=== PATIENT | male | born 1940 | race Caucasian/White ===

== ENCOUNTER 2016-06-05 15:25 | Inpatient (IN) ==
--- NOTE | 2016-06-05 15:56 | Emergency Department Note ---
Disposition Clinical Impression: Right shoulder pain, Elevated troponin Disposition: Admitted As Inpatient Condition: Fair [facility] - Forms: Work/School Release, ED Satisfaction Letter Time of Disposition: 18:40 Syncope HPI - General Chief Complaint: ED General Medical Stated Complaint: + trop, high WBC Time Seen by Provider: 06/05/16 15:36 Source: patient, EMS Limitations: no limitations Nursing Notes Reviewed: Yes Vital Signs Reviewed: Yes - History of Present Illness HPI Narrative: Patient to the emergency department with a chief complaint of right shoulder pain. Patient went to the [place] today because he is having pain from his right shoulder to his elbow. Denies injury. States it started about a week ago and has gotten worse. No fever. Patient states she had a syncopal episode as well yesterday. His last thing he remembers is waking up with EMS at his feet. Patient went to the [place] urgent care today and was found to have an elevated white blood cell count troponin. He was sent here for evaluation. - Related Data Home Medications Medication Instructions Recorded Confirmed Aspirin 1 mg PO DAILY 11/13/14 06/05/16 Digoxin [Lanoxin] 0.125 mg PO DAILY 11/13/14 06/05/16 Losartan [Cozaar] 25 mg PO DAILY 11/13/14 06/05/16 Metoprolol Succinate 200 mg PO DAILY 11/13/14 06/05/16 Nitroglycerin [Nitrostat] 0.4 mg SL Q5M PRN 11/13/14 06/05/16 Randolph-3 Fatty Acids [Randolph-3] 2,000 mg PO BID 11/13/14 06/05/16 Potassium Chloride 10 meq PO DAILY 11/13/14 06/05/16 Rivaroxaban [Xarelto] 15 mg PO DAILY 11/13/14 06/05/16 Spironolactone 25 mg PO DAILY 11/13/14 06/05/16 Terazosin HCl 1 mg PO HS 11/13/14 06/05/16 Tiotropium [Spiriva] 18 mcg IH DAILY 11/13/14 06/05/16 Acetaminophen [Tylenol] 650 mg PO TID PRN 06/05/16 06/05/16 Albuterol Sulfate [Albuterol 2 puff IH Q6H PRN 06/05/16 06/05/16 Inhaler] Allopurinol [Zyloprim 100 MG] 100 mg PO DAILY 06/05/16 06/05/16 Calcium Citrate 400 mg PO DAILY 06/05/16 06/05/16 Carboxymethylcellulose Sodium 1 drop BOTH EYES QID 06/05/16 06/05/16 [Refresh Liquigel] Cholecalciferol (D-3) [Vitamin D] 2,000 unit PO DAILY 06/05/16 06/05/16 Cyclobenzaprine [Flexeril] 10 mg PO TID PRN 06/05/16 06/05/16 Dextrose [Glucose] 4 gm PO AD PRN 06/05/16 06/05/16 Diclofenac Sodium [Voltaren] 2 gm TP BID PRN 06/05/16 06/05/16 Ergocalciferol (VITAMIN D2) 50,000 unit PO QWEEK 06/05/16 06/05/16 [Vitamin D2] Etanercept [Enbrel] 50 mg SQ QWEEK 06/05/16 06/05/16 Eucerin Creme 1 appl TP DAILY 06/05/16 06/05/16 Hydroxychloroquine [Plaquenuil] 200 mg PO BID 06/05/16 06/05/16 Insulin ASPART [NovoLOG] 25 unit SQ TIDWM 06/05/16 06/05/16 Insulin Glargine,Hum.rec.anlog 55 unit SQ BID 06/05/16 06/05/16 [Lantus Solostar] Ketotifen Fumarate 1 drop BOTH EYES BID 06/05/16 06/05/16 Lidocaine 4% CRM (LMX) [Lmx 4] 1 appl TP BID PRN 06/05/16 06/05/16 Metformin HCl [Fortamet] 1,000 mg PO QPM 06/05/16 06/05/16 Metolazone [Zaroxolyn] 2.5 mg PO 3XW 06/05/16 06/05/16 Mineral Oil/Petrolatum,White 1 appl BOTH EYES HS 06/05/16 06/05/16 [Refresh P.m. Ointment] Olodaterol HCl [Striverdi Respimat] 2 puff IH DAILY 06/05/16 06/05/16 Omeprazole [PriLOSEC] 20 mg PO DAILY 06/05/16 06/05/16 Pregabalin [Lyrica] 75 mg PO BID 06/05/16 06/05/16 Probenecid [Benemid] 500 mg PO BID 06/05/16 06/05/16 Simvastatin [Zocor] 10 mg PO QPM 06/05/16 06/05/16 Torsemide [Demadex] 40 mg PO BID 06/05/16 06/05/16 Allergies Allergy/AdvReac Type Severity Reaction Status Date / Time codeine AdvReac Unknown See Verified 08/23/15 10:10 Comments atorvastatin [From Lipitor] AdvReac See Verified 06/05/16 16:47 Comments lisinopril AdvReac Cough Verified 08/23/15 10:10 pravastatin AdvReac See Verified 06/05/16 16:47 Comments rosuvastatin [From Crestor] AdvReac See Verified 08/23/15 10:10 Comments All systems ED: reviewed and negative except as stated. Constitutional: Denies: fever Cardiovascular: Denies: chest pain Respiratory: Denies: dyspnea Past Medical History - Past Medical History Attestation: Yes The following information was validated with the patient. Source: patient Medical history: Reports: atrial fibrillation, CHF, COPD, diabetes, hyperlipidemia, hypertension, myocardial infarction Surgical history: Reports: other (cardiac catherization 2012) Psychiatric history: Reports: no psych history - Social History Smoking Status: Current some day smoker Smokeless Tobacco Status: No Alcohol use: Reports: none Drug use: Reports: none Physical Exam Patient awake and alert sitting up in bed. Tenderness from the shoulder to the elbow. There is no swelling warmth or erythema. - General Limitations: no limitations General appearance: alert, in no apparent distress - Head Head exam: atraumatic, normocephalic - Eye Eye exam: Present: normal appearance, PERRL - ENT ENT exam: normal exam - Neck Neck exam: Present: normal inspection - Chest Chest inspection: Present: normal inspection - Respiratory Respiratory exam: Present: normal lung sounds bilaterally - Cardiovascular Cardiovascular exam: Present: regular rate, normal rhythm, normal heart sounds - Abdominal Exam Abdominal exam: Present: soft, Non-Tender - Neurological Exam Neurological exam: Present: alert, oriented X3, CN II-XII intact - Psychiatric Psychiatric exam: Present: normal affect - Skin Skin exam: Present: warm, dry, intact Course Course Narrative: Patient is in no acute distress. Unclear with causing the shoulder pain. We will image the humerus where his pain is. We will check an ultrasound for DVT. He does have an elevated white blood cell count. Unknown source. Cardiac workup as well. Patient will be admitted. - Reevaluation(s) Reevaluation #1: The patient's renal function is worsened. His troponin is elevated above his baseline. He is not having chest pain. Shoulder pain appears to be orthopedic as he will not move it. Considering arthrocentesis at this time as I cannot expand his leukocytosis. Time: 17:35 - Consultations Consultation #1: Angella khalil will see in consult Time: 18:39 Consultation #2: Kimani accepts Time: 18:40 Vital Signs Temperature 98.2 F 06/05/16 15:27 Pulse Rate 74 06/05/16 15:27 Respiratory Rate 18 06/05/16 15:27 Blood Pressure 140/76 06/05/16 15:27 O2 Sat by Pulse Oximetry 93 L 06/05/16 15:27 Temperature 98.2 F 06/05/16 15:27 Pulse Rate 78 06/05/16 18:38 Respiratory Rate 18 06/05/16 18:38 Blood Pressure 146/83 06/05/16 18:38 O2 Sat by Pulse Oximetry 93 L 06/05/16 18:38 Oxygen Delivery Oxygen Delivery Nasal Cannula Procedures - Joint Aspiration/Injection Joint Aspiration/Injection 1 Consent Obtained: written consent Time Out Performed: Yes Side of body: right Joint Aspirated: shoulder Ultrasound Guidance: No Skin Prep: Chlorhexidine Local Anesthetic: lidocaine 1% Amount of anesthesia used (mL): 5 Needle Size Used: 18G Fluid Obtained: turbid Total Fluid Obtained (mls): 5 Patient Tolerated Procedure: well Complications: none Additional Comments: Procedure performed by myself and Dr. Barth. Syncope - [facility] Narrative Medical decision making narrative: Unclear the cause of the shoulder pain. Patient has a significant leukocytosis above baseline. Sedimentation rate greater than 1:30. Arthrocentesis was performed and will start prophylactic anabiotics for septic arthritis. Orthopedics has been consulted and will see patient in the hospital. Admitted to medicine. - Lab Data Result diagrams: 06/05/16 16:47 06/05/16 16:47 Lab Results 06/05/16 06/05/16 06/05/16 Range/Units 16:47 16:47 16:47 WBC 18.1 H (4.3-11.1) K/mcL RBC 3.89 L (4.19-5.50) M/mcL Hgb 11.2 L (12.9-16.9) g/dL Hct 33.1 L (37.5-50.1) % MCV 85.1 (83.0-100.0) fL MCH 28.8 (28.0-33.3) pg MCHC 33.8 (31.6-35.5) g/dL RDW 16.1 H (11.5-14.5) % Plt Count 345 (140-400) K/mcL MPV 10.3 (9.4-12.4) fL Immature Gran % 0.8 (0-4) % Seg Neutrophils % 76.5 % Lymphocytes % 10.0 % Monocytes % 12.3 % Eosinophils % 0.1 % Basophils % 0.3 % Neutrophils # 13.9 H (1.6-8.9) K/mcL Lymphocytes # 1.8 (0.6-4.6) K/mcL Monocytes # 2.2 H (0.0-1.3) K/mcL Eosinophils # 0.0 (0.0-0.6) K/mcL Basophils # 0.1 (0.0-0.2) K/mcL ESR (0-10) mm/hr PT 14.0 H (9.4-12.1) Seconds INR 1.3 APTT 29.2 (26.0-36.0) Seconds Sodium 133 L (136-145) mEq/L Potassium 3.1 L (3.5-4.5) mEq/L Chloride 87 L (98-109) mEq/L Carbon Dioxide 30 H (19-29) mEq/L BUN 66 H (8-26) mg/dL Creatinine 1.84 H (0.72-1.25) mg/dL Est GFR ( Amer) 44 L (> 60) Est GFR (Non-Af Amer) 36 L (> 60) BUN/Creatinine Ratio 36 H (6-26) Glucose 302 H (70-99) mg/dL Calculated Osmolality 306 H (280-300) Lactic Acid (0.5-2.2) mmol/L Calcium 9.9 (8.6-10.8) mg/dL Troponin I (0-0.03) ng/mL Urine Color (Yellow) Urine Clarity (Clear) Urine pH (5.0-8.0) pH Units Ur Specific [place] (1.010-1.025) Urine Protein (Neg-Trace) mg/dL Urine Glucose (UA) (Normal) mg/dL Urine Ketones (Negative) mg/dL Urine Blood (Negative) Urine Nitrite (Negative) Urine Bilirubin (Negative) Urine Urobilinogen (Normal) mg/dL Ur Leukocyte Esterase (Negative) Urine Microscopic RBC (0-3) per hpf Urine Microscopic WBC (0-3) per hpf Ur Squamous Epith Cells (None-Few) per lpf Urine Bacteria (None-Few) per hpf Hyaline Casts (None-Few) per lpf Synovial Source Synovial Crystals (None Seen) Synovial Glucose (No Ref Range) mg/dL Synovial Total Protein (No Ref Range) g/dL Digoxin 0.6 L (0.8-2.0) ng/mL 06/05/16 06/05/16 06/05/16 Range/Units 16:47 16:47 16:47 WBC (4.3-11.1) K/mcL RBC (4.19-5.50) M/mcL Hgb (12.9-16.9) g/dL Hct (37.5-50.1) % MCV (83.0-100.0) fL MCH (28.0-33.3) pg MCHC (31.6-35.5) g/dL RDW (11.5-14.5) % Plt Count (140-400) K/mcL MPV (9.4-12.4) fL Immature Gran % (0-4) % Seg Neutrophils % % Lymphocytes % % Monocytes % % Eosinophils % % Basophils % % Neutrophils # (1.6-8.9) K/mcL Lymphocytes # (0.6-4.6) K/mcL Monocytes # (0.0-1.3) K/mcL Eosinophils # (0.0-0.6) K/mcL Basophils # (0.0-0.2) K/mcL ESR >= 130 H (0-10) mm/hr PT (9.4-12.1) Seconds INR APTT (26.0-36.0) Seconds Sodium (136-145) mEq/L Potassium (3.5-4.5) mEq/L Chloride (98-109) mEq/L Carbon Dioxide (19-29) mEq/L BUN (8-26) mg/dL Creatinine (0.72-1.25) mg/dL Est GFR ( Amer) (> 60) Est GFR (Non-Af Amer) (> 60) BUN/Creatinine Ratio (6-26) Glucose (70-99) mg/dL Calculated Osmolality (280-300) Lactic Acid 1.3 (0.5-2.2) mmol/L Calcium (8.6-10.8) mg/dL Troponin I 0.53 H* (0-0.03) ng/mL Urine Color (Yellow) Urine Clarity (Clear) Urine pH (5.0-8.0) pH Units Ur Specific [place] (1.010-1.025) Urine Protein (Neg-Trace) mg/dL Urine Glucose (UA) (Normal) mg/dL Urine Ketones (Negative) mg/dL Urine Blood (Negative) Urine Nitrite (Negative) Urine Bilirubin (Negative) Urine Urobilinogen (Normal) mg/dL Ur Leukocyte Esterase (Negative) Urine Microscopic RBC (0-3) per hpf Urine Microscopic WBC (0-3) per hpf Ur Squamous Epith Cells (None-Few) per lpf Urine Bacteria (None-Few) per hpf Hyaline Casts (None-Few) per lpf Synovial Source Synovial Crystals (None Seen) Synovial Glucose (No Ref Range) mg/dL Synovial Total Protein (No Ref Range) g/dL Digoxin (0.8-2.0) ng/mL 06/05/16 06/05/16 Range/Units 18:23 18:32 WBC (4.3-11.1) K/mcL RBC (4.19-5.50) M/mcL Hgb (12.9-16.9) g/dL Hct (37.5-50.1) % MCV (83.0-100.0) fL MCH (28.0-33.3) pg MCHC (31.6-35.5) g/dL RDW (11.5-14.5) % Plt Count (140-400) K/mcL MPV (9.4-12.4) fL Immature Gran % (0-4) % Seg Neutrophils % % Lymphocytes % % Monocytes % % Eosinophils % % Basophils % % Neutrophils # (1.6-8.9) K/mcL Lymphocytes # (0.6-4.6) K/mcL Monocytes # (0.0-1.3) K/mcL Eosinophils # (0.0-0.6) K/mcL Basophils # (0.0-0.2) K/mcL ESR (0-10) mm/hr PT (9.4-12.1) Seconds INR APTT (26.0-36.0) Seconds Sodium (136-145) mEq/L Potassium (3.5-4.5) mEq/L Chloride (98-109) mEq/L Carbon Dioxide (19-29) mEq/L BUN (8-26) mg/dL Creatinine (0.72-1.25) mg/dL Est GFR ( Amer) (> 60) Est GFR (Non-Af Amer) (> 60) BUN/Creatinine Ratio (6-26) Glucose (70-99) mg/dL Calculated Osmolality (280-300) Lactic Acid (0.5-2.2) mmol/L Calcium (8.6-10.8) mg/dL Troponin I (0-0.03) ng/mL Urine Color Yellow (Yellow) Urine Clarity Clear (Clear) Urine pH 6.0 (5.0-8.0) pH Units Ur Specific [place] 1.015 (1.010-1.025) Urine Protein 100 H (Neg-Trace) mg/dL Urine Glucose (UA) Normal (Normal) mg/dL Urine Ketones Negative (Negative) mg/dL Urine Blood Trace H (Negative) Urine Nitrite Negative (Negative) Urine Bilirubin Negative (Negative) Urine Urobilinogen Normal (Normal) mg/dL Ur Leukocyte Esterase Negative (Negative) Urine Microscopic RBC 3-5 H (0-3) per hpf Urine Microscopic WBC 0-3 (0-3) per hpf Ur Squamous Epith Cells Many H (None-Few) per lpf Urine Bacteria None Seen (None-Few) per hpf Hyaline Casts Few (None-Few) per lpf Synovial Source right shoulder Synovial Crystals Urate Crystals Seen (None Seen) Synovial Glucose 278 (No Ref Range) mg/dL Synovial Total Protein 5.1 (No Ref Range) g/dL Digoxin (0.8-2.0) ng/mL - EKG Data EKG results narrative: Paced at 77 Critical Care Time Critical Care Time: Yes Total Critical Care Time: 30 Attestation: Critical care performed: Time is exclusive of separately billable procedures. Time includes: direct patient care, patient reassessment, coordination of patient care, interpretation of data (laboratory data, radiology data, and respiratory data), review of patient's medical records, medical consultation and documentation of patient care. Procedures included in critical care time: Procedures excluded from critical care time:
[2016-06-05 16:57] LABS: Basophils # 0.1 K/mcL (0.0-0.2); Basophils % 0.3 %; Eosinophils % 0.1 %; Hematocrit 33.1 % (37.5-50.1); Hemoglobin 11.2 g/dL (12.9-16.9); Immature Granulocytes % 0.8 % (0-4); Lymphocytes # 1.8 K/mcL (0.6-4.6); Mean Corpuscular HGB Conc 33.8 g/dL (31.6-35.5); Mean Corpuscular Hemoglobin 28.8 pg (28.0-33.3); Mean Corpuscular Volume 85.1 fL (83.0-100.0); Mean Platelet Volume 10.3 fL (9.4-12.4); Monocytes # 2.2 K/mcL (0.0-1.3); Monocytes % 12.3 %; Neutrophils # 13.9 K/mcL (1.6-8.9); Platelet Count 345 K/mcL (140-400); Red Blood Count 3.89 M/mcL (4.19-5.50); Red Cell Distribution Width 16.1 % (11.5-14.5); Segmented Neutrophils % 76.5 %
[2016-06-05 17:03] LABS: INR 1.3
[2016-06-05 17:06] LABS: Activated Partial Thrombo Time 29.2 Seconds (26.0-36.0)
[2016-06-05 17:08] LABS: Calcium 9.9 mg/dL (8.6-10.8); Potassium 3.1 mEq/L (3.5-4.5)
[2016-06-05] MEDS ORDERED: Lidocaine 1% 20 ML MDV INFILT ONE (17:34)
[2016-06-05] MEDS ORDERED: *HR* FentaNYL (PF) 100 MCG/2 ML VIAL IV ONE (17:59)
[2016-06-05] MEDS ORDERED: Levofloxacin 500 MG/100 ML 500 MG/100 ML BAG IVPB ONE (18:31)
[2016-06-05] MEDS ORDERED: Vancomycin 1,000 MG in D5% in Water 250 ML IV ONE (18:31)
[2016-06-05 18:32] LABS: Digoxin 0.6 ng/mL (0.8-2.0)
[2016-06-05 18:33] LABS: Source,Synovial Fluid right shoulder
[2016-06-05 18:33] LABS: Bilirubin,Urine Negative (Negative); Blood,Urine Trace (Negative); Clarity,Urine Clear (Clear); Color,Urine Yellow (Yellow); Glucose,Urine (UA) Normal (Normal); Ketones,Urine Negative (Negative); Leukocyte Esterase,Urine Negative (Negative); Nitrite,Urine Negative (Negative); Protein,Urine 100 mg/dL (Neg-Trace); Specific Gravity,Urine 1.015 (1.010-1.025); Urobilinogen,Urine Normal (Normal)
[2016-06-05 18:36] LABS: Bacteria,Urine None Seen per hpf (None-Few); Hyaline Casts,Urine Few per lpf (None-Few); Squamous Epithelial Cell,Urine Many per lpf (None-Few); WBC,Urine 0-3 per hpf (0-3)
[2016-06-05] MEDS ORDERED: Aspirin 325 MG TABLET PO ONE (18:42)
[2016-06-05 18:52] LABS: Glucose,Synovial Fluid 278 mg/dL (No Ref Range)
[2016-06-05 19:12] LABS: LDH,Synovial Fluid 2005 Units/L (No Ref Range)
[2016-06-05 19:27] LABS: Appearance,Synovial Fluid Cloudy (Clear-Hazy); Color,Synovial Fluid Straw (Straw)
[2016-06-05] MEDS ORDERED: Acetaminophen 325 MG TABLET PO PRN (20:09)
[2016-06-05] MEDS ORDERED: Naloxone 0.4 MG/ML INJ IVP PRN (20:09)
[2016-06-05] MEDS ORDERED: Ondansetron 4 MG/2 ML VIAL IVP PRN (20:09)
[2016-06-05] MEDS ORDERED: 0.9 % Sodium Chloride 1,000 ML IVC SCH (20:15)
[2016-06-05] MEDS ORDERED: Dextrose Gel 15 GM PO PRN ×2 (20:16)
[2016-06-05] MEDS ORDERED: *HR* Dextrose 50 % in Water (Syg) 50 ML SYRINGE IVP PRN (20:16)
[2016-06-05] MEDS ORDERED: D5% in Water 1,000 ML IV PRN (20:16)
[2016-06-05] MEDS ORDERED: Lidocaine 4% CREAM (LMX) 5 GM TP PRN (20:24)
[2016-06-05] MEDS ORDERED: Nitroglycerin 0.4 MG TAB.SUBL SL PRN (20:24)
--- NOTE | 2016-06-05 20:38 | Internal Med History&Physical ---
Date of Encounter: 06/05/16 Time of Encounter: 19:40 Assessment and Plan (1) Right shoulder pain Current visit: Yes Status: Acute 1. Based upon history, exam, and lab results thus far, I'm somewhat concerned for septic arthritis vs RA flare. 2. Culture of joint fluid and blood sent in ER. 3. Continue IV antibiotics and follow cultures closely. 4. Orthopedics consulted from ER. 5. Will hold off on steroids until infection ruled out. 6. Consider rheumatology consult inpatient if available. Qualifiers: Chronicity: acute Qualified Code(s): M25.511 - Pain in right shoulder (2) Syncope Current visit: Yes Status: Acute 1. Unwitnessed event; patient does not remember events leading up to it. He remembers awakening to EMS. 2. Cycle troponins. 3. Will order ECHO. 4. Consult cardiology given troponin elevation and for pacer interrogation. 5. Will start on heparin gtt if troponins climb and if Head CT negative. Qualifiers: Syncope type: unspecified Qualified Code(s): R55 - Syncope and collapse (3) IDDM (insulin dependent diabetes mellitus) Current visit: Yes Status: Chronic 1. Continue home basal insulin and SSI. 2. Hold Metformin. 3. Monitor and adjust insulin as necessary. (4) Elevated troponin Current visit: Yes Status: Acute 1. Cycle troponins. 2. Patient asymptomatic. 3. Continue home meds as appropriate. 4. Will initiate ACS treatment if troponins climb and/or patient becomes symptomatic. 5. Check Head CT first prior to heparin gtt given syncope and concurrent use of Xarelto. 6. ECHO and cardiology consult as above. 7. Possibly falsely elevated due to AJ on CKD. (5) Acute kidney injury Current visit: No Status: Acute 1. Hold diuretics and ARB. 2. Tiffany IVF hydration and monitor I/O closely and renal function as well. 3. Consider nephrology consult if not improving. (6) DVT prophylaxis Current visit: Yes Status: Acute 1. Heparin SQ. 2. Patient may be placed on Heparin gtt later pending his clinical course. Internal Medicine - H&P: HPI Chief complaint: right shoulder pain; syncope; + troponin Admitted From: Emergency Dept Plans for Post Hospital Care: Home History of present illness: Mr. Altman is a 76 year old male who was sent to the ER from the [facility] urgent care. Patient presented to the [facility] urgent care with complaints of right shoulder pain for several days. Additionally, he had a syncopal event today, which led to his calling 911. Evaluation at the NH revealed patient to have pain in his right shoulder and right elbow concerning for possible septic arthritis versus flare up of his rheumatoid arthritis. Additionally, he had a positive troponin. He was subsequently transferred to the [place] ER. Workup in the ER here revealed patient to have troponin of 0.53 with unremarkable EKG changes. He has a paced rhythm on his EKG. He had no anginal symptoms on history, however. He did have an arthrocentesis performed in the ER of his right shoulder which is concerning for possible infection of his shoulder joint. Consult was called to Dr. Deleon from the ER staff. He was subsequently admitted to the hospitalist service. Upon my assessment of the patient, he has no complaints other than pain and warmth and swelling of his right shoulder. He denies any trauma or injury to his shoulder. However, he did have a syncopal event and he might have landed on his shoulder. He did have a CT of his right humerus which showed some effusion and possible nondisplaced fracture of the radial head. Given the fluid analysis of his right shoulder arthrocentesis, pain, and limited range of motion, it is concerning for possible septic arthritis. Has had cultures drawn and antibiotics initiated as well. He denies any soreness or trauma to his head. However, given the syncopal event and the fact that he is on Xarelto, I' m going to order a stat CT of the head. Additionally, we will monitor him closely from a cardiac standpoint and perform serial troponins as well. Past Med Surg Social Fam HX - Past Medical History Attestation: Yes The following information was validated with the patient. Source: patient, old records reviewed Medical history: atrial fibrillation, CHF, COPD, diabetes, hyperlipidemia, hypertension, myocardial infarction Psychiatric history: no psych history - Past Surgical History Surgical History: pacemaker/AICD, other (cardiac catherization 2012) - Social History Smoking Status: Current some day smoker Smokeless Tobacco Status: No Alcohol use: none Drug use: none Current living situation: Home, With Family Activity Level: Independent ambulation Recent Out of Country Travel Within the Last 8 Weeks: No - Family History Mother History Unknown: Yes Adopted: No Living Status: Internal Medicine - H&P: Meds Aspirin 1 mg PO DAILY 11/13/14 [History] Digoxin [Lanoxin] 0.125 mg PO DAILY 11/13/14 [History] Losartan [Cozaar] 25 mg PO DAILY 11/13/14 [History] Metoprolol Succinate 200 mg PO DAILY 11/13/14 [History] Nitroglycerin [Nitrostat] 0.4 mg SL Q5M PRN 11/13/14 [History] [place]-3 Fatty Acids [[place]-3] 2,000 mg PO BID 11/13/14 [History] Potassium Chloride 10 meq PO DAILY 11/13/14 [History] Rivaroxaban [Xarelto] 15 mg PO DAILY 11/13/14 [History] Spironolactone 25 mg PO DAILY 11/13/14 [History] Terazosin HCl 1 mg PO HS 11/13/14 [History] Tiotropium [Spiriva] 18 mcg IH DAILY 11/13/14 [History] Acetaminophen [Tylenol] 650 mg PO TID PRN 06/05/16 [History] Albuterol Sulfate [Albuterol Inhaler] 2 puff IH Q6H PRN 06/05/16 [History] Allopurinol [Zyloprim 100 MG] 100 mg PO DAILY 06/05/16 [History] Calcium Citrate 400 mg PO DAILY 06/05/16 [History] Carboxymethylcellulose Sodium [Refresh Liquigel] 1 drop BOTH EYES QID 06/05/16 [ History] Cholecalciferol (D-3) [Vitamin D] 2,000 unit PO DAILY 06/05/16 [History] Cyclobenzaprine [Flexeril] 10 mg PO TID PRN 06/05/16 [History] Dextrose [Glucose] 4 gm PO AD PRN 06/05/16 [History] Diclofenac Sodium [Voltaren] 2 gm TP BID PRN 06/05/16 [History] Ergocalciferol (VITAMIN D2) [Vitamin D2] 50,000 unit PO QWEEK 06/05/16 [History] Etanercept [Enbrel] 50 mg SQ QWEEK 06/05/16 [History] Eucerin Creme 1 appl TP DAILY 06/05/16 [History] Hydroxychloroquine [Plaquenuil] 200 mg PO BID 06/05/16 [History] Insulin ASPART [NovoLOG] 25 unit SQ TIDWM 06/05/16 [History] Insulin Glargine,Hum.rec.anlog [Lantus Solostar] 55 unit SQ BID 06/05/16 [ History] Ketotifen Fumarate 1 drop BOTH EYES BID 06/05/16 [History] Lidocaine 4% CRM (LMX) [Lmx 4] 1 appl TP BID PRN 06/05/16 [History] Metformin HCl [Fortamet] 1,000 mg PO QPM 06/05/16 [History] Metolazone [Zaroxolyn] 2.5 mg PO 3XW 06/05/16 [History] Mineral Oil/Petrolatum,White [Refresh P.m. Ointment] 1 appl BOTH EYES HS [History] Olodaterol HCl [Striverdi Respimat] 2 puff IH DAILY 06/05/16 [History] Omeprazole [PriLOSEC] 20 mg PO DAILY 06/05/16 [History] Pregabalin [Lyrica] 75 mg PO BID 06/05/16 [History] Probenecid [Benemid] 500 mg PO BID 06/05/16 [History] Simvastatin [Zocor] 10 mg PO QPM 06/05/16 [History] Torsemide [Demadex] 40 mg PO BID 06/05/16 [History] Allergies codeine Adverse Reaction (Unknown, Verified 08/23/15 10:10) See Comments unknown reaction atorvastatin [From Lipitor] Adverse Reaction (Verified 06/05/16 16:47) See Comments va list lisinopril Adverse Reaction (Verified 08/23/15 10:10) Cough pravastatin Adverse Reaction (Verified 06/05/16 16:47) See Comments va list rosuvastatin [From Crestor] Adverse Reaction (Verified 08/23/15 10:10) See Comments causes kidney stones - Constitutional Constitutional: no chills, no fever(s), no falls - EENT Eyes: no blurry vision, no change in vision Ears: no ear pain, no tinnitus Nose, mouth and throat: no nasal congestion, no sinus pressure, no sore throat - Cardiovascular Cardiovascular ROS IM: syncope, no chest pain, no dyspnea, no dyspnea on exertion, no lightheadedness, no palpitations - Respiratory Respiratory: no cough, no dyspnea, no dyspnea on exertion, no wheezing, no chest congestion - Gastrointestinal Gastrointestinal: no abdominal pain, no diarrhea, no nausea, no vomiting - Genitourinary Genitourinary ROS male: no dysuria, no flank pain, no hematuria - Musculoskeletal Musculoskeletal ROS IM: arthralgias (right shoulder), limited range of motion - Integumentary Integumentary IM: no rash, no unusual bruising - Neurological Neurological ROS: no disequilibrium, no dizziness, no focal weakness, no frequent falls, no headache(s), no vertigo, no weakness - Psychiatric Psychiatric: no anxiety, no depression - Endocrine Endocrine IM: no polydipsia, no polyuria - Hematologic/Lymphatic Hematologic/Lymphatic: easy bruising, no lymphadenopathy - Allergic/Immunologic Allergic/Immunologic: no wheezing, no GI upset with certain foods - Constitutional Vitals: Temp Pulse Resp BP Pulse Ox 98.2 F 74 16 139/70 95 06/05/16 15:27 06/05/16 20:13 06/05/16 20:13 06/05/16 20:13 06/05/16 20:13 General appearance: Present: cooperative, A&O X 3, pleasant, answers questions appropriately - Head Head exam: Present: atraumatic, normal inspection - Expanded Head Exam Head exam expanded: Absent: abrasion, contusion, general tenderness, hematoma - Eye Eye exam: Present: EOMI, normal appearance. Absent: scleral icterus Pupils: Present: normal accommodation - ENT ENT exam: Present: mucous membranes dry, normal exam, normal oropharynx - Neck Neck exam general surgery: Present: full ROM, supple. Absent: lymphadenopathy, tenderness - Expanded Neck Exam Neck exam: Absent: carotid bruit - Respiratory Respiratory exam: Present: CTAB, prolonged expiratory phase. Absent: rales, respiratory distress, rhonchi, wheezes - Cardiovascular Cardiovascular exam: Present: RRR, +S1, +S2. Absent: diastolic murmur, JVD, systolic murmur Additional comments: palpable pacer in left upper chest - GI/Abdominal GI/Abdominal exam: Present: normal bowel sounds, soft. Absent: guarding, hepatomegaly, rebound, splenomegaly, tenderness - Extremities Exam Extremities exam: Present: joint swelling (right shoulder), normal capillary refill, tenderness (right shoulder warm, tender, limited ROM), warm. Absent: calf tenderness - Back Exam Back exam: Present: normal inspection. Absent: CVA tenderness (L), CVA tenderness (R) - Neurological Exam Neurological exam: Present: alert, CN II-XII intact, oriented X3, no focal deficits - Psychiatric Psychiatric exam: Present: normal affect, normal mood. Absent: anxious, depressed - Skin Skin exam: Present: dry, warm. Absent: rash Internal Med - H&P Results - Labs CBC & Chem 7: 06/05/16 16:47 06/05/16 16:47 Labs: Short CBC 06/05/16 Range/Units 16:47 WBC 18.1 H (4.3-11.1) K/mcL Hgb 11.2 L (12.9-16.9) g/dL Hct 33.1 L (37.5-50.1) % Plt Count 345 (140-400) K/mcL Neutrophils # 13.9 H (1.6-8.9) K/mcL BMP 06/05/16 16:47 Sodium 133 L Potassium 3.1 L Chloride 87 L Carbon Dioxide 30 H BUN 66 H Creatinine 1.84 H Glucose 302 H Calcium 9.9 Cardiac Enzymes 06/05/16 Range/Units 16:47 Troponin I 0.53 H* (0-0.03) ng/mL Urine 06/05/16 Range/Units 18:23 Urine Color Yellow (Yellow) Urine Clarity Clear (Clear) Urine pH 6.0 (5.0-8.0) pH Units Ur Specific [place] 1.015 (1.010-1.025) Urine Protein 100 H (Neg-Trace) mg/dL Urine Glucose (UA) Normal (Normal) mg/dL - EKG Data -: EKG Interpreted by Myself - EKG Data Prior EKG available for review: no EKG comments: 06/05/16 20:44 ventricular paced rhythm - Impressions ITS Impressions Chest X-Ray 06/05/16 15:36 IMPRESSION: Mild pulmonary vascular congestion D/ / Ky Maldonado MD / Ky Maldonado MD Interpreting Provider: Ky Maldonado MD Humerus CT 06/05/16 15:36 IMPRESSION: 1. Elbow effusion with a suspected small nondisplaced radial head fracture. 2. Moderate to severe acromioclavicular and mild glenohumeral degenerative changes. D/ / Ronald Zaragoza MD / Ronald Zaragoza MD Interpreting Provider: Ronald Zaragoza MD
[2016-06-05] MEDS ORDERED: Vancomycin 1,750 MG in D5% in Water 250 ML IVPB SCH (21:00)
--- NOTE | 2016-06-05 21:38 | Venous Imaging Report ---
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 Recommendations: Preliminary given to Dr Cuevas in ED. Findings Venous Duplex Results: Right: Venous imaging of the upper extremity reveals full patency and normal vessel compressibility of the right jugular, right subclavian, right axillary, right brachial, right cephalic, right basilic forearm, right radial and right ulnar. Doppler signals in the evaluated veins were normal. Prior Study: No prior study available for comparison. Upper Extremity Venous Duplex Side Vein Compress Spontaneous Flow Augment Right Jugular Normal Yes Phasic Yes Right Subclavian Normal Yes Phasic Yes Right Axillary Normal Yes Phasic Yes Right Brachial Normal Yes Phasic Yes Right Cephalic Normal Yes Phasic Yes Right Basilic Forearm Normal Yes Phasic Yes Right Radial Normal Yes Phasic Yes Right Ulnar Normal Yes Phasic Yes Updated by Sean Orr MD, FACS on 06/05/2016 9:33:30 PM Sean Orr MD electronically signed on 06/05/2016 9:34:02 PM with status of Final
[2016-06-05] MEDS ORDERED: Vancomycin 750 MG in D5% in Water 250 ML IVPB ONE (22:00)
[2016-06-05] MEDS: Insulin DETEMIR 100 UNIT/ML X5UNITS SQ SCH (22:57)
[2016-06-05] MEDS: Pregabalin 75 MG CAPSULE PO SCH (22:57)
[2016-06-05] MEDS: Ketotifen Fumarate OP SCH (23:07)
[2016-06-06] MEDS: Artificial Tears SOLN 15 ML BOTTLE BOTH EYES SCH ×5 (00:24→22:34)
[2016-06-06] MEDS: Lacri-Lube 3.5 GM TUBE BOTH EYES SCH ×2 (00:24→22:55)
[2016-06-06] MEDS: Piperacillin/Tazobactam 3.375 GM in D5% in Water (Mini-Bag+) 100 ML IVPB SCH ×3 (00:26→17:07)
[2016-06-06 05:34] LABS: Basophils % 0.1 %; Eosinophils # 0.1 K/mcL (0.0-0.6); Eosinophils % 0.4 %; Hematocrit 32.1 % (37.5-50.1); Hemoglobin 10.8 g/dL (12.9-16.9); Immature Granulocytes % 0.6 % (0-4); Lymphocytes # 1.8 K/mcL (0.6-4.6); Lymphocytes % 11.5 %; Mean Corpuscular HGB Conc 33.6 g/dL (31.6-35.5); Mean Corpuscular Hemoglobin 28.8 pg (28.0-33.3); Mean Corpuscular Volume 85.6 fL (83.0-100.0); Mean Platelet Volume 10.6 fL (9.4-12.4); Monocytes % 12.7 %; Neutrophils # 11.7 K/mcL (1.6-8.9); Platelet Count 332 K/mcL (140-400); Red Blood Count 3.75 M/mcL (4.19-5.50); Segmented Neutrophils % 74.7 %
[2016-06-06 05:42] LABS: Albumin 2.3 g/dL (3.5-5.0); Albumin/Globulin Ratio 0.4 (1.1-2.2); Bilirubin,Total 0.7 mg/dL (0.2-1.2); Calcium 9.8 mg/dL (8.6-10.8); Chol/HDL Ratio 9.8 (0-4.9); Globulin 5.3 g/dL (2.4-3.5); Magnesium 1.6 mg/dL (1.6-2.6); Potassium 3.3 mEq/L (3.5-4.5)
[2016-06-06 05:44] LABS: Total Protein 7.6 g/dL (6.0-8.3)
[2016-06-06 05:48] LABS: Digoxin 0.5 ng/mL (0.8-2.0)
[2016-06-06] MEDS ORDERED: *HR* Heparin 5,000 UNIT/ML VIAL SQ SCH (07:00)
--- NOTE | 2016-06-06 07:16 | Orthopedic Consult Note ---
Date of Encounter: 06/06/16 Time of Encounter: 07:10 Assessment and Plan (1) Right shoulder pain Current Visit: Yes Status: Braeden Ball is a 76-year-old male with right shoulder pain and right elbow pain admitted to the hospitalist with an elevated white count. Aspiration does show uric acid crystals. He has a history of rheumatoid arthritis. He is also found to have a radial head fracture. My suspicion is low for septic arthropathy and cultures are pending at this point but the Gram stain was negative. The lab was unable to obtain a synovial white cell count given a granularity of the sample. This may be related to the uric acid crystals that were present. My recommendation at this point is follow-up on the culture and observation given that the patient is feeling better in the right shoulder region. Consideration for anti-inflammatory versus steroid treatment could be given at this point. Sling for comfort to the right upper extremity and motion as tolerated regarding the elbow and shoulder. We will follow clinically. Qualifiers: Chronicity: acute Qualified Code(s): M25.511 - Pain in right shoulder History of Present Illness HPI: Mr. Altman is a 76 year old male who is an independent ambulator. He has a history of gout as well as rheumatoid arthritis and indicates that he is on medication for both. He comes in with a one-week history of right shoulder pain and also indicates that his right elbow hurts. Per the chart there is a history of a syncopal episode yesterday, however the patient denies and says that he had accidentally soiled himself in the bathroom and during cleanup lowered himself to the ground. Nevertheless he was admitted to the hospitalist because of an elevated white count and the patient had his right shoulder aspirated by the emergency department. This was sent for culture, Gram stain, and crystal analysis. This morning the patient indicates that his right shoulder feels much better and says his only complaint at this point is pain in his bilateral feet. At baseline the patient says he has not had any significant use of his right upper extremity for over a year now, thinking it is "related to neuropathy." He does complain of some numbness and tingling to this extremity but is unable to really characterize any further. He has no other complaints. Past Med Surg Social Fam HX - Past Medical History Medical history: arthritis, atrial fibrillation, CHF, COPD, diabetes, hyperlipidemia, hypertension, myocardial infarction Psychiatric history: no psych history - Past Surgical History Surgical History: pacemaker/AICD, other - Social History Smoking Status: Former smoker Smokeless Tobacco Status: No Alcohol use: none Drug use: none - Family History Mother History Unknown: Yes Adopted: No Living Status: Medications and Allergies Aspirin 1 mg PO DAILY 11/13/14 [History] Digoxin [Lanoxin] 0.125 mg PO DAILY 11/13/14 [History] Losartan [Cozaar] 25 mg PO DAILY 11/13/14 [History] Metoprolol Succinate 200 mg PO DAILY 11/13/14 [History] Nitroglycerin [Nitrostat] 0.4 mg SL Q5M PRN 11/13/14 [History] [place]-3 Fatty Acids [[place]-3] 2,000 mg PO BID 11/13/14 [History] Potassium Chloride 10 meq PO DAILY 11/13/14 [History] Rivaroxaban [Xarelto] 15 mg PO DAILY 11/13/14 [History] Spironolactone 25 mg PO DAILY 11/13/14 [History] Terazosin HCl 1 mg PO HS 11/13/14 [History] Tiotropium [Spiriva] 18 mcg IH DAILY 11/13/14 [History] Acetaminophen [Tylenol] 650 mg PO TID PRN 06/05/16 [History] Albuterol Sulfate [Albuterol Inhaler] 2 puff IH Q6H PRN 06/05/16 [History] Allopurinol [Zyloprim 100 MG] 100 mg PO DAILY 06/05/16 [History] Calcium Citrate 400 mg PO DAILY 06/05/16 [History] Carboxymethylcellulose Sodium [Refresh Liquigel] 1 drop BOTH EYES QID 06/05/16 [ History] Cholecalciferol (D-3) [Vitamin D] 2,000 unit PO DAILY 06/05/16 [History] Cyclobenzaprine [Flexeril] 10 mg PO TID PRN 06/05/16 [History] Dextrose [Glucose] 4 gm PO AD PRN 06/05/16 [History] Diclofenac Sodium [Voltaren] 2 gm TP BID PRN 06/05/16 [History] Ergocalciferol (VITAMIN D2) [Vitamin D2] 50,000 unit PO QWEEK 06/05/16 [History] Etanercept [Enbrel] 50 mg SQ QWEEK 06/05/16 [History] Eucerin Creme 1 appl TP DAILY 06/05/16 [History] Hydroxychloroquine [Plaquenuil] 200 mg PO BID 06/05/16 [History] Insulin ASPART [NovoLOG] 25 unit SQ TIDWM 06/05/16 [History] Insulin Glargine,Hum.rec.anlog [Lantus Solostar] 55 unit SQ BID 06/05/16 [ History] Ketotifen Fumarate 1 drop BOTH EYES BID 06/05/16 [History] Lidocaine 4% CRM (LMX) [Lmx 4] 1 appl TP BID PRN 06/05/16 [History] Metformin HCl [Fortamet] 1,000 mg PO QPM 06/05/16 [History] Metolazone [Zaroxolyn] 2.5 mg PO 3XW 06/05/16 [History] Mineral Oil/Petrolatum,White [Refresh P.m. Ointment] 1 appl BOTH EYES HS [History] Olodaterol HCl [Striverdi Respimat] 2 puff IH DAILY 06/05/16 [History] Omeprazole [PriLOSEC] 20 mg PO DAILY 06/05/16 [History] Pregabalin [Lyrica] 75 mg PO BID 06/05/16 [History] Probenecid [Benemid] 500 mg PO BID 06/05/16 [History] Simvastatin [Zocor] 10 mg PO QPM 06/05/16 [History] Torsemide [Demadex] 40 mg PO BID 06/05/16 [History] Allergies codeine Adverse Reaction (Unknown, Verified 08/23/15 10:10) See Comments unknown reaction atorvastatin [From Lipitor] Adverse Reaction (Verified 06/05/16 16:47) See Comments va list lisinopril Adverse Reaction (Verified 08/23/15 10:10) Cough pravastatin Adverse Reaction (Verified 06/05/16 16:47) See Comments va list rosuvastatin [From Crestor] Adverse Reaction (Verified 08/23/15 10:10) See Comments causes kidney stones All Systems Reviewed: Constitutional and musculoskeletal systems were reviewed and are negative unless otherwise stated in history of present illness. Physical Exam - Constitutional Vitals: Temp Pulse Resp BP Pulse Ox 98.2 F 77 20 142/66 93 L 06/06/16 04:59 06/06/16 04:59 06/06/16 04:59 06/06/16 04:59 06/06/16 04:59 Constitutional -Vitals reviewed -The patient is well developed and well nourished. -Mood is pleasant. -The patient is well groomed. Psychiatric -The patient is fully alert and oriented x 3. Respiratory: -Respiratory effort normal Abdomen: -Soft abdomen -Non tender -Non distended: Left upper extremity: -No deformities. The overlying skin is intact. No obvious signs of acute trauma. -No tenderness to palpation throughout. -No significant pain with passive motion of the shoulder, elbow, wrist, and fingers within the limits of the bed. -Able to make an "OK" sign, cross the index and long fingers, and extend the thumb. -Sensation grossly intact to light touch throughout the median, radial, and ulnar distributions. -Radial pulse is present; Fingers have good capillary refill. Right upper extremity: -No deformities. The overlying skin is intact. No obvious signs of acute trauma. -Mild tenderness anteriorly in the shoulder region and over the acromioclavicular joint. -Tenderness both medially and laterally over the elbow and significantly focal over the radial head. -I can gently internally and externally rotate the shoulder within the limits of the bed without significant discomfort. He does have significant stiffness with attempts at shoulder abduction passively which he says is chronic and painful. -I can gently flex and extend the elbow within the limits of the bed without significant discomfort. -Able to make an "OK" sign, has difficulty crossing the index and long fingers, and can extend the thumb. -Sensation grossly intact to light touch throughout the median, radial, and ulnar distributions. -Radial pulse is present; Fingers have good capillary refill. Left lower extremity: -No deformities. The overlying skin is intact. No obvious signs of acute trauma. -No tenderness to palpation throughout. -No pain with passive motion of the hip, knee, ankle, and toes within the limits of the bed. -No pain with axial loading of the thigh. -Able to dorsiflex and plantarflex the ankle and toes. -Sensation is grossly intact to light touch throughout the sural, saphenous, superficial peroneal, and deep peroneal distributions. -Toes have good capillary refill. Right lower extremity: -No deformities. The overlying skin is intact. No obvious signs of acute trauma. -No tenderness to palpation throughout. -No pain with passive motion of the hip, knee, ankle, and toes within the limits of the bed. -No pain with axial loading of the thigh. -Able to dorsiflex and plantarflex the ankle and toes. -Sensation is grossly intact to light touch throughout the sural, saphenous, superficial peroneal, and deep peroneal distributions. -Toes have good capillary refill. Results - Labs Result Diagrams: 06/06/16 05:18 06/06/16 05:18 Labs: Abnormal lab results WBC 15.7 K/mcL (4.3-11.1) H 06/06/16 05:18 RBC 3.75 M/mcL (4.19-5.50) L 06/06/16 05:18 Hgb 10.8 g/dL (12.9-16.9) L 06/06/16 05:18 Hct 32.1 % (37.5-50.1) L 06/06/16 05:18 RDW 16.0 % (11.5-14.5) H 06/06/16 05:18 Neutrophils # 11.7 K/mcL (1.6-8.9) H 06/06/16 05:18 Monocytes # 2.0 K/mcL (0.0-1.3) H 06/06/16 05:18 ESR >= 130 mm/hr (0-10) H 06/05/16 16:47 PT 14.0 Seconds (9.4-12.1) H 06/05/16 16:47 Sodium 134 mEq/L (136-145) L 06/06/16 05:18 Potassium 3.3 mEq/L (3.5-4.5) L 06/06/16 05:18 Chloride 90 mEq/L (98-109) L 06/06/16 05:18 Carbon Dioxide 31 mEq/L (19-29) H 06/06/16 05:18 BUN 58 mg/dL (8-26) H 06/06/16 05:18 Creatinine 1.63 mg/dL (0.72-1.25) H 06/06/16 05:18 Est GFR ( Amer) 50 (> 60) L 06/06/16 05:18 Est GFR (Non-Af Amer) 41 (> 60) L 06/06/16 05:18 BUN/Creatinine Ratio 36 (6-26) H 06/06/16 05:18 Glucose 358 mg/dL (70-99) H 06/06/16 05:18 Calculated Osmolality 309 (280-300) H 06/06/16 05:18 Troponin I 0.49 ng/mL (0-0.03) H* 06/06/16 05:18 Albumin 2.3 g/dL (3.5-5.0) L 06/06/16 05:18 Globulin 5.3 g/dL (2.4-3.5) H 06/06/16 05:18 Albumin/Globulin Ratio 0.4 (1.1-2.2) L 06/06/16 05:18 Triglycerides 219 mg/dL (< 150) H 06/06/16 05:18 VLDL Cholesterol, Calc 44 mg/dL (< 31) H 06/06/16 05:18 HDL Cholesterol 16 mg/dL (40-59) L 06/06/16 05:18 Cholesterol/HDL Ratio 9.8 (0-4.9) H 06/06/16 05:18 Urine Protein 100 mg/dL (Neg-Trace) H 06/05/16 18:23 Urine Blood Trace (Negative) H 06/05/16 18:23 Urine Microscopic RBC 3-5 per hpf (0-3) H 06/05/16 18:23 Ur Squamous Epith Cells Many per lpf (None-Few) H 06/05/16 18:23 Digoxin 0.5 ng/mL (0.8-2.0) L 06/06/16 05:18 H & H 06/06/16 Range/Units 05:18 Hgb 10.8 L (12.9-16.9) g/dL Hct 32.1 L (37.5-50.1) % All other labs normal. - Diagnostic results Shoulder CT: image reviewed (CT of the humerus shows a possible radial neck fracture. No humeral fracture seen. Arthritic change of the shoulder and AC joint.) Consult Discharge Plan - Plan [facility]errals: [facility] Care Provider[facility] -
[2016-06-06] MEDS: *HR* Digoxin 0.125 MG TABLET PO SCH (08:05)
[2016-06-06] MEDS: Pregabalin 75 MG CAPSULE PO SCH ×2 (08:05→22:33)
[2016-06-06] MEDS: Insulin DETEMIR 100 UNIT/ML X5UNITS SQ SCH ×2 (08:06→22:33)
[2016-06-06] MEDS: Metoprolol XL (24 HR) Succ 50 MG TAB.ER.24H PO SCH (08:06)
[2016-06-06] MEDS: Cholecalciferol (D-3) 1,000 UNIT TABLET PO SCH (08:06)
[2016-06-06] MEDS: Aspirin 81 MG TAB.CHEW PO SCH (08:07)
[2016-06-06] MEDS: Insulin LISPRO 300 UNITS/3 ML VIAL SQ SCH ×4 (08:07→22:34)
[2016-06-06] MEDS: *HR* Morphine 2 MG/ML SYRINGE IVP PRN ×2 (08:38→12:02)
[2016-06-06] MEDS: Tiotropium 18 MCG inhalation IH SCH (10:48)
--- NOTE | 2016-06-06 11:31 | Internal Med Progress Note ---
<Vira Castro - Last Filed: 06/06/16 13:35> Date of Encounter: 06/06/16 Time of Encounter: 08:30 - Assessment and plan (1) Right shoulder pain Current Visit: Yes Status: Acute Assessment and plan: CT of right humerus showed elbow effusion with a suspected small nondisplaced radial head fracture, with moderate to severe acromioclavicular and mild glenohumeral degenerative changes. venous duplex of right upper extremity showed no clots. joint fluid culture pending. blood cultures pending. Orthopedic surgery has evaluated the patient, and they stated that suspicion is low for septic arthropathy. Uric acid crystals shown in fluid-started colchicine. Patient had essentially no range of motion of right upper extremity on physical exam and he says it has been that way for some time- consult to PT/OT continue with pain control with morphine and percocet. continue with vanc and zosyn until cultures result. Qualifiers: Chronicity: acute Qualified Code(s): M25.511 - Pain in right shoulder (2) Syncope Current Visit: Yes Status: Acute Assessment and plan: Patient had an unwitnessed syncopal event. EV echo pending. Consult to cardiology made. They stated they would check his pacemaker to make sure it is working properly. will check orthostatic vitals. CT head showed no acute intracranial process-resumed home med Xarelto. Qualifiers: Syncope type: unspecified Qualified Code(s): R55 - Syncope and collapse (3) IDDM (insulin dependent diabetes mellitus) Current Visit: Yes Status: Chronic Assessment and plan: sugars high in 300s switched from low to medium dose SSI. home basal insulin dosing. hold metformin. ACHS accuchecks. (4) Elevated troponin Current Visit: Yes Status: Acute Assessment and plan: Patient is chest pain free. troponins have decreased from .53 to .49, will continue to trend. CT head showed no acute intracranial abnormality. may be falsely elevated in context of AJ and CKD. (5) Acute kidney injury Current Visit: No Status: Acute Assessment and plan: Patient's Cr is continuing to decrease CXR mild pulmonary vascular congestion. Fluids stopped, patient appears volume overloaded. Re started home med torsamide at half the dose. continue to monitor. (6) Afib Current Visit: Yes Status: Acute Assessment and plan: continue Xarelto Qualifiers: Atrial fibrillation type: unspecified Qualified Code(s): I48.91 - Unspecified atrial fibrillation (7) DVT prophylaxis Current Visit: Yes Status: Acute Assessment and plan: stopped heparin continue home med Xarelto. - Subjective Interval history: 76 year old male evaluated at bedside. Patient denies chest pain, denies nausea , vomiting. He reports some diarrhea. He still complains of right shoulder pain. He denies fevers and chills. - Constitutional Vitals: Temp Pulse Resp BP Pulse Ox 98.5 F 78 16 123/73 94 L 06/06/16 07:19 06/06/16 07:19 06/06/16 07:19 06/06/16 07:19 06/06/16 07:19 General appearance: Present: cooperative, A&O X 3, pleasant, answers questions appropriately - Head Head exam: Present: atraumatic, normocephalic - Neck Neck exam general surgery: Present: supple, trachea midline - Respiratory Respiratory exam: Present: rhonchi, wheezes - Cardiovascular Cardiovascular exam: Present: distant heart sounds - GI/Abdominal GI/Abdominal exam: Present: normal bowel sounds. Absent: guarding, soft Additional comments: obese, distended, non tender, positive bowel sounds. - Extremities Exam Additional comments: Left upper extremity: full range of motion. Right upper extremity has no range of motion and severe pain. right lower extremity has +2 pitting edema, discoloration and dry skin present bilaterally on lower extremities. - Neurological Exam Neurological exam: Present: alert, oriented X3, no focal deficits - Psychiatric Psychiatric exam: Present: anxious - Skin Additional comments: bilateral lower extremity skin dry and peeling. Internal Medicine: Result - Labs CBC & Chem 7: 06/06/16 05:18 06/06/16 05:18 Labs: Short CBC 06/06/16 Range/Units 05:18 WBC 15.7 H (4.3-11.1) K/mcL Hgb 10.8 L (12.9-16.9) g/dL Hct 32.1 L (37.5-50.1) % Plt Count 332 (140-400) K/mcL Neutrophils # 11.7 H (1.6-8.9) K/mcL BMP 06/06/16 05:18 Sodium 134 L Potassium 3.3 L Chloride 90 L Carbon Dioxide 31 H BUN 58 H Creatinine 1.63 H Glucose 358 H Calcium 9.8 Cardiac Enzymes 06/06/16 Range/Units 05:18 Troponin I 0.49 H* (0-0.03) ng/mL Liver Function 06/06/16 Range/Units 05:18 Total Bilirubin 0.7 (0.2-1.2) mg/dL AST 28 (5-34) Units/L ALT 21 (0-55) Units/L Alkaline Phosphatase 88 (38-126) Units/L Albumin 2.3 L (3.5-5.0) g/dL - ABG Interpretation ABG results: PT/INR, D-dimer PT 14.0 Seconds (9.4-12.1) H 06/05/16 16:47 Consult Discharge Plan - Plan [facility] Provider[facility] - 06/12/16 3:30 pm <Piero Portillo - Last Filed: 06/06/16 17:14> Date of Encounter: 06/06/16 - Assessment and plan (1) Ventricular fibrillation Current Visit: Yes Status: Acute (2) Syncope Current Visit: Yes Status: Acute Qualifiers: Syncope type: unspecified Qualified Code(s): R55 - Syncope and collapse (3) Gout attack Current Visit: Yes Status: Acute Qualifiers: Gout site: shoulder Gout etiology: idiopathic Laterality: right Qualified Code(s): M10.011 - Idiopathic gout, right shoulder (4) Diabetes mellitus type 2, insulin dependent Current Visit: No Status: Chronic (5) Hypertension Current Visit: No Status: Chronic Qualifiers: Hypertension type: essential hypertension Qualified Code(s): I10 - Essential (primary) hypertension - Constitutional Vitals: Temp Pulse Resp BP Pulse Ox 97.6 F 75 16 146/66 95 06/06/16 11:30 06/06/16 16:19 06/06/16 11:30 06/06/16 16:19 06/06/16 11:30 Internal Medicine: Result - Labs CBC & Chem 7: 06/06/16 05:18 06/06/16 05:18 Labs: Short CBC 06/06/16 Range/Units 05:18 WBC 15.7 H (4.3-11.1) K/mcL Hgb 10.8 L (12.9-16.9) g/dL Hct 32.1 L (37.5-50.1) % Plt Count 332 (140-400) K/mcL Neutrophils # 11.7 H (1.6-8.9) K/mcL BMP 06/06/16 05:18 Sodium 134 L Potassium 3.3 L Chloride 90 L Carbon Dioxide 31 H BUN 58 H Creatinine 1.63 H Glucose 358 H Calcium 9.8 Cardiac Enzymes 06/06/16 06/06/16 Range/Units 05:18 13:42 Troponin I 0.49 H* 0.25 H* (0-0.03) ng/mL Liver Function 06/06/16 Range/Units 05:18 Total Bilirubin 0.7 (0.2-1.2) mg/dL AST 28 (5-34) Units/L ALT 21 (0-55) Units/L Alkaline Phosphatase 88 (38-126) Units/L Albumin 2.3 L (3.5-5.0) g/dL - ABG Interpretation ABG results: PT/INR, D-dimer PT 14.0 Seconds (9.4-12.1) H 06/05/16 16:47 - Attending Attestation I examined this patient and my medical decision-making was reviewed with the Resident Physician on 06/06/16. I agree with the documented findings, disposition and treatment plan as described except to the extent set forth below. Mr. Altman is currently admitted for acute gout flare and syncope. Interrogation of his pacer has revealed ventricular fibrillation. He is high risk due to the potential for cardiac complications. Mr. Altman feels very tired and dyspneic with exertion. No fever or chills. Pain in shoulder is somewhat better. No CP. No GI symptoms. Exam Alert. Comfortable Heart reg Lungs diminished but clear I/P 1. Syncope due to v fib 2. acute gout flare Further diagnoses and plan as above.
[2016-06-06] MEDS: Colchicine 0.6 MG TABLET PO SCH ×2 (12:05→22:33)
[2016-06-06] MEDS ORDERED: *HR* Morphine 2 MG/ML SYRINGE IVP PRN (12:47)
[2016-06-06] MEDS: Ketotifen Fumarate OP SCH ×2 (13:03→22:34)
[2016-06-06] MEDS ORDERED: Acetaminophen 325 MG TABLET PO PRN (13:09)
[2016-06-06] MEDS: Torsemide 20 MG TABLET PO SCH ×2 (14:29→22:33)
[2016-06-06] MEDS ORDERED: Lidocaine 4% CREAM (LMX) 5 GM TP PRN (14:56)
[2016-06-06] MEDS: *HR* Amiodarone 200 MG TABLET PO SCH ×2 (17:06→22:36)
[2016-06-06] MEDS: *HR* OxyCODONE/APAP 5/325 TABLET PO PRN (17:06)
--- NOTE | 2016-06-06 17:19 | Electrocardiograph Report ---
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
[2016-06-06] MEDS ORDERED: Vancomycin 1,750 MG in D5% in Water 500 ML IVPB SCH (22:00)
[2016-06-07] MEDS: *HR* OxyCODONE/APAP 5/325 TABLET PO PRN ×3 (01:50→22:44)
[2016-06-07] MEDS: Piperacillin/Tazobactam 3.375 GM in D5% in Water (Mini-Bag+) 100 ML IVPB SCH ×3 (01:51→17:51)
[2016-06-07 06:31] LABS: Basophils % 0.3 %; Eosinophils # 0.2 K/mcL (0.0-0.6); Hematocrit 32.6 % (37.5-50.1); Hemoglobin 10.7 g/dL (12.9-16.9); Immature Platelets 4.3 % (1.1-6.1); Lymphocytes # 2.1 K/mcL (0.6-4.6); Lymphocytes % 13.5 %; Mean Corpuscular HGB Conc 32.8 g/dL (31.6-35.5); Mean Corpuscular Hemoglobin 28.7 pg (28.0-33.3); Mean Corpuscular Volume 87.4 fL (83.0-100.0); Mean Platelet Volume 10.2 fL (9.4-12.4); Monocytes # 1.8 K/mcL (0.0-1.3); Monocytes % 11.6 %; Neutrophils # 11.4 K/mcL (1.6-8.9); Platelet Count 363 K/mcL (140-400); Red Blood Count 3.73 M/mcL (4.19-5.50); Red Cell Distribution Width 16.1 % (11.5-14.5); Segmented Neutrophils % 72.6 %
[2016-06-07 06:44] LABS: Ionized Calcium 1.1 mmol/L (1.15-1.35)
[2016-06-07 06:45] LABS: Albumin 2.3 g/dL (3.5-5.0); Albumin/Globulin Ratio 0.4 (1.1-2.2); Bilirubin,Total 0.6 mg/dL (0.2-1.2); Calcium 9.9 mg/dL (8.6-10.8); Globulin 5.5 g/dL (2.4-3.5); Magnesium 1.5 mg/dL (1.6-2.6); Phosphorous 2.9 mg/dL (2.3-4.7); Potassium 3.3 mEq/L (3.5-4.5); Total Protein 7.8 g/dL (6.0-8.3)
--- NOTE | 2016-06-07 07:54 | Cardiology Consult Note ---
Date of Encounter: 06/07/16 Time of Encounter: 07:52 Assessment and Plan Discussion w patient/family: The assessment and plan as outlined above was discussed with the patient and/or family members who expressed understanding and agreement. All questions were answered. Thank you for involving us in the care of your patient. Please call with any questions. plan; a/w Amio IV for now will review echo cont williams stop Zaroxylyn - may have caused low K no indications for cath at present re check K / Mag Thanks History of Present Illness History of present illness: Mr. Altman is a 76 year old male Mr. Altman is a 76 year old male who was sent to the ER from the [facility]. Patient presented to the [facility] urgent care with complaints of right shoulder pain for several days. Additionally, he had a syncopal event today, which led to his calling 911. Evaluation at the [facility] revealed patient to have pain in his right shoulder and right elbow concerning for possible septic arthritis versus flare up of his rheumatoid arthritis. Additionally, he had a positive troponin. He was subsequently transferred to the [place] ER. Workup in the ER here revealed patient to have troponin of 0.53 with unremarkable EKG changes. He has a paced rhythm on his EKG. He had no anginal symptoms on history, however. He did have an arthrocentesis performed in the ER of his right shoulder which is concerning for possible infection of his shoulder joint. Interrogation of his ICD showed 2 episodes of VFIb that were pace terminated. 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% Has been having some sob , coyne upon admission K was 3.1 his Optivol suggests fluid retention presently pt is stable Past Med Surg Social Fam HX - Past Medical History Medical history: arthritis, atrial fibrillation, CHF, COPD, diabetes, hyperlipidemia, hypertension, myocardial infarction Psychiatric history: no psych history - Past Surgical History Surgical History: pacemaker/AICD, other - Social History Smoking Status: Former smoker Smokeless Tobacco Status: No Alcohol use: none Drug use: none - Family History Mother History Unknown: Yes Adopted: No Living Status: Medications and Allergies Aspirin 1 mg PO DAILY 11/13/14 [History] Digoxin [Lanoxin] 0.125 mg PO DAILY 11/13/14 [History] Losartan [Cozaar] 25 mg PO DAILY 11/13/14 [History] Metoprolol Succinate 200 mg PO DAILY 11/13/14 [History] Nitroglycerin [Nitrostat] 0.4 mg SL Q5M PRN 11/13/14 [History] Fayette-3 Fatty Acids [Fayette-3] 2,000 mg PO BID 11/13/14 [History] Potassium Chloride 10 meq PO DAILY 11/13/14 [History] Rivaroxaban [Xarelto] 15 mg PO DAILY 11/13/14 [History] Spironolactone 25 mg PO DAILY 11/13/14 [History] Terazosin HCl 1 mg PO HS 11/13/14 [History] Tiotropium [Spiriva] 18 mcg IH DAILY 11/13/14 [History] Acetaminophen [Tylenol] 650 mg PO TID PRN 06/05/16 [History] Albuterol Sulfate [Albuterol Inhaler] 2 puff IH Q6H PRN 06/05/16 [History] Allopurinol [Zyloprim 100 MG] 100 mg PO DAILY 06/05/16 [History] Calcium Citrate 400 mg PO DAILY 06/05/16 [History] Carboxymethylcellulose Sodium [Refresh Liquigel] 1 drop BOTH EYES QID 06/05/16 [ History] Cholecalciferol (D-3) [Vitamin D] 2,000 unit PO DAILY 06/05/16 [History] Cyclobenzaprine [Flexeril] 10 mg PO TID PRN 06/05/16 [History] Dextrose [Glucose] 4 gm PO AD PRN 06/05/16 [History] Diclofenac Sodium [Voltaren] 2 gm TP BID PRN 06/05/16 [History] Ergocalciferol (VITAMIN D2) [Vitamin D2] 50,000 unit PO QWEEK 06/05/16 [History] Etanercept [Enbrel] 50 mg SQ QWEEK 06/05/16 [History] Eucerin Creme 1 appl TP DAILY 06/05/16 [History] Hydroxychloroquine [Plaquenuil] 200 mg PO BID 06/05/16 [History] Insulin ASPART [NovoLOG] 25 unit SQ TIDWM 06/05/16 [History] Insulin Glargine,Hum.rec.anlog [Lantus Solostar] 55 unit SQ BID 06/05/16 [ History] Ketotifen Fumarate 1 drop BOTH EYES BID 06/05/16 [History] Lidocaine 4% CRM (LMX) [Lmx 4] 1 appl TP BID PRN 06/05/16 [History] Metformin HCl [Fortamet] 1,000 mg PO QPM 06/05/16 [History] Metolazone [Zaroxolyn] 2.5 mg PO 3XW 06/05/16 [History] Mineral Oil/Petrolatum,White [Refresh P.m. Ointment] 1 appl BOTH EYES HS [History] Olodaterol HCl [Striverdi Respimat] 2 puff IH DAILY 06/05/16 [History] Omeprazole [PriLOSEC] 20 mg PO DAILY 06/05/16 [History] Pregabalin [Lyrica] 75 mg PO BID 06/05/16 [History] Probenecid [Benemid] 500 mg PO BID 06/05/16 [History] Simvastatin [Zocor] 10 mg PO QPM 06/05/16 [History] Torsemide [Demadex] 40 mg PO BID 06/05/16 [History] Allergies codeine Adverse Reaction (Unknown, Verified 08/23/15 10:10) See Comments unknown reaction atorvastatin [From Lipitor] Adverse Reaction (Verified 06/05/16 16:47) See Comments [facility] list lisinopril Adverse Reaction (Verified 08/23/15 10:10) Cough pravastatin Adverse Reaction (Verified 06/05/16 16:47) See Comments [facility] list rosuvastatin [From Crestor] Adverse Reaction (Verified 08/23/15 10:10) See Comments causes kidney stones All Systems Review: A 10-system review of systems was performed and is negative for pertinent findings except as documented above in the HPI. Physical Examination Vital Signs, Last 4 Hours Temp Pulse Resp BP Pulse Ox 06/07/16 07:43 98.2 F 75 16 128/71 97 06/07/16 06:00 97.4 F L 74 20 134/82 96 Results 06/07/16 06:22 06/07/16 06:22 Lab Results 06/06/16 06/06/16 06/06/16 13:42 17:49 19:47 WBC Hgb Hct Plt Count Sodium Potassium 3.1 L Chloride Carbon Dioxide BUN Creatinine Glucose Calcium Magnesium Total Bilirubin AST ALT Alkaline Phosphatase Troponin I 0.25 H* 0.21 H* 06/07/16 06/07/16 06:22 06:22 WBC 15.7 H Hgb 10.7 L Hct 32.6 L Plt Count 363 Sodium 136 Potassium 3.3 L Chloride 92 L Carbon Dioxide 31 H BUN 51 H Creatinine 1.46 H Glucose 185 H Calcium 9.9 Magnesium 1.5 L Total Bilirubin 0.6 AST 35 H ALT 28 Alkaline Phosphatase 93 Troponin I Consult Discharge Plan - Plan Referrals: [facility],PCP [Primary Care Provider] - 06/12/16 3:30 pm
--- NOTE | 2016-06-07 09:18 | ECHO - Doppler Report ---
Echocardiogram Name: Quinn Altman Date of Study: 06/06/2016 Date: 1940 Ht: 68.0 in Medical Record#: [id number] Age: 76 Wt: 252.0 lb Gender: Male BSA: 2.25 Order #: [id number] Location: [facility] Room #: 2NE19 Reading Physician: Enrique Zavala MD, [facility] [employer] Records Clerk: Joslyn Caldera RDCS Ordering Physician: Loi Gee MD Primary Physician: [facility] Indications: Elevated troponin Impressions: LVEF 30-35%. No pulmonary hypertension. Diastolic dysfunction, NOS Severe global and segmental left ventricular systolic dysfunction. No significant valvular dysfunction. Left Ventricular Wall Motion: Rest Echo Findings The apical inferior, mid inferior, basal inferior, apical anterior, mid anterior, basal anterior, apical septal, mid inferior septal, basal inferior septal, apical lateral, mid anterior lateral, basal anterior lateral, mid anterior septal, mid inferior lateral, basal anterior septal and basal inferior lateral bustamante were hypokinetic. The apex wall was akinetic. Findings: Interatrial Septum * No evidence of PFO by color Doppler. * Lipomatous interatrial septum. Aorta * Normally sized aortic root. Left Atrium * Mildly dilated left atrium. Device lead * A device lead was visualized in the right atrium and right ventricle. Tricuspid Valve * Estimated RVSP is 12 mmHg. * Estimated RA pressure is 5-8 mmHg. * No pulmonary hypertension. Study Quality * Technically sub-optimal due to body habitus. Left Ventricle * LVEF 30-35%. * Atypical septal motion consistent with paced rhythm. * Diastolic dysfunction, NOS * Severe global and segmental left ventricular systolic dysfunction. Right Ventricle * Mildly dilated right ventricle with normal function Pericardium * There is a trivial pericardial effusion present. ECG Findings * Paced rhythm. IVC * The IVC is dilated. * > 50% respiratory change Mitral Valve * Trace mitral regurgitation. * No mitral stenosis. Aortic Valve * No aortic regurgitation. * No aortic stenosis. * Aortic valve not well visualized. Right Atrium * Right atrium is not well visualized. History Hypertension Diabetes Hypercholesteremia History of CAD/PTCA Myocardial Infarction Congestive Heart Failure Pacer/ICD Implant 10/17/2015 a Previous Echo was performed. Measurements: BP: 154/ 104 2D Normal Values RVIDd: 2.91 cm <2.7 cm IVSd: .99 cm 0.6 - 1.0 cm LVIDd: 6.96 cm 3.7 - 5.6 cm LVPWd: 1.41 cm 0.6 - 1.1 cm LVIDs: 5.83 cm 1.5 - 3.6 cm AO: 2.60 cm < 4.0 cm LA: 4.00 cm 2.0 - 4.0cm %FS: 16.20 cm >25 % LA volume: 68 Mitral Valve Peak E:1.19 m/sec Peak A:.78 m/sec E/A Ratio:1.5 Peak E' Lat Walter:7.71 cm/s Peak E' Med Walter:8.7 cm/s E/E' Lat Ratio:15.4 E/E' Med Ratio:13.7 Tricuspid Valve TV Regurg Peak Grad: 12.00mmHg TV Regurg Peak Walter: 1.76m/sec Updated by Enrique Zavala MD, [facility] on 06/07/2016 9:09:30 AM electronically signed on 06/07/2016 9:14:40 AM with status of Final Wall Motion Agosto: 1=Normal, 2=Hypokinesis, 3=Akinesis, 4=Dyskinesis, 5=Aneurysmal, 6=Hyperkinetic, X=Not Visualized (Blank)=Missing
[2016-06-07] MEDS: Ketotifen Fumarate OP SCH ×2 (09:21→22:47)
[2016-06-07] MEDS: Cholecalciferol (D-3) 1,000 UNIT TABLET PO SCH (09:33)
[2016-06-07] MEDS: Metoprolol XL (24 HR) Succ 50 MG TAB.ER.24H PO SCH (09:33)
[2016-06-07] MEDS: *HR* Digoxin 0.125 MG TABLET PO SCH (09:33)
[2016-06-07] MEDS: Colchicine 0.6 MG TABLET PO SCH ×2 (09:33→22:45)
[2016-06-07] MEDS: Aspirin 81 MG TAB.CHEW PO SCH (09:33)
[2016-06-07] MEDS: Pregabalin 75 MG CAPSULE PO SCH ×2 (09:33→22:45)
[2016-06-07] MEDS: *HR* Amiodarone 200 MG TABLET PO SCH ×2 (09:33→22:45)
[2016-06-07] MEDS: Insulin LISPRO 300 UNITS/3 ML VIAL SQ SCH ×4 (09:34→22:46)
[2016-06-07] MEDS: Artificial Tears SOLN 15 ML BOTTLE BOTH EYES SCH ×4 (09:34→22:46)
[2016-06-07] MEDS: Insulin DETEMIR 100 UNIT/ML X5UNITS SQ SCH ×2 (09:34→22:49)
[2016-06-07] MEDS: Torsemide 20 MG TABLET PO SCH ×2 (09:34→22:45)
[2016-06-07] MEDS: Tiotropium 18 MCG inhalation IH SCH (10:28)
[2016-06-07] MEDS ORDERED: Magnesium Sulfate 2 GM in D5% in Water 100 ML IVPB ONE (11:01)
--- NOTE | 2016-06-07 11:56 | Internal Med Progress Note ---
<Singh Resendez - Last Filed: 06/07/16 11:52> Date of Encounter: 06/07/16 Time of Encounter: 11:52 - Assessment and plan (1) Gout attack Current Visit: Yes Status: Acute Assessment and plan: Patient had acute onset right shoulder pain, it was tapped which revealed uric acid crystals. Continue allopurinol and colchicine. Patient states the pain is improving. Qualifiers: Gout site: shoulder Gout etiology: idiopathic Laterality: right Qualified Code(s): M10.011 - Idiopathic gout, right shoulder (2) Syncope Current Visit: Yes Status: Acute Assessment and plan: Likely caused by arrhythmia. Pacer/defibrillator interrogation reveals several episodes of ventricular fibrillation. Patient did not receive an AICD firing. Cardiology is following the patient and are attempting to obtain complete records on the patient's cardiac history to determine if any adjustments to the patient's pacer/defib settings need to be made. We will replace the patient's electrolytes including potassium and magnesium. No arrhythmias since admission noted. Qualifiers: Syncope type: unspecified Qualified Code(s): R55 - Syncope and collapse (3) Acute kidney injury Current Visit: No Status: Resolved Assessment and plan: Likely related to vascular congestion. Creatinine is improved to baseline with diuresis. We will continue to monitor. (4) Positive blood culture Current Visit: Yes Status: Acute Assessment and plan: Likely contaminant. Patient had one of 2 blood cultures positive for staph aureus with mecA gene. Patient does have a leukocytosis but no other clinical signs of infection. Leukocytosis could be related to patient's current gout attack. Synovial fluid Gram stain and culture are negative to date. We have repeated blood cultures, we will continue vancomycin until repeat blood cultures returned negative. TTE was performed which showed no evidence of vegetation. If the patient does have persistently positive blood cultures we will obtain a ROSARIO to evaluate for vegetation or infected wire leads. (5) Afib Current Visit: Yes Status: Acute Assessment and plan: Stable. Patient currently has a paced rhythm with rate controlled. Continue anticoagulation with Xarelto Qualifiers: Atrial fibrillation type: unspecified Qualified Code(s): I48.91 - Unspecified atrial fibrillation (6) IDDM (insulin dependent diabetes mellitus) Current Visit: Yes Status: Chronic Assessment and plan: Blood sugars under better control his morning. Continue current insulin regimen with basal and sliding scale insulin. (7) DVT prophylaxis Current Visit: Yes Status: Acute Assessment and plan: Patient currently on Xarelto - Subjective Interval history: Patient seen and examined at bedside. Patient states he feels better today. States his shoulder pain is improving. Patient denies any chest pain, palpitations, syncopal episodes, dyspnea. - Constitutional Vitals: Temp Pulse Resp BP Pulse Ox 98.2 F 75 16 128/71 97 06/07/16 07:43 06/07/16 07:43 06/07/16 07:43 06/07/16 07:43 06/07/16 08:00 General appearance: Present: cooperative, A&O X 3, pleasant, answers questions appropriately - Respiratory Respiratory exam: Present: CTAB. Absent: rales, rhonchi, wheezes - Cardiovascular Cardiovascular exam: Present: RRR. Absent: gallop, rubs, systolic murmur - GI/Abdominal GI/Abdominal exam: Present: normal bowel sounds, soft. Absent: distended, tenderness - Extremities Exam Extremities exam: Present: pedal edema. Absent: calf tenderness, tenderness - Neurological Exam Neurological exam: Present: alert, CN II-XII intact, oriented X3, no focal deficits Internal Medicine: Result - Labs CBC & Chem 7: 06/07/16 06:22 06/07/16 06:22 Labs: Short CBC 06/07/16 Range/Units 06:22 WBC 15.7 H (4.3-11.1) K/mcL Hgb 10.7 L (12.9-16.9) g/dL Hct 32.6 L (37.5-50.1) % Plt Count 363 (140-400) K/mcL Neutrophils # 11.4 H (1.6-8.9) K/mcL BMP 06/06/16 06/07/16 17:49 06:22 Sodium 136 Potassium 3.1 L 3.3 L Chloride 92 L Carbon Dioxide 31 H BUN 51 H Creatinine 1.46 H Glucose 185 H Calcium 9.9 Cardiac Enzymes 06/06/16 06/06/16 Range/Units 13:42 19:47 Troponin I 0.25 H* 0.21 H* (0-0.03) ng/mL Liver Function 06/07/16 Range/Units 06:22 Total Bilirubin 0.6 (0.2-1.2) mg/dL AST 35 H (5-34) Units/L ALT 28 (0-55) Units/L Alkaline Phosphatase 93 (38-126) Units/L Albumin 2.3 L (3.5-5.0) g/dL - ABG Interpretation ABG results: PT/INR, D-dimer PT 14.0 Seconds (9.4-12.1) H 06/05/16 16:47 Consult Discharge Plan - Plan [facility]: [facility] [[facility] Care Provider[facility] - 06/12/16 3:30 pm <Piero Portillo - Last Filed: 06/07/16 15:20> Date of Encounter: 06/07/16 - Assessment and plan (1) Ventricular fibrillation Current Visit: Yes Status: Acute Assessment and plan: Per cardiology (2) Syncope Current Visit: Yes Status: Acute Qualifiers: Syncope type: unspecified Qualified Code(s): R55 - Syncope and collapse (3) Gout attack Current Visit: Yes Status: Acute Qualifiers: Gout site: shoulder Gout etiology: idiopathic Laterality: right Qualified Code(s): M10.011 - Idiopathic gout, right shoulder (4) Diabetes mellitus type 2, insulin dependent Current Visit: No Status: Chronic (5) Hypertension Current Visit: No Status: Chronic Qualifiers: Hypertension type: essential hypertension Qualified Code(s): I10 - Essential (primary) hypertension - Constitutional Vitals: Temp Pulse Resp BP Pulse Ox 97.5 F L 74 16 120/65 96 06/07/16 11:53 06/07/16 11:53 06/07/16 11:53 06/07/16 11:53 06/07/16 11:53 Internal Medicine: Result - Labs CBC & Chem 7: 06/07/16 06:22 06/07/16 06:22 Labs: Short CBC 06/07/16 Range/Units 06:22 WBC 15.7 H (4.3-11.1) K/mcL Hgb 10.7 L (12.9-16.9) g/dL Hct 32.6 L (37.5-50.1) % Plt Count 363 (140-400) K/mcL Neutrophils # 11.4 H (1.6-8.9) K/mcL BMP 06/06/16 06/07/16 17:49 06:22 Sodium 136 Potassium 3.1 L 3.3 L Chloride 92 L Carbon Dioxide 31 H BUN 51 H Creatinine 1.46 H Glucose 185 H Calcium 9.9 Cardiac Enzymes 06/06/16 06/06/16 Range/Units 13:42 19:47 Troponin I 0.25 H* 0.21 H* (0-0.03) ng/mL Liver Function 06/07/16 Range/Units 06:22 Total Bilirubin 0.6 (0.2-1.2) mg/dL AST 35 H (5-34) Units/L ALT 28 (0-55) Units/L Alkaline Phosphatase 93 (38-126) Units/L Albumin 2.3 L (3.5-5.0) g/dL - ABG Interpretation ABG results: PT/INR, D-dimer PT 14.0 Seconds (9.4-12.1) H 06/05/16 16:47 - Attending Attestation I examined this patient and my medical decision-making was reviewed with the Resident Physician on 06/07/16. I agree with the documented findings, disposition and treatment plan as described except to the extent set forth below. Mr. Altman is currently admitted for syncope presumed due to v fib (AICD did not fire), positive blood culture and acute gout attack. He remains moderate to high risk due to potential for worsening infectious or cardiac issues. Mr. Altman is sitting up in chair. He still is very weak and dyspneic with movement. No CP. No fever or chills. Blood cultures repeated today and final ID of first one is not returned yet. R shoulder pain is slightly less today. He is currently on Colchicine. Exam Alert. Comfortable up in chair. Heart irreg Lungs diminished but clear at this time Edema present - R greater than L. I/P 1. Leg edema - R greater. Check duplex to r/o DVT. 2. Syncope - v fib recorded on AICD. On PO amiodarone 3. Hypokalemia 4. Positive blood cx - staph aureus noted. On Vancomycin. Repeat cx today. 5. Gout attack - on colchicine. Further diagnoses and plan as above.
[2016-06-07] MEDS ORDERED: Vancomycin 1,250 MG in D5% in Water 250 ML IVPB SCH (22:00)
[2016-06-07] MEDS: *HR* Rivaroxaban 15 MG TABLET PO SCH (22:45)
[2016-06-07] MEDS: Lacri-Lube 3.5 GM TUBE BOTH EYES SCH (22:47)
[2016-06-07] MEDS: Vancomycin 1,750 MG in D5% in Water 500 ML IVPB SCH (22:55)
[2016-06-08] MEDS: Piperacillin/Tazobactam 3.375 GM in D5% in Water (Mini-Bag+) 100 ML IVPB SCH ×3 (01:09→17:29)
[2016-06-08 06:43] LABS: Basophils # 0.1 K/mcL (0.0-0.2); Basophils % 0.4 %; Eosinophils # 0.5 K/mcL (0.0-0.6); Hemoglobin 10.4 g/dL (12.9-16.9); Immature Granulocytes % 0.9 % (0-4); Lymphocytes # 2.7 K/mcL (0.6-4.6); Lymphocytes % 23.1 %; Mean Corpuscular HGB Conc 32.5 g/dL (31.6-35.5); Mean Corpuscular Volume 89.1 fL (83.0-100.0); Monocytes # 1.5 K/mcL (0.0-1.3); Monocytes % 13.3 %; Neutrophils # 6.7 K/mcL (1.6-8.9); Platelet Count 358 K/mcL (140-400); Red Blood Count 3.59 M/mcL (4.19-5.50); Red Cell Distribution Width 16.2 % (11.5-14.5); Segmented Neutrophils % 58.3 %
[2016-06-08 07:00] LABS: Calcium 9.5 mg/dL (8.6-10.8); Digoxin 0.7 ng/mL (0.8-2.0); Magnesium 1.7 mg/dL (1.6-2.6); Potassium 3.4 mEq/L (3.5-4.5)
[2016-06-08] MEDS: Tiotropium 18 MCG inhalation IH SCH (09:31)
--- NOTE | 2016-06-08 09:31 | Cardiology Progress Note ---
Date of Encounter: 06/08/16 Time of Encounter: 08:50 Assessment and Plan (1) Ventricular fibrillation Current Visit: Yes Status: Acute Device check showed small runs of ventricular fibrillation that did not require shock. He did receive ATP. Started on amiodarone. Known nonischemic cardiomyopathy. EF 30-35%. Monitor electrolytes closely. Replace potassium and magnesium. No recurrent events seen on telemetry. Outpatient follow-up in one to 2 weeks. Cardiology will sign off. Please call with questions. Plan discussed with Dr. Duncan: Continue amiodarone 400 mg BID and carvedilol 6.25 mg BID. F/u in one week with cardiology with device check and consider decreasing amiodarone and increasing carvedilol at that time. Appt will be made by [facility]. (2) Elevated troponin Current Visit: Yes Status: Acute Likely demand ischemia in the setting of AJ/CKD, and PNA. Discussed with Dr. Duncan. No indication for further ischemic workup. TTE was completed. EF 30-35%. Unchanged from previous. TTE 11/2014- EF 25%. He denies chest pain. (3) Positive blood culture Current Visit: Yes Status: Acute One set of blood cultures from peripheral stick was positive for staph aureus. Second set was negative. TTE does not show signs of vegetation. Continue IV antibiotics. No indication for ROSARIO at this time. It he consistently has positive blood cultures consider ROSARIO. (4) Afib Current Visit: Yes Status: Acute History of atrial fibrillation. Currently ventricular paced. He is on Xarelto for anticoagulation. Qualifiers: Atrial fibrillation type: chronic Qualified Code(s): I48.2 - Chronic atrial fibrillation (5) Syncope Current Visit: Yes Status: Acute Secondary to vfib. Started on amiodarone with oral load. Monitor electrolytes. Potassium 3.4, given 40 meq this morning keep at 4.0. Magnesium 1.7, give 2 g of IV magnesium this morning. Keep magnesium 2.0 or above. Qualifiers: Syncope type: unspecified Qualified Code(s): R55 - Syncope and collapse Discussion w patient/family: The assessment and plan as outlined above was discussed with the patient and/or family members who expressed understanding and agreement. All questions were answered. Thank you for involving us in the care of your patient. Please call with any questions. Subjective Principal diagnosis: vfib, syncope, PNA Interval history: No new cardiac complaints overnight. He denies chest pain or shortness of breath. Can complains of lower extremity pain. Currently undergoing venous Dopplers. Objective Vital Signs, Last 4 Hours Temp Pulse Resp BP Pulse Ox 06/08/16 08:00 93 L 06/08/16 07:53 98.2 F 74 16 113/69 93 L General: Conversant, No Apparent Distress HEENT: Atraumatic, Normocephaly, Mucus Membranes Moist Neck: No JVD, Normal carotid pulses Cardiac: Reg Rate and Rhythm, Normal S1 and S2, No Murmur, Other (Ventricular paced on telemetry) Lungs: Normal Breath Sounds, No Wheeze, Rales, Rhonchi Neuro: Alert and responsive, No focal deficits noted Abdomen: Soft, Non-Tender Skin: No rashes noted on visualized skin Musculoskeletal: No Chest Wall Tenderness Extremities: No Clubbing, No Cyanosis, Normal Pulses, Other (Trace edema in bilateral ankles with reddish discoloration) Results 06/08/16 05:52 06/08/16 05:52 Lab Results 06/08/16 06/08/16 05:52 05:52 WBC 11.5 H Hgb 10.4 L Hct 32.0 L Plt Count 358 Sodium 138 Potassium 3.4 L Chloride 94 L Carbon Dioxide 33 H BUN 44 H Creatinine 1.46 H Glucose 116 H Calcium 9.5 Magnesium 1.7 - Imaging and Cardiology Echo: report reviewed (EF 30-35%. Severe global segmental systolic dysfunction. No significant valvular disease.) - EKG Interpretation EKG results cardiology: other (Telemetry review shows ventricular pacing. No irregular rhythms noted.) Consult Discharge Plan - Plan [facility]: [facility] Care Provider[facility] - 06/12/16 3:30 pm
[2016-06-08] MEDS ORDERED: Magnesium Sulfate 2 GM in D5% in Water 100 ML IVPB ONE (09:38)
--- NOTE | 2016-06-08 09:54 | Internal Med Progress Note ---
<UrszulaSingh sweeney - Last Filed: 06/08/16 09:52> Date of Encounter: 06/08/16 Time of Encounter: 09:52 - Assessment and plan (1) Gout attack Current Visit: Yes Status: Acute Assessment and plan: Patient had acute onset right shoulder pain, it was tapped which revealed uric acid crystals. Continue allopurinol and colchicine. Patient states the pain is improving. Qualifiers: Gout site: shoulder Gout etiology: idiopathic Laterality: right Qualified Code(s): M10.011 - Idiopathic gout, right shoulder (2) Syncope Current Visit: Yes Status: Acute Assessment and plan: Likely caused by arrhythmia. Pacer/defibrillator interrogation reveals several episodes of ventricular fibrillation. Patient was started on amiodarone by mouth 400 mg twice a day. Patient did not receive an AICD firing. Cardiology is following the patient and are attempting to obtain complete records on the patient's cardiac history to determine if any adjustments to the patient's pacer /defib settings need to be made. We will replace the patient's electrolytes including potassium and magnesium. No arrhythmias since admission noted. Qualifiers: Syncope type: unspecified Qualified Code(s): R55 - Syncope and collapse (3) Positive blood culture Current Visit: Yes Status: Acute Assessment and plan: Likely contaminant. Patient had one of 2 blood cultures positive for staph aureus with mecA gene. Patient does have a leukocytosis but no other clinical signs of infection. Leukocytosis is much improved today. Leukocytosis could be related to patient's current gout attack. Synovial fluid Gram stain and culture are negative to date. We have repeated blood cultures, we will continue vancomycin until repeat blood cultures returned negative. TTE was performed which showed no evidence of vegetation. If the patient does have persistently positive blood cultures we will obtain a ROSARIO to evaluate for vegetation or infected wire leads. (4) Afib Current Visit: Yes Status: Acute Assessment and plan: Stable. Patient currently has a paced rhythm with rate controlled. Continue anticoagulation with Xarelto Qualifiers: Atrial fibrillation type: chronic Qualified Code(s): I48.2 - Chronic atrial fibrillation (5) IDDM (insulin dependent diabetes mellitus) Current Visit: Yes Status: Chronic Assessment and plan: Blood sugars under better control his morning. Continue current insulin regimen with basal and sliding scale insulin. (6) DVT prophylaxis Current Visit: Yes Status: Acute Assessment and plan: Patient currently on Xarelto - Subjective Interval history: Patient seen and examined at bedside. Patient states he feels pretty good today. States his shoulder pain is improving. Patient denies any chest pain, palpitations, syncopal episodes, dyspnea, fever, chills. - Constitutional Vitals: Temp Pulse Resp BP Pulse Ox 98.2 F 74 16 113/69 93 L 06/08/16 07:53 06/08/16 07:53 06/08/16 07:53 06/08/16 07:53 06/08/16 08:00 General appearance: Present: cooperative, A&O X 3, pleasant, answers questions appropriately - Respiratory Respiratory exam: Present: CTAB. Absent: rales, rhonchi, wheezes - Cardiovascular Cardiovascular exam: Present: RRR. Absent: gallop, rubs, systolic murmur - GI/Abdominal GI/Abdominal exam: Present: soft. Absent: distended, tenderness - Extremities Exam Extremities exam: Present: pedal edema (Trace) Internal Medicine: Result - Labs CBC & Chem 7: 06/08/16 05:52 06/08/16 05:52 Labs: Short CBC 06/08/16 Range/Units 05:52 WBC 11.5 H (4.3-11.1) K/mcL Hgb 10.4 L (12.9-16.9) g/dL Hct 32.0 L (37.5-50.1) % Plt Count 358 (140-400) K/mcL Neutrophils # 6.7 (1.6-8.9) K/mcL BMP 06/08/16 05:52 Sodium 138 Potassium 3.4 L Chloride 94 L Carbon Dioxide 33 H BUN 44 H Creatinine 1.46 H Glucose 116 H Calcium 9.5 - ABG Interpretation ABG results: PT/INR, D-dimer PT 14.0 Seconds (9.4-12.1) H 06/05/16 16:47 Consult Discharge Plan - Plan [facility]errals: [facility] [Primary Care Provider[facility] - 06/12/16 3:30 pm <Piero Portillo - Last Filed: 06/08/16 19:13> Date of Encounter: 06/08/16 - Assessment and plan (1) Ventricular fibrillation Current Visit: Yes Status: Acute (2) Syncope Current Visit: Yes Status: Acute Qualifiers: Syncope type: unspecified Qualified Code(s): R55 - Syncope and collapse (3) Gout attack Current Visit: Yes Status: Acute Qualifiers: Gout site: shoulder Gout etiology: idiopathic Laterality: right Qualified Code(s): M10.011 - Idiopathic gout, right shoulder (4) Diabetes mellitus type 2, insulin dependent Current Visit: No Status: Chronic (5) Positive blood culture Current Visit: Yes Status: Acute (6) Hypertension Current Visit: No Status: Chronic Qualifiers: Hypertension type: essential hypertension Qualified Code(s): I10 - Essential (primary) hypertension (7) CKD (chronic kidney disease) stage 3, GFR 30-59 ml/min Current Visit: Yes Status: Acute (8) Obstructive sleep apnea on CPAP Current Visit: No Status: Chronic - Constitutional Vitals: Temp Pulse Resp BP Pulse Ox 97.8 F 74 18 145/111 96 06/08/16 17:03 06/08/16 17:03 06/08/16 17:03 06/08/16 17:03 06/08/16 17:03 Internal Medicine: Result - Labs CBC & Chem 7: 06/08/16 05:52 06/08/16 05:52 Labs: Short CBC 06/08/16 Range/Units 05:52 WBC 11.5 H (4.3-11.1) K/mcL Hgb 10.4 L (12.9-16.9) g/dL Hct 32.0 L (37.5-50.1) % Plt Count 358 (140-400) K/mcL Neutrophils # 6.7 (1.6-8.9) K/mcL BMP 06/08/16 05:52 Sodium 138 Potassium 3.4 L Chloride 94 L Carbon Dioxide 33 H BUN 44 H Creatinine 1.46 H Glucose 116 H Calcium 9.5 Liver Function 06/08/16 Range/Units 05:52 AST 57 H (5-34) Units/L ALT 43 (0-55) Units/L - ABG Interpretation ABG results: PT/INR, D-dimer PT 14.0 Seconds (9.4-12.1) H 06/05/16 16:47 - Attending Attestation I examined this patient and my medical decision-making was reviewed with the Resident Physician on 06/08/16. I agree with the documented findings, disposition and treatment plan as described except to the extent set forth below. Mr. Altman is currently admitted for syncope related to ventricular fibrillation, acute gout and positive blood cx. He remains moderate to high risk due to potential worsening of cardiac function. Mr. Altman is up in the chair. He is not as dyspneic as before. He is still having a lot of pain when walking and difficulty getting up. Final blood cx results still pending but repeat are negative. Exam Alert. Comfortable Heart reg Lungs diminished I/P 1. V fib 2. Syncope 3. Gout Further diagnoses and plan as above.
[2016-06-08] MEDS: Insulin LISPRO 300 UNITS/3 ML VIAL SQ SCH ×4 (09:55→22:38)
[2016-06-08] MEDS: Artificial Tears SOLN 15 ML BOTTLE BOTH EYES SCH ×4 (09:58→22:40)
[2016-06-08] MEDS: Metoprolol XL (24 HR) Succ 50 MG TAB.ER.24H PO SCH (10:07)
[2016-06-08] MEDS: Insulin DETEMIR 100 UNIT/ML X5UNITS SQ SCH ×2 (10:07→22:39)
[2016-06-08] MEDS: *HR* Amiodarone 200 MG TABLET PO SCH ×2 (10:07→22:40)
[2016-06-08] MEDS: Torsemide 20 MG TABLET PO SCH ×2 (10:08→22:40)
[2016-06-08] MEDS: Aspirin 81 MG TAB.CHEW PO SCH (10:08)
[2016-06-08] MEDS: Colchicine 0.6 MG TABLET PO SCH ×2 (10:08→22:40)
[2016-06-08] MEDS: Cholecalciferol (D-3) 1,000 UNIT TABLET PO SCH (10:08)
[2016-06-08] MEDS: *HR* Digoxin 0.125 MG TABLET PO SCH (10:08)
[2016-06-08] MEDS: Ketotifen Fumarate OP SCH ×2 (10:09→22:41)
[2016-06-08] MEDS: Pregabalin 75 MG CAPSULE PO SCH ×2 (10:09→22:40)
[2016-06-08 10:23] LABS: Thyroid Stimulating Hormone 2.55 mcIU/mL (0.350-4.840)
[2016-06-08] MEDS: *HR* OxyCODONE/APAP 5/325 TABLET PO PRN ×2 (12:32→17:28)
--- NOTE | 2016-06-08 13:37 | Orthopedics Progress Note ---
Date of Encounter: 06/08/16 Time of Encounter: 13:34 - Assessment and Plan (1) Gout attack Current Visit: Yes Status: Acute Continue current medical management for acute gout flareup Patient should follow up with his community living instructor on discharge Qualifiers: Gout site: shoulder Gout etiology: idiopathic Laterality: right Qualified Code(s): M10.011 - Idiopathic gout, right shoulder (2) Right shoulder pain Current Visit: Yes Status: Acute Recommend evaluation from physical therapy to try to improve motion of the entire right upper extremity Qualifiers: Chronicity: acute Qualified Code(s): M25.511 - Pain in right shoulder Subjective Principal diagnosis: vfib, syncope, PNA Interval history: Patient states his right shoulder pain is improved from 3 base ago, but still somewhat painful and has difficulty in removing the shoulder. He has had baseline restricted range of motion of his entire right upper extremity. Objective Vital signs: Vital Signs Temp Pulse Resp BP Pulse Ox 06/08/16 12:00 97.8 F 75 18 126/97 92 L 06/08/16 08:00 93 L 06/08/16 07:53 98.2 F 74 16 113/69 93 L 06/08/16 04:08 97.8 F 74 16 111/66 94 L 06/08/16 00:57 98.4 F 74 18 121/63 94 L 06/07/16 22:40 95 06/07/16 20:11 98.9 F 96 20 121/56 92 L 06/07/16 16:00 97.6 F 75 18 134/75 91 L Intake and Output 06/07/16 06/08/16 06/08/16 23:59 07:59 15:59 Intake Total 100 / 100 100 / 100 344 / 344 Output Total 800 / 800 Balance 100 / 100 -700 / -700 344 / 344 Intake: IV Fluids 100 / 100 100 / 100 104 / 104 Magnesium Sulfate 2 GM In 104 / 104 Dextrose 5% 100 ML @ 100 mls/hr IVPB ONCE ONE Rx# :[id number] Zosyn 3.375 GM In 100 / 100 100 / 100 Dextrose 5% (Minibag+) 100 ML 100 ML @ 25 mls/hr IVPB Q8HR JOHN Rx#: [id number] Oral 0 / 0 0 / 0 240 / 240 Output: Urine 800 / 800 Other: Meal Breakfast Percent of Meal Consumed 65% # Voids 0 0 Weight 115.6 kg Blood Glucose* 171 137 216 Patient Weight 06/08/16 23:59 Weight 115.6 kg Right upper extremity: No erythema, mild swelling, no warmth, limited range of motion her shoulder secondary to pain, no stretching pain with gentle limited range of motion of joint Patient unable to make a full fist which is his baseline The patient's shoulder aspiration showed no growth on his final cultures. Positive uric acid crystals, elevated glucose levels which goes against infection. Incision: clean and dry - Labs CBC & BMP: 06/08/16 05:52 06/08/16 05:52 Labs: Abnormal lab results WBC 11.5 K/mcL (4.3-11.1) H 06/08/16 05:52 RBC 3.59 M/mcL (4.19-5.50) L 06/08/16 05:52 Hgb 10.4 g/dL (12.9-16.9) L 06/08/16 05:52 Hct 32.0 % (37.5-50.1) L 06/08/16 05:52 RDW 16.2 % (11.5-14.5) H 06/08/16 05:52 Monocytes # 1.5 K/mcL (0.0-1.3) H 06/08/16 05:52 ESR >= 130 mm/hr (0-10) H 06/05/16 16:47 PT 14.0 Seconds (9.4-12.1) H 06/05/16 16:47 Potassium 3.4 mEq/L (3.5-4.5) L 06/08/16 05:52 Chloride 94 mEq/L (98-109) L 06/08/16 05:52 Carbon Dioxide 33 mEq/L (19-29) H 06/08/16 05:52 BUN 44 mg/dL (8-26) H 06/08/16 05:52 Creatinine 1.46 mg/dL (0.72-1.25) H 06/08/16 05:52 Est GFR ( Amer) 57 (> 60) L 06/08/16 05:52 Est GFR (Non-Af Amer) 47 (> 60) L 06/08/16 05:52 BUN/Creatinine Ratio 30 (6-26) H 06/08/16 05:52 Glucose 116 mg/dL (70-99) H 06/08/16 05:52 POC Glucose 298 (58-89) H 06/07/16 11:55 Ionized Calcium 1.10 mmol/L (1.15-1.35) L 06/07/16 06:22 AST 57 Units/L (5-34) H 06/08/16 05:52 Troponin I 0.21 ng/mL (0-0.03) H* 06/06/16 19:47 Albumin 2.3 g/dL (3.5-5.0) L 06/07/16 06:22 Globulin 5.5 g/dL (2.4-3.5) H 06/07/16 06:22 Albumin/Globulin Ratio 0.4 (1.1-2.2) L 06/07/16 06:22 Triglycerides 219 mg/dL (< 150) H 06/06/16 05:18 VLDL Cholesterol, Calc 44 mg/dL (< 31) H 06/06/16 05:18 HDL Cholesterol 16 mg/dL (40-59) L 06/06/16 05:18 Cholesterol/HDL Ratio 9.8 (0-4.9) H 06/06/16 05:18 Urine Protein 100 mg/dL (Neg-Trace) H 06/05/16 18:23 Urine Blood Trace (Negative) H 06/05/16 18:23 Urine Microscopic RBC 3-5 per hpf (0-3) H 06/05/16 18:23 Ur Squamous Epith Cells Many per lpf (None-Few) H 06/05/16 18:23 Vancomycin Trough 9.1 mcg/mL (10-20) L 06/07/16 21:26 Digoxin 0.7 ng/mL (0.8-2.0) L 06/08/16 05:52 Consult Discharge Plan - Plan [facility]errals: [facility]Primary Care Provider[facility] - 06/12/16 3:30 pm
[2016-06-08] MEDS: *HR* Rivaroxaban 15 MG TABLET PO SCH (17:28)
[2016-06-08] MEDS: Vancomycin 1,750 MG in D5% in Water 500 ML IVPB SCH (22:39)
[2016-06-08] MEDS: Lacri-Lube 3.5 GM TUBE BOTH EYES SCH (22:41)
[2016-06-09] MEDS: Piperacillin/Tazobactam 3.375 GM in D5% in Water (Mini-Bag+) 100 ML IVPB SCH ×3 (01:42→18:34)
[2016-06-09 06:05] LABS: Basophils # 0.1 K/mcL (0.0-0.2); Basophils % 0.7 %; Eosinophils # 0.4 K/mcL (0.0-0.6); Eosinophils % 4.5 %; Hematocrit 33.3 % (37.5-50.1); Hemoglobin 10.9 g/dL (12.9-16.9); Immature Granulocytes % 1.1 % (0-4); Lymphocytes # 2.1 K/mcL (0.6-4.6); Lymphocytes % 23.2 %; Mean Corpuscular HGB Conc 32.7 g/dL (31.6-35.5); Mean Corpuscular Hemoglobin 29.1 pg (28.0-33.3); Mean Corpuscular Volume 88.8 fL (83.0-100.0); Mean Platelet Volume 10.9 fL (9.4-12.4); Monocytes # 1.2 K/mcL (0.0-1.3); Monocytes % 12.6 %; Neutrophils # 5.3 K/mcL (1.6-8.9); Platelet Count 384 K/mcL (140-400); Red Blood Count 3.75 M/mcL (4.19-5.50); Segmented Neutrophils % 57.9 %
[2016-06-09 06:18] LABS: Calcium 9.3 mg/dL (8.6-10.8); Magnesium 1.5 mg/dL (1.6-2.6); Potassium 3.5 mEq/L (3.5-4.5)
[2016-06-09] MEDS: *HR* OxyCODONE/APAP 5/325 TABLET PO PRN (06:29)
--- NOTE | 2016-06-09 07:28 | Orthopedics Progress Note ---
Date of Encounter: 06/09/16 Time of Encounter: 07:24 - Assessment and Plan (1) Right shoulder pain Current Visit: Yes Status: Acute Qualifiers: Chronicity: acute Qualified Code(s): M25.511 - Pain in right shoulder Subjective Principal diagnosis: vfib, syncope, PNA Interval history: S: Right shoulder pain significantly improved. Mild right elbow pain, also improved. No general complaints. O: Afeb, VSS; Improved motion to the right shoulder and elbow. Stiffness to the right shoulder, especially with abduction which does cause pain. NV intact distally grossly. Final cultures negative from shoulder aspirate. A: Gouty arthritis of the right shoulder, improved with colchicine. Probable right sided radial head fracture. P: No plans for surgical intervention. Motion as tolerated to the right shoulder and elbow. Sling for comfort. Would limit weightbearing to that which can be tolerated. Follow up with me in 1 week for a new radiographic evaluation of the right elbow. Objective Vital signs: Vital Signs Temp Pulse Resp BP Pulse Ox 06/09/16 07:00 97.4 F L 75 16 128/75 93 L 06/09/16 03:14 97.5 F L 75 20 104/72 93 L 06/09/16 00:33 97.6 F 77 18 132/83 97 06/08/16 22:30 96 06/08/16 21:11 98.5 F 74 18 139/89 96 06/08/16 17:03 97.8 F 74 18 145/111 96 06/08/16 12:00 97.8 F 75 18 126/97 92 L 06/08/16 08:00 93 L 06/08/16 07:53 98.2 F 74 16 113/69 93 L Intake and Output 06/08/16 06/08/16 06/09/16 15:59 23:59 07:59 Intake Total 684 / 684 240 / 240 200 / 200 Output Total 400 / 400 1275 / 1275 Balance 684 / 684 -160 / -160 -1075 / -1075 Intake: IV Fluids 204 / 204 0 / 0 Magnesium Sulfate 2 GM In 104 / 104 Dextrose 5% 100 ML @ 100 mls/hr IVPB ONCE ONE Rx# :[id number] Zosyn 3.375 GM In 100 / 100 0 / 0 Dextrose 5% (Minibag+) 100 ML 100 ML @ 25 mls/hr IVPB Q8HR JOHN Rx#: [id number] Oral 480 / 480 240 / 240 200 / 200 Output: Urine 400 / 400 1275 / 1275 Other: Meal Lunch Dinner Percent of Meal Consumed 100% 75% Weight 116.5 kg Blood Glucose* 216 209 176 Patient Weight 06/09/16 23:59 Weight 116.5 kg - Labs CBC & BMP: 06/09/16 05:28 06/09/16 05:28 Labs: Abnormal lab results RBC 3.75 M/mcL (4.19-5.50) L 06/09/16 05:28 Hgb 10.9 g/dL (12.9-16.9) L 06/09/16 05:28 Hct 33.3 % (37.5-50.1) L 06/09/16 05:28 RDW 16.0 % (11.5-14.5) H 06/09/16 05:28 ESR >= 130 mm/hr (0-10) H 06/05/16 16:47 PT 14.0 Seconds (9.4-12.1) H 06/05/16 16:47 Chloride 95 mEq/L (98-109) L 06/09/16 05:28 Carbon Dioxide 32 mEq/L (19-29) H 06/09/16 05:28 BUN 42 mg/dL (8-26) H 06/09/16 05:28 Creatinine 1.51 mg/dL (0.72-1.25) H 06/09/16 05:28 Est GFR ( Amer) 55 (> 60) L 06/09/16 05:28 Est GFR (Non-Af Amer) 45 (> 60) L 06/09/16 05:28 BUN/Creatinine Ratio 28 (6-26) H 06/09/16 05:28 Glucose 182 mg/dL (70-99) H 06/09/16 05:28 POC Glucose 209 (58-89) H 06/08/16 21:24 Calculated Osmolality 301 (280-300) H 06/09/16 05:28 Ionized Calcium 1.10 mmol/L (1.15-1.35) L 06/07/16 06:22 Magnesium 1.5 mg/dL (1.6-2.6) L 06/09/16 05:28 AST 57 Units/L (5-34) H 06/08/16 05:52 Troponin I 0.21 ng/mL (0-0.03) H* 06/06/16 19:47 Albumin 2.3 g/dL (3.5-5.0) L 06/07/16 06:22 Globulin 5.5 g/dL (2.4-3.5) H 06/07/16 06:22 Albumin/Globulin Ratio 0.4 (1.1-2.2) L 06/07/16 06:22 Triglycerides 219 mg/dL (< 150) H 06/06/16 05:18 VLDL Cholesterol, Calc 44 mg/dL (< 31) H 06/06/16 05:18 HDL Cholesterol 16 mg/dL (40-59) L 06/06/16 05:18 Cholesterol/HDL Ratio 9.8 (0-4.9) H 06/06/16 05:18 Urine Protein 100 mg/dL (Neg-Trace) H 06/05/16 18:23 Urine Blood Trace (Negative) H 06/05/16 18:23 Urine Microscopic RBC 3-5 per hpf (0-3) H 06/05/16 18:23 Ur Squamous Epith Cells Many per lpf (None-Few) H 06/05/16 18:23 Vancomycin Trough 9.1 mcg/mL (10-20) L 06/07/16 21:26 Digoxin 0.7 ng/mL (0.8-2.0) L 06/08/16 05:52 Consult Discharge Plan - Plan [facility]errals: [facility] [Primary Care Provider[facility] - 06/12/16 3:30 pm
[2016-06-09] MEDS ORDERED: Magnesium Sulfate 1 GM in D5% in Water 100 ML IVPB ONE (07:47)
[2016-06-09] MEDS: Tiotropium 18 MCG inhalation IH SCH ×2 (08:35→10:14)
[2016-06-09 09:00] LABS: Acinetobacter baumannii by PCR Not Detected (Not Detect); Candida albicans by PCR Not Detected (Not Detect); Candida glabrata by PCR Not Detected (Not Detect); Candida krusei by PCR Not Detected (Not Detect); Candida parapsilosis by PCR Not Detected (Not Detect); Candida tropicalis by PCR Not Detected (Not Detect); Enterococcus by PCR Not Detected (Not Detect); Escherichia coli by PCR Not Detected (Not Detect); Klebsiella oxytoca by PCR Not Detected (Not Detect); Klebsiella pneumoniae by PCR Not Detected (Not Detect); Pseudomonas aeruginosa by PCR Not Detected (Not Detect); Serratia marcescens by PCR Not Detected (Not Detect); Staphylococcus aureus by PCR Not Detected (Not Detect); Streptococcus agalactiae(B)PCR Not Detected (Not Detect); Streptococcus by PCR Not Detected (Not Detect); Streptococcus pneumoniae PCR Not Detected (Not Detect); Streptococcus pyogenes (A) PCR Not Detected (Not Detect); mecA Methicillin-Resist Gene ***DETECTED*** (Not Detect)
[2016-06-09] MEDS: Insulin LISPRO 300 UNITS/3 ML VIAL SQ SCH ×4 (09:42→21:56)
[2016-06-09] MEDS: Colchicine 0.6 MG TABLET PO SCH (09:43)
[2016-06-09] MEDS: *HR* Amiodarone 200 MG TABLET PO SCH ×2 (09:43→21:55)
[2016-06-09] MEDS: Aspirin 81 MG TAB.CHEW PO SCH (09:43)
[2016-06-09] MEDS: Cholecalciferol (D-3) 1,000 UNIT TABLET PO SCH (09:44)
[2016-06-09] MEDS: Pregabalin 75 MG CAPSULE PO SCH ×2 (09:44→21:55)
[2016-06-09] MEDS: Torsemide 20 MG TABLET PO SCH ×2 (09:44→21:55)
[2016-06-09] MEDS: Metoprolol XL (24 HR) Succ 50 MG TAB.ER.24H PO SCH (09:44)
[2016-06-09] MEDS: *HR* Digoxin 0.125 MG TABLET PO SCH (09:44)
--- NOTE | 2016-06-09 09:49 | Venous Imaging Report ---
LE Venous Duplex Patient Name:Quinn Altman Order Number:[id number] Procedure Date:06/08/2016 Date:1940ge:76 yrs Gender:Male Location:[facility] Room #: 2NE19 Watch Repair Technician:GIO AlcantaraT Referring MD:Piero Portillo DO warp placer:[facility] Reading MD:Sean Orr MD , FACS Primary Indications:edema bilateral lower extremities, Right greater than Left Secondary Indications: Risk Factors Yes/No Hx of DVT No Hx of Chemotherapy No Impressions: Bilateral lower extremity: normal superficial and deep exam. Findings Venous Duplex Results: Right: Venous imaging of the lower extremity reveals full patency and normal vessel compressibility of the right distal iliac, right common femoral, right superficial femoral, right popliteal, right posterior tibial, right peroneal, right great saphenous and right lesser saphenous. Doppler signals in the evaluated veins were normal. Left: Venous imaging of the lower extremity reveals full patency and normal vessel compressibility of the left distal iliac, left common femoral, left superficial femoral, left popliteal, left posterior tibial, left peroneal, left great saphenous and left lesser saphenous. Doppler signals in the evaluated veins were normal. Prior Study: No prior study available for comparison. Lower Extremity Venous Duplex Side Vein Compress Spontaneous Flow Augment Diameter (cm) Depth (cm) Right Distal Iliac Normal Yes Phasic Yes Right Common Femoral Normal Yes Phasic Yes Right Superficial Femoral Normal Yes Phasic Yes Right Popliteal Normal Yes Phasic Yes Right Posterior Tibial Normal Yes Phasic Yes Right Peroneal Normal Yes Phasic Yes Right Great Saphenous Normal Yes Phasic Yes Right Lesser Saphenous Normal Yes Phasic Yes Left Distal Iliac Normal Yes Phasic Yes Left Common Femoral Normal Yes Phasic Yes Left Superficial Femoral Normal Yes Phasic Yes Left Popliteal Normal Yes Phasic Yes Left Posterior Tibial Normal Yes Phasic Yes Left Peroneal Normal Yes Phasic Yes Left Great Saphenous Normal Yes Phasic Yes Left Lesser Saphenous Normal Yes Phasic Yes Updated by Sean Orr MD, FACS on 06/09/2016 9:41:46 AM Sean Orr MD electronically signed on 06/09/2016 9:42:17 AM with status of Final
[2016-06-09] MEDS: Insulin DETEMIR 100 UNIT/ML X5UNITS SQ SCH ×2 (09:50→21:55)
[2016-06-09] MEDS: Artificial Tears SOLN 15 ML BOTTLE BOTH EYES SCH ×4 (09:54→21:55)
--- NOTE | 2016-06-09 10:15 | Discharge Summary ---
<Vira Castro - Last Filed: 06/09/16 17:23> Date of Encounter: 06/09/16 Time of Encounter: 09:00 - Discharge Diagnosis (1) Right shoulder pain Priority: Primary Status: Acute Qualifiers: Chronicity: acute Qualified Code(s): M25.511 - Pain in right shoulder (2) Syncope Priority: Secondary Status: Acute Qualifiers: Syncope type: unspecified Qualified Code(s): R55 - Syncope and collapse (3) IDDM (insulin dependent diabetes mellitus) Priority: Secondary Status: Chronic (4) Elevated troponin Priority: Secondary Status: Acute (5) Afib Priority: Secondary Status: Acute Qualifiers: Atrial fibrillation type: chronic Qualified Code(s): I48.2 - Chronic atrial fibrillation (6) DVT prophylaxis Priority: Secondary Status: Acute - Discharge Medications Prescriptions: OxyCODONE/APAP 5/325 [Percocet 5/325 MG] 1 each PO Q4HR PRN #12 tablet PRN Reason: severe pain Amiodarone [Cordarone] 400 mg PO BID #60 tablet Carvedilol [Coreg] 6.25 mg PO BIDWM #60 tablet Home Medications: Aspirin 1 mg PO DAILY 11/13/14 [History] Digoxin [Lanoxin] 0.125 mg PO DAILY 11/13/14 [History] Losartan [Cozaar] 25 mg PO DAILY 11/13/14 [History] Nitroglycerin [Nitrostat] 0.4 mg SL Q5M PRN 11/13/14 [History] [place]-3 Fatty Acids [[place]-3] 2,000 mg PO BID 11/13/14 [History] Potassium Chloride 10 meq PO DAILY 11/13/14 [History] Rivaroxaban [Xarelto] 15 mg PO DAILY 11/13/14 [History] Spironolactone 25 mg PO DAILY 11/13/14 [History] Terazosin HCl 1 mg PO HS 11/13/14 [History] Tiotropium [Spiriva] 18 mcg IH DAILY 11/13/14 [History] Acetaminophen [Tylenol] 650 mg PO TID PRN 06/05/16 [History] Albuterol Sulfate [Albuterol Inhaler] 2 puff IH Q6H PRN 06/05/16 [History] Allopurinol [Zyloprim 100 MG] 100 mg PO DAILY 06/05/16 [History] Calcium Citrate 400 mg PO DAILY 06/05/16 [History] Carboxymethylcellulose Sodium [Refresh Liquigel] 1 drop BOTH EYES QID 06/05/16 [ History] Cholecalciferol (D-3) [Vitamin D] 2,000 unit PO DAILY 06/05/16 [History] Cyclobenzaprine [Flexeril] 10 mg PO TID PRN 06/05/16 [History] Dextrose [Glucose] 4 gm PO AD PRN 06/05/16 [History] Diclofenac Sodium [Voltaren] 2 gm TP BID PRN 06/05/16 [History] Ergocalciferol (VITAMIN D2) [Vitamin D2] 50,000 unit PO QWEEK 06/05/16 [History] Etanercept [Enbrel] 50 mg SQ QWEEK 06/05/16 [History] Eucerin Creme 1 appl TP DAILY 06/05/16 [History] Hydroxychloroquine [Plaquenuil] 200 mg PO BID 06/05/16 [History] Insulin ASPART [NovoLOG] 25 unit SQ TIDWM 06/05/16 [History] Insulin Glargine,Hum.rec.anlog [Lantus Solostar] 55 unit SQ BID 06/05/16 [ History] Ketotifen Fumarate 1 drop BOTH EYES BID 06/05/16 [History] Lidocaine 4% CRM (LMX) [Lmx 4] 1 appl TP BID PRN 06/05/16 [History] Metformin HCl [Fortamet] 1,000 mg PO QPM 06/05/16 [History] Metolazone [Zaroxolyn] 2.5 mg PO 3XW 06/05/16 [History] Mineral Oil/Petrolatum,White [Refresh P.m. Ointment] 1 appl BOTH EYES HS [History] Olodaterol HCl [Striverdi Respimat] 2 puff IH DAILY 06/05/16 [History] Omeprazole [PriLOSEC] 20 mg PO DAILY 06/05/16 [History] Pregabalin [Lyrica] 75 mg PO BID 06/05/16 [History] Probenecid [Benemid] 500 mg PO BID 06/05/16 [History] Simvastatin [Zocor] 10 mg PO QPM 06/05/16 [History] Torsemide [Demadex] 40 mg PO BID 06/05/16 [History] Amiodarone [Cordarone] 400 mg PO BID #60 tablet 06/09/16 [Rx] Carvedilol [Coreg] 6.25 mg PO BIDWM #60 tablet 06/09/16 [Rx] OxyCODONE/APAP 5/325 [Percocet 5/325 MG] 1 each PO Q4HR PRN #12 tablet 06/09/16 [Rx] Allergies/Adverse Reactions: Allergies codeine Adverse Reaction (Unknown, Verified 08/23/15 10:10) See Comments unknown reaction atorvastatin [From Lipitor] Adverse Reaction (Verified 06/05/16 16:47) See Comments [facility] list lisinopril Adverse Reaction (Verified 08/23/15 10:10) Cough pravastatin Adverse Reaction (Verified 06/05/16 16:47) See Comments [facility] list rosuvastatin [From Crestor] Adverse Reaction (Verified 08/23/15 10:10) See Comments causes kidney stones Procedures/tests Complete & Pending: Procedures Performed prior 72 hours Category Date Time Status EV venous imaging LE BI Routine Y 06/08/16 14:06 Completed Date of admission: 06/06/16 01:17 [facility] care physician: [facility] Consults: 06/06/16 11:31 Consult to Occupational Therapy [CONS] Routine Comment: Evaluate, develop and implement POC Consult to Physical Therapy [CONS] Routine Comment: Evaluate, develop and implement POC 06/08/16 09:51 Consult to Accounts Receivable Clerk [CONS] Routine Reason for SW Consult: Possible placement, PT recommend inpatient rehab/ swing bed 06/08/16 13:45 Consult to Physical Therapy [CONS] Routine Comment: Evaluate, develop and implement POC - Patient Status Disposition: Transfer Inpatient Rehab Fac Condition: Fair Overall status at discharge: patient is progressing back to baseline - Discharge Instructions Instructions: Oxycodone/Acetaminophen (By mouth), Amiodarone (By mouth), Carvedilol (By mouth), Heart Failure (DC), Atrial Fibrillation (DC), Acute Kidney Injury (DC), Acute Kidney Injury (GEN), Syncope (DC), Diabetes Mellitus Type 2 in Adults (DC), Chronic Hypertension (DC), Acute Kidney Injury, Mast Maker (GEN) Follow Up With: [facility] [Primary Care Provider] - 06/12/16 3:30 pm Guido Kaur CNP [Advanced Practice Nurse] - Tesfaye Perales MD [Partnered Physician] - - Diet and Activity Activity: as per physical therapy Diet: diabetic diet, low fat, low cholesterol Hospital course: Mr. Altman is a 76 year old male with PMHx of Afib, CHF, COPD, DM, HLD, HTN, [place]. He came as a transfer from the [place] urgent care with CC of right shoulder pain and a syncopal event. CT right humerus showed elbow effusion with a suspected small nondisplaced radial fracture with moderate to severe acromioclavicular and glenohumeral degenerative changes. venous duplex of the right upper extremity showed no clots. Orthopedic surgery was consulted, and stated that there is low suspicion for septic arthropathy. There were uric acid crystals in the joint fluid analysis so the patient was started on colchicine and his home med allopurinol was continued. and wa splaced on vanc and zosyn. Blood cultures came back with coagulase negative staph a. Cardiology was consulted for the syncopal event, and patient's echo showed LVEF 30-35%, no pulmonary hypertension, diastolic dysfunction, severe global segmentla left ventricular systolic dysfunciton. They did a device check of his pacemaker, which showed small runs of Vfib that did not require shock. Cardiology started patient on amiodarone and carvedilol with outpatient follow up in 2 weeks. Patient was ready for discharge on 06/09 when he developed multiple episodes of profuse diarrhea. He was kept in the hospital for monitoring and C.Diff toxin was ordered. He was prophylactically started on flagyl. - Time Spent with Patient Total time spent providing and/or coordinating discharge services: - Constitutional Vitals: Temp Pulse Resp BP Pulse Ox 97.4 F L 75 16 128/75 93 L 06/09/16 07:00 06/09/16 07:00 06/09/16 07:00 06/09/16 07:00 06/09/16 07:00 General appearance: Present: cooperative, A&O X 3, pleasant, answers questions appropriately - Head Head exam: Present: atraumatic, normocephalic - Neck Neck exam general surgery: Present: supple, trachea midline - Respiratory Additional comments: left sided rhonchi present. - Cardiovascular Additional comments: paced rhythm. pacemaker present on chest - GI/Abdominal GI/Abdominal exam: Present: normal bowel sounds, soft. Absent: distended, tenderness - Extremities Exam Additional comments: range of motion of right shoulder was better than previously. no cyanosis, edema, or clubbing present. Lower extremity had dry skin and was slightly erythematous. - Neurological Exam Neurological exam: Present: alert, oriented X3, no focal deficits <Piero Portillo - Last Filed: 06/09/16 18:37> Date of Encounter: 06/09/16 - Discharge Diagnosis (1) Ventricular fibrillation Priority: Primary Status: Acute (2) Syncope Priority: Secondary Status: Acute Qualifiers: Syncope type: unspecified Qualified Code(s): R55 - Syncope and collapse (3) Gout attack Priority: Primary Status: Acute Qualifiers: Gout site: shoulder Gout etiology: idiopathic Laterality: right Qualified Code(s): M10.011 - Idiopathic gout, right shoulder (4) Chronic systolic (congestive) heart failure Priority: Secondary Status: Chronic Comments: Not on ANGELIKA/ARB due to renal function. (5) Diabetes mellitus type 2, insulin dependent Priority: Secondary Status: Chronic (6) Hypertension Priority: Secondary Status: Chronic Qualifiers: Hypertension type: essential hypertension Qualified Code(s): I10 - Essential (primary) hypertension (7) CKD (chronic kidney disease) stage 3, GFR 30-59 ml/min Priority: Secondary Status: Acute (8) Obstructive sleep apnea on CPAP Priority: Secondary Status: Chronic Procedures/tests Complete & Pending: Procedures Performed prior 72 hours Category Date Time Status EV venous imaging LE BI Routine Y 06/08/16 14:06 Completed Date of admission: 06/06/16 01:17 Primary care physician: [facility] Consults: 06/06/16 11:31 Consult to Occupational Therapy [CONS] Routine Comment: Evaluate, develop and implement POC Consult to Physical Therapy [CONS] Routine Comment: Evaluate, develop and implement POC 06/08/16 09:51 Consult to Accounts Receivable Clerk [CONS] Routine Reason for SW Consult: Possible placement, PT recommend inpatient rehab/ swing bed 06/08/16 13:45 Consult to Physical Therapy [CONS] Routine Comment: Evaluate, develop and implement POC Hospital course: Mr. Altmna is a 76 year old male - Time Spent with Patient Total time spent providing and/or coordinating discharge services: 37min - Constitutional Vitals: Temp Pulse Resp BP Pulse Ox 97.4 F L 75 16 123/79 93 L 06/09/16 15:00 06/09/16 15:00 06/09/16 15:00 06/09/16 15:00 06/09/16 15:00 - Attending Attestation I examined this patient and my medical decision-making was reviewed with the Resident Physician on 06/09/16. I agree with the documented findings, disposition and treatment plan as described except to the extent set forth below. Mr. Altman is feeling OK but needs rehab. He still feels very weak. No further syncope. Pain is controlled at this time. Exam Alert. Comfortable Heart reg Lungs no wheeze Plan D/C to swing bed today Follow up with PCP Stop colchicine at discharge
[2016-06-09] MEDS: Ketotifen Fumarate OP SCH ×2 (11:13→21:56)
--- NOTE | 2016-06-09 13:22 | Physician Discharge Referral ---
ExtendedCare Referral Info Transfer To: [facility] Provider in Charge after Transfer: PCP Institutional Level of Care: Skilled - Diagnosis (1) Right shoulder pain Priority: Primary Status: Acute (2) Syncope Priority: Secondary Status: Acute (3) IDDM (insulin dependent diabetes mellitus) Priority: Secondary Status: Chronic (4) Elevated troponin Priority: Secondary Status: Acute (5) Afib Priority: Secondary Status: Acute (6) DVT prophylaxis Priority: Secondary Status: Acute - Transfer Medications Prescriptions: OxyCODONE/APAP 5/325 [Percocet 5/325 MG] 1 each PO Q4HR PRN #12 tablet PRN Reason: severe pain Amiodarone [Cordarone] 400 mg PO BID #60 tablet Carvedilol [Coreg] 6.25 mg PO BIDWM #60 tablet Home Medications: Aspirin 1 mg PO DAILY 11/13/14 [History] Digoxin [Lanoxin] 0.125 mg PO DAILY 11/13/14 [History] Losartan [Cozaar] 25 mg PO DAILY 11/13/14 [History] Nitroglycerin [Nitrostat] 0.4 mg SL Q5M PRN 11/13/14 [History] [place]-3 Fatty Acids [[place]-3] 2,000 mg PO BID 11/13/14 [History] Potassium Chloride 10 meq PO DAILY 11/13/14 [History] Rivaroxaban [Xarelto] 15 mg PO DAILY 11/13/14 [History] Spironolactone 25 mg PO DAILY 11/13/14 [History] Terazosin HCl 1 mg PO HS 11/13/14 [History] Tiotropium [Spiriva] 18 mcg IH DAILY 11/13/14 [History] Acetaminophen [Tylenol] 650 mg PO TID PRN 06/05/16 [History] Albuterol Sulfate [Albuterol Inhaler] 2 puff IH Q6H PRN 06/05/16 [History] Allopurinol [Zyloprim 100 MG] 100 mg PO DAILY 06/05/16 [History] Calcium Citrate 400 mg PO DAILY 06/05/16 [History] Carboxymethylcellulose Sodium [Refresh Liquigel] 1 drop BOTH EYES QID 06/05/16 [ History] Cholecalciferol (D-3) [Vitamin D] 2,000 unit PO DAILY 06/05/16 [History] Cyclobenzaprine [Flexeril] 10 mg PO TID PRN 06/05/16 [History] Dextrose [Glucose] 4 gm PO AD PRN 06/05/16 [History] Diclofenac Sodium [Voltaren] 2 gm TP BID PRN 06/05/16 [History] Ergocalciferol (VITAMIN D2) [Vitamin D2] 50,000 unit PO QWEEK 06/05/16 [History] Etanercept [Enbrel] 50 mg SQ QWEEK 06/05/16 [History] Eucerin Creme 1 appl TP DAILY 06/05/16 [History] Hydroxychloroquine [Plaquenuil] 200 mg PO BID 06/05/16 [History] Insulin ASPART [NovoLOG] 25 unit SQ TIDWM 06/05/16 [History] Insulin Glargine,Hum.rec.anlog [Lantus Solostar] 55 unit SQ BID 06/05/16 [ History] Ketotifen Fumarate 1 drop BOTH EYES BID 06/05/16 [History] Lidocaine 4% CRM (LMX) [Lmx 4] 1 appl TP BID PRN 06/05/16 [History] Metformin HCl [Fortamet] 1,000 mg PO QPM 06/05/16 [History] Metolazone [Zaroxolyn] 2.5 mg PO 3XW 06/05/16 [History] Mineral Oil/Petrolatum,White [Refresh P.m. Ointment] 1 appl BOTH EYES HS [History] Olodaterol HCl [Striverdi Respimat] 2 puff IH DAILY 06/05/16 [History] Omeprazole [PriLOSEC] 20 mg PO DAILY 06/05/16 [History] Pregabalin [Lyrica] 75 mg PO BID 06/05/16 [History] Probenecid [Benemid] 500 mg PO BID 06/05/16 [History] Simvastatin [Zocor] 10 mg PO QPM 06/05/16 [History] Torsemide [Demadex] 40 mg PO BID 06/05/16 [History] Amiodarone [Cordarone] 400 mg PO BID #60 tablet 06/09/16 [Rx] Carvedilol [Coreg] 6.25 mg PO BIDWM #60 tablet 06/09/16 [Rx] OxyCODONE/APAP 5/325 [Percocet 5/325 MG] 1 each PO Q4HR PRN #12 tablet 06/09/16 [Rx] Allergies/Adverse Reactions: Allergies codeine Adverse Reaction (Unknown, Verified 08/23/15 10:10) See Comments unknown reaction atorvastatin [From Lipitor] Adverse Reaction (Verified 06/05/16 16:47) See Comments va list lisinopril Adverse Reaction (Verified 08/23/15 10:10) Cough pravastatin Adverse Reaction (Verified 06/05/16 16:47) See Comments va list rosuvastatin [From Crestor] Adverse Reaction (Verified 08/23/15 10:10) See Comments causes kidney stones - Respiratory Orders Smoking Cessation: Smoking cessation has been advised. For more information, call the [place] Tobacco Quit Line at 9-556-LGSE-NOW. - Ancillary Orders May use pressure relief devices daily prn - Mobility Orders Ambulate - Rehabiliation Orders Rehab Potential: Fair - Diet Orders Cardiac (cardiac and diabetic diet.) CERTIFICATION: I certify that the transfer of the above named patient to an Extended Care Facility is necessary for the continuing treatment of the diagnosis listed. The above information is true and accurate reflection of patient's current condition. Confidential - Redisclosure prohibited without a patient's written consent.
--- NOTE | 2016-06-09 15:52 | Event Note ---
<Vira Castro - Last Filed: 06/09/16 15:51> Date of Encounter: 06/09/16 Time of Encounter: 15:00 Patient had been discharged with order in place. Later this afternoon around 1530, patient had about 5-6 episodes of profuse diarrhea. He will be kept in the hospital overnight and will start flagyl with C.Diff PCR pending. <Piero Portillo - Last Filed: 06/09/16 18:42> Date of Encounter: 06/09/16 Significant diarrhea. Zosyn and colchicine stopped. Hold d/c and send C diff.
[2016-06-09] MEDS ORDERED: MetroNIDAZOLE 500 MG/100 ML 500 MG/100 ML BAG IVPB SCH (16:00)
[2016-06-09] MEDS: *HR* Rivaroxaban 15 MG TABLET PO SCH (18:35)
[2016-06-09] MEDS: Lacri-Lube 3.5 GM TUBE BOTH EYES SCH (21:55)
[2016-06-10] MEDS: *HR* OxyCODONE/APAP 5/325 TABLET PO PRN ×2 (00:06→08:59)
[2016-06-10 06:16] LABS: Ionized Calcium 1.13 mmol/L (1.15-1.35)
[2016-06-10 06:23] LABS: Basophils % 0.4 %; Eosinophils # 0.4 K/mcL (0.0-0.6); Eosinophils % 4.2 %; Hematocrit 35.5 % (37.5-50.1); Hemoglobin 11.6 g/dL (12.9-16.9); Lymphocytes # 3.2 K/mcL (0.6-4.6); Lymphocytes % 31.3 %; Mean Corpuscular HGB Conc 32.7 g/dL (31.6-35.5); Mean Corpuscular Hemoglobin 28.9 pg (28.0-33.3); Mean Corpuscular Volume 88.3 fL (83.0-100.0); Mean Platelet Volume 10.7 fL (9.4-12.4); Monocytes % 9.6 %; Neutrophils # 5.4 K/mcL (1.6-8.9); Platelet Count 455 K/mcL (140-400); Red Blood Count 4.02 M/mcL (4.19-5.50); Red Cell Distribution Width 15.8 % (11.5-14.5); Segmented Neutrophils % 53.5 %
[2016-06-10 06:25] LABS: BUN/Creatinine Ratio 24 (6-26); Blood Urea Nitrogen 32 mg/dL (8-26); Calcium 9.6 mg/dL (8.6-10.8); Carbon Dioxide 31 mEq/L (19-29); Chloride 99 mEq/L (98-109); Glucose 89 mg/dL (70-99); Magnesium 1.4 mg/dL (1.6-2.6); Osmolality,Calculated 298 (280-300); Phosphorous 2.9 mg/dL (2.3-4.7); Potassium 3.4 mEq/L (3.5-4.5); Sodium 141 mEq/L (136-145); eGFR For African Americans > 60 (> 60); eGFR For Non-African Americans 53 (> 60)
[2016-06-10] MEDS ORDERED: Potassium Chloride Elixir 20 MEQ/15 ML UDC PO ONE (08:52)
[2016-06-10] MEDS ORDERED: Magnesium Sulfate 2 GM in D5% in Water 100 ML IVPB ONE (08:52)
[2016-06-10] MEDS: Insulin DETEMIR 100 UNIT/ML X5UNITS SQ SCH (08:57)
[2016-06-10] MEDS: Torsemide 20 MG TABLET PO SCH (08:58)
[2016-06-10] MEDS: Metoprolol XL (24 HR) Succ 50 MG TAB.ER.24H PO SCH (08:58)
[2016-06-10] MEDS: Cholecalciferol (D-3) 1,000 UNIT TABLET PO SCH (08:58)
[2016-06-10] MEDS: Aspirin 81 MG TAB.CHEW PO SCH (08:58)
[2016-06-10] MEDS: *HR* Digoxin 0.125 MG TABLET PO SCH (08:58)
[2016-06-10] MEDS: Pregabalin 75 MG CAPSULE PO SCH (08:58)
[2016-06-10] MEDS: *HR* Amiodarone 200 MG TABLET PO SCH (08:58)
[2016-06-10] MEDS: Insulin LISPRO 300 UNITS/3 ML VIAL SQ SCH ×2 (08:59→13:24)
[2016-06-10] MEDS: Artificial Tears SOLN 15 ML BOTTLE BOTH EYES SCH ×2 (08:59→13:25)
[2016-06-10] MEDS: Ketotifen Fumarate OP SCH (08:59)
--- NOTE | 2016-06-10 09:02 | Internal Med Progress Note ---
Date of Encounter: 06/10/16 Time of Encounter: 09:01 - Assessment and plan (1) Ventricular fibrillation Current Visit: Yes Status: Acute Assessment and plan: Patient was admitted with syncope and right shoulder pain. Treated for acute gouty attack with PO Colchicine with improvement. Cardiology was consulted and patient was noted to yuliana sanchez with no shocking on ICD interrogation and has been started on PO Amiodarone per Cardiology. Developed diarrhea and c.diff toxin was negative. Patient is stable today and can be discharged to rehab facility today for inpatient rehab, with PRN Loperamide. (2) Syncope Current Visit: Yes Status: Acute Qualifiers: Syncope type: unspecified Qualified Code(s): R55 - Syncope and collapse (3) Right shoulder pain Current Visit: Yes Status: Acute Qualifiers: Chronicity: acute Qualified Code(s): M25.511 - Pain in right shoulder (4) Afib Current Visit: Yes Status: Acute Qualifiers: Atrial fibrillation type: chronic Qualified Code(s): I48.2 - Chronic atrial fibrillation (5) CKD (chronic kidney disease) stage 3, GFR 30-59 ml/min Current Visit: Yes Status: Acute (6) Gout attack Current Visit: Yes Status: Acute Qualifiers: Gout site: shoulder Gout etiology: idiopathic Laterality: right Qualified Code(s): M10.011 - Idiopathic gout, right shoulder - Subjective Interval history: Feels okay but still has loose watery bowel movements; no abdominal pain, nausea , vomiting; reports some right elbow pain; - Constitutional Vitals: Temp Pulse Resp BP Pulse Ox 97.8 F 75 16 153/79 97 06/10/16 07:11 06/10/16 07:11 06/10/16 07:11 06/10/16 07:11 06/10/16 07:11 General appearance: Present: cooperative, A&O X 3, pleasant, answers questions appropriately - Respiratory Respiratory exam: Present: CTAB. Absent: accessory muscle use, rales, rhonchi, wheezes - Cardiovascular Cardiovascular exam: Present: RRR, +S1, +S2. Absent: diastolic murmur, gallop, rubs, systolic murmur Internal Medicine: Result - Labs CBC & Chem 7: 06/10/16 05:31 06/10/16 05:31 Labs: Short CBC 06/10/16 Range/Units 05:31 WBC 10.1 (4.3-11.1) K/mcL Hgb 11.6 L (12.9-16.9) g/dL Hct 35.5 L (37.5-50.1) % Plt Count 455 H (140-400) K/mcL Neutrophils # 5.4 (1.6-8.9) K/mcL BMP 06/10/16 05:31 Sodium 141 Potassium 3.4 L Chloride 99 Carbon Dioxide 31 H BUN 32 H D Creatinine 1.31 H Glucose 89 Calcium 9.6 - ABG Interpretation ABG results: PT/INR, D-dimer PT 14.0 Seconds (9.4-12.1) H 06/05/16 16:47 Consult Discharge Plan - Plan Instructions: Oxycodone/Acetaminophen (By mouth), Amiodarone (By mouth), Carvedilol (By mouth), Heart Failure (DC), Atrial Fibrillation (DC), Acute Kidney Injury (DC), Acute Kidney Injury (GEN), Syncope (DC), Diabetes Mellitus Type 2 in Adults (DC), Chronic Hypertension (DC), Acute Kidney Injury, Network Systems Engineer (GEN) Referrals: Guido Kaur CNP [Advanced Practice Nurse] - (faxed info to the [facility] they will call you with appointment) [facility],PCP [Primary Care Provider] - Tesfaye Perales MD [Partnered Physician] - (faxed info to [facility] they will call you with appointment) Prescriptions: OxyCODONE/APAP 5/325 [Percocet 5/325 MG] 1 each PO Q4HR PRN #12 tablet PRN Reason: severe pain Amiodarone [Cordarone] 400 mg PO BID #60 tablet Carvedilol [Coreg] 6.25 mg PO BIDWM #60 tablet
[2016-06-10] MEDS: Tiotropium 18 MCG inhalation IH SCH (10:59)
[2016-06-10 11:13] VITALS: BP 129/85
[2016-06-10] MEDS ORDERED: Aminoglycoside Consult 1 EACH MC ONE (18:00)
== END 2016-06-10 18:01 | DRG 308 ==
LOC: 2NENU 15:25 → EMEROO 15:25 → 2NENU 22:02 → SUATTDRO 06-06 01:17
PROVIDERS: ADMIT Internal Medicine; ATTEND Internal Medicine

== ENCOUNTER 2017-07-24 19:05 | Inpatient (IN) ==
--- NOTE | 2017-07-24 19:23 | Emergency Department Note ---
Disposition Clinical Impression: Heart failure, HCAP (healthcare-associated pneumonia), Acute on chronic combined systolic and diastolic heart failure, Syncope, Cardiac defibrillator in place Disposition: Admitted As Inpatient Condition: Fair [facility] - Forms: ED Satisfaction Letter SOB HPI - General Chief Complaint: ED Shortness of Breath/Dyspnea Stated Complaint: SOB Time Seen by Provider: 07/24/17 19:11 Source: patient Mode of arrival: wheelchair Limitations: no limitations Nursing Notes Reviewed: Yes Vital Signs Reviewed: Yes - History of Present Illness Patient presents to the ED with the chief complaint of dyspnea. Patient has a history of A. fib, anticoagulated on Xarelto and also has a history of CHF. He was recently admitted to the hospital and discharged just a few days ago for a CHF exacerbation. He said he went home and about 2 days ago started feeling short of breath again. He states that this is different than his COPD or CHF exacerbation. States he has no energy and he is having fairly significant exertional dyspnea. He also has a loss of appetite and persistent nausea. He denies any chest pain or heaviness. He does have a defibrillator and his daughter states that when he was trying to get into the car today, he passed out and she thinks his defibrillator may have gone off. He denies any fever or chills, chest pain, abdominal pain, vomiting, diarrhea, melena, hematochezia. He does complain of progressive pain and swelling in his legs and hands. - Related Data Home Medications Medication Instructions Recorded Confirmed Aspirin 162 mg PO DAILY 11/13/14 07/24/17 Nitroglycerin [Nitrostat] 0.4 mg SL Q5M PRN 11/13/14 07/24/17 [place]-3 Fatty Acids [[place]-3] 2,000 mg PO BID 11/13/14 07/24/17 Potassium Chloride 20 meq PO DAILY 11/13/14 07/24/17 Rivaroxaban [Xarelto] 15 mg PO DAILY 11/13/14 07/24/17 Spironolactone 25 mg PO DAILY 11/13/14 07/24/17 Terazosin HCl 1 mg PO HS 11/13/14 07/24/17 Tiotropium [Spiriva] 18 mcg IH DAILY 11/13/14 07/24/17 Acetaminophen [Tylenol] 650 mg PO TID PRN 06/05/16 07/24/17 Albuterol Sulfate [Albuterol 2 puff IH Q6H PRN 06/05/16 07/24/17 Inhaler] Cholecalciferol (D-3) [Vitamin D] 2,000 unit PO DAILY 06/05/16 07/24/17 Diclofenac Sodium [Voltaren] 2 gm TP Q12H 06/05/16 07/24/17 Eucerin Creme 1 appl TP DAILY 06/05/16 07/24/17 Hydroxychloroquine [Plaquenuil] 200 mg PO BID 06/05/16 07/24/17 Insulin ASPART [NovoLOG] 20 unit SQ BID 06/05/16 07/24/17 Insulin Glargine,Hum.rec.anlog 70 unit SQ BID 06/05/16 07/24/17 [Lantus Solostar] Lidocaine 4% CRM (LMX) [Lmx 4] 1 appl TP BID PRN 06/05/16 07/24/17 Mineral Oil/Petrolatum,White 1 appl BOTH EYES HS 06/05/16 07/24/17 [Refresh P.m. Ointment] Omeprazole [PriLOSEC] 20 mg PO BID 06/05/16 07/24/17 Pregabalin [Lyrica] 75 mg PO TID 06/05/16 07/24/17 Simvastatin [Zocor] 10 mg PO QPM 06/05/16 07/24/17 Torsemide [Demadex] 20 mg PO BID 06/05/16 07/24/17 metOLazone [Zaroxolyn] 2.5 mg PO DAILY 06/05/16 07/24/17 Allopurinol [Zyloprim] 300 mg PO DAILY 07/24/17 07/24/17 Budesonide/Formoterol 160/4.5 2 puff IH BIDR 07/24/17 07/24/17 [Symbicort 160/4.5] Colchicine [Colcrys] 0.6 mg PO DAILY 07/24/17 07/24/17 Insulin ASPART [NovoLOG] 30 unit SQ QPM 07/24/17 07/24/17 Levothyroxine [Synthroid] 12.5 mcg PO QAM 07/24/17 07/24/17 Melatonin [Melatin] 9 mg PO HS 07/24/17 07/24/17 OxyCODONE Immed Rel [Roxicodone 5 5 mg PO Q6H PRN 07/24/17 07/24/17 MG] Previous Rx's Medication Instructions Recorded Carvedilol [Coreg] 6.25 mg PO BIDWM #60 tablet 06/09/16 Allergies Allergy/AdvReac Type Severity Reaction Status Date / Time codeine AdvReac Unknown See Verified 08/23/15 10:10 Comments atorvastatin [From Lipitor] AdvReac See Verified 06/05/16 16:47 Comments lisinopril AdvReac Cough Verified 08/23/15 10:10 pravastatin AdvReac See Verified 06/05/16 16:47 Comments rosuvastatin [From Crestor] AdvReac See Verified 08/23/15 10:10 Comments Review of Systems: As reviewed in the HPI. All other systems reviewed are negative or normal. Constitutional: Reports: as per HPI Eyes: Reports: as per HPI ENT ED: Reports: as per HPI Past Medical History - Past Medical History Attestation: Yes The following information was validated with the patient. Source: patient, old records reviewed Medical history: Reports: arthritis, atrial fibrillation, CHF, COPD, diabetes, hyperlipidemia, hypertension, myocardial infarction, RA, syncope Surgical history: Reports: pacemaker/AICD, other Psychiatric history: Reports: no psych history - Social History Smoking Status: Former smoker Smokeless Tobacco Status: No Alcohol use: Reports: none Drug use: Reports: none Physical Exam - General Limitations: no limitations General appearance: alert, in no apparent distress - Head Head exam: atraumatic, normocephalic, normal inspection, other (Growth to the left forehead and baptism) - Eye Eye exam: Present: normal appearance, PERRL, EOMI - ENT ENT exam: normal exam, normal oropharynx, mucous membranes moist - Neck Neck exam: Present: normal inspection, full ROM, trachea midline - Chest Chest inspection: Present: normal inspection, symmetric chest wall rise - Respiratory Respiratory exam: Present: other (Decreased breath sounds bilaterally). Absent : normal lung sounds bilaterally, respiratory distress - Cardiovascular Cardiovascular exam: Present: regular rate, normal heart sounds - Abdominal Exam Abdominal exam: Present: soft, Non-Tender, distention (Obese and at baseline) - Extremities Exam Extremities exam: Present: full ROM, pedal edema. Absent: normal inspection, tenderness - Neurological Exam Neurological exam: Present: alert, oriented X3 - Psychiatric Psychiatric exam: Present: normal affect, normal mood - Skin Skin exam: Present: warm, dry, intact, normal color Course Course Narrative: Patient presenting with dyspnea. Was recently discharged from the hospital for a CHF exacerbation. States that his shortness of breath feels different. He has not had any infectious symptoms or cough, but we will check a lactic acid, amongst his other labs. We will get a chest x-ray. Patient will likely be admitted. - Reevaluation(s) Reevaluation #1: Patient does appear to have a right lower lobe pneumonia, elevated white count. No pulmonary edema. We will treat as he Due to his recent admission. We reviewed [facility], and he was not admitted here, but was admitted at another facility. Due to his renal function. We will place him on linezolid instead of vancomycin. Also Zosyn and Levaquin. Vital Signs Temperature 98.1 F 07/24/17 19:16 Pulse Rate 75 07/24/17 19:16 Respiratory Rate 16 07/24/17 19:16 Blood Pressure 147/75 07/24/17 19:16 O2 Sat by Pulse Oximetry 94 07/24/17 19:16 Temperature 98.1 F 07/24/17 19:16 Pulse Rate 82 07/24/17 21:18 Respiratory Rate 16 07/24/17 21:18 Blood Pressure 138/82 07/24/17 21:18 O2 Sat by Pulse Oximetry 95 07/24/17 21:18 Oxygen Delivery Oxygen Delivery Nasal Cannula Shortness of Breath/Dyspnea - Medical Records Medical records reviewed: Yes I reviewed the patient's medical records. - Lab Data Lab results reviewed: Yes I reviewed the patient's lab results. Result diagrams: 07/24/17 19:38 07/24/17 19:38 Lab Results 07/24/17 07/24/17 07/24/17 Range/Units 19:38 19:38 19:38 WBC 14.9 H (4.3-11.1) K/mcL RBC 3.99 L (4.19-5.50) M/mcL Hgb 9.5 L (12.9-16.9) g/dL Hct 31.2 L (37.5-50.1) % MCV 78.2 L (83.0-100.0) fL MCH 23.8 L (28.0-33.3) pg MCHC 30.4 L (31.6-35.5) g/dL RDW 18.7 H (11.5-14.5) % Plt Count 335 (140-400) K/mcL MPV 10.5 (9.4-12.4) fL Immature Gran % 1.0 (0-4) % Seg Neutrophils % 76.1 % Lymphocytes % 13.2 % Monocytes % 8.0 % Eosinophils % 1.5 % Basophils % 0.2 % Neutrophils # 11.4 H (1.6-8.9) K/mcL Lymphocytes # 2.0 (0.6-4.6) K/mcL Monocytes # 1.2 (0.0-1.3) K/mcL Eosinophils # 0.2 (0.0-0.6) K/mcL Basophils # 0.0 (0.0-0.2) K/mcL Nucleated RBCs/100 WBC 0.1 H (0) /100 WBC Sodium 130 L (136-145) mEq/L Potassium 3.2 L (3.5-5.1) mEq/L Chloride 84 L (98-107) mEq/L Carbon Dioxide 34 H (23-29) mEq/L BUN 69 H (8-23) mg/dL Creatinine 1.74 H (0.70-1.30) mg/dL Est GFR ( Amer) 46 L (> 60) Est GFR (Non-Af Amer) 38 L (> 60) BUN/Creatinine Ratio 40 H (6-26) Glucose 443 H (70-105) mg/dL Calculated Osmolality 309 H (280-300) Lactic Acid 2.1 (0.5-2.2) mmol/L Calcium 9.4 (8.6-10.3) mg/dL Phosphorus 3.6 (2.7-4.5) mg/dL Magnesium 1.7 (1.6-2.6) mg/dL Total Bilirubin 0.5 (0.3-1.0) mg/dL Direct Bilirubin 0.1 (0.0-0.2) mg/dL Indirect Bilirubin 0.4 (0.0-1.2) mg/dL AST 21 (13-39) Units/L ALT 21 (7-52) Units/L Alkaline Phosphatase 74 (34-104) Units/L Troponin I 0.04 H* (< 0.04) ng/mL B-Natriuretic Peptide (Less than 100) pg/mL Serum Total Protein 7.0 (6.4-8.9) g/dL Albumin 3.9 (3.5-5.7) g/dL Globulin 3.1 (2.4-3.5) g/dL Albumin/Globulin Ratio 1.3 (1.1-2.2) Lipase 31 (11-82) Units/L Urine Color (Yellow) Urine Clarity (Clear) Urine pH (5.0-8.0) pH Units Ur Specific [place] (1.010-1.025) Urine Protein (Neg-Trace) mg/dL Urine Glucose (UA) (Normal) mg/dL Urine Ketones (Negative) mg/dL Urine Blood (Negative) Urine Nitrite (Negative) Urine Bilirubin (Negative) Urine Urobilinogen (Normal) mg/dL Ur Leukocyte Esterase (Negative) Ur Culture Indicated? (NO) 07/24/17 07/24/17 Range/Units 19:38 19:49 WBC (4.3-11.1) K/mcL RBC (4.19-5.50) M/mcL Hgb (12.9-16.9) g/dL Hct (37.5-50.1) % MCV (83.0-100.0) fL MCH (28.0-33.3) pg MCHC (31.6-35.5) g/dL RDW (11.5-14.5) % Plt Count (140-400) K/mcL MPV (9.4-12.4) fL Immature Gran % (0-4) % Seg Neutrophils % % Lymphocytes % % Monocytes % % Eosinophils % % Basophils % % Neutrophils # (1.6-8.9) K/mcL Lymphocytes # (0.6-4.6) K/mcL Monocytes # (0.0-1.3) K/mcL Eosinophils # (0.0-0.6) K/mcL Basophils # (0.0-0.2) K/mcL Nucleated RBCs/100 WBC (0) /100 WBC Sodium (136-145) mEq/L Potassium (3.5-5.1) mEq/L Chloride (98-107) mEq/L Carbon Dioxide (23-29) mEq/L BUN (8-23) mg/dL Creatinine (0.70-1.30) mg/dL Est GFR ( Amer) (> 60) Est GFR (Non-Af Amer) (> 60) BUN/Creatinine Ratio (6-26) Glucose (70-105) mg/dL Calculated Osmolality (280-300) Lactic Acid (0.5-2.2) mmol/L Calcium (8.6-10.3) mg/dL Phosphorus (2.7-4.5) mg/dL Magnesium (1.6-2.6) mg/dL Total Bilirubin (0.3-1.0) mg/dL Direct Bilirubin (0.0-0.2) mg/dL Indirect Bilirubin (0.0-1.2) mg/dL AST (13-39) Units/L ALT (7-52) Units/L Alkaline Phosphatase (34-104) Units/L Troponin I (< 0.04) ng/mL B-Natriuretic Peptide 111 H (Less than 100) pg/mL Serum Total Protein (6.4-8.9) g/dL Albumin (3.5-5.7) g/dL Globulin (2.4-3.5) g/dL Albumin/Globulin Ratio (1.1-2.2) Lipase (11-82) Units/L Urine Color Yellow (Yellow) Urine Clarity Clear (Clear) Urine pH 7.0 (5.0-8.0) pH Units Ur Specific [place] 1.012 (1.010-1.025) Urine Protein Negative (Neg-Trace) mg/dL Urine Glucose (UA) 250 H (Normal) mg/dL Urine Ketones Negative (Negative) mg/dL Urine Blood Negative (Negative) Urine Nitrite Negative (Negative) Urine Bilirubin Negative (Negative) Urine Urobilinogen Normal (Normal) mg/dL Ur Leukocyte Esterase Negative (Negative) Ur Culture Indicated? NO (NO) - Radiology Data Radiology results reviewed: Yes I reviewed the patient's radiology results. - EKG Data EKG attestation: Yes I reviewed and interpreted this EKG. EKG results narrative: Based rhythm, rate 75, QRS 196, QTC 512, no acute ischemic changes
[2017-07-24 19:52] LABS: Basophils % 0.2 %; Eosinophils # 0.2 K/mcL (0.0-0.6); Eosinophils % 1.5 %; Hematocrit 31.2 % (37.5-50.1); Hemoglobin 9.5 g/dL (12.9-16.9); Lymphocytes % 13.2 %; Mean Corpuscular HGB Conc 30.4 g/dL (31.6-35.5); Mean Corpuscular Hemoglobin 23.8 pg (28.0-33.3); Mean Corpuscular Volume 78.2 fL (83.0-100.0); Mean Platelet Volume 10.5 fL (9.4-12.4); Monocytes # 1.2 K/mcL (0.0-1.3); Neutrophils # 11.4 K/mcL (1.6-8.9); Nucleated Red Blood Cells 0.1 /100 WBC (0); Platelet Count 335 K/mcL (140-400); Red Blood Count 3.99 M/mcL (4.19-5.50); Red Cell Distribution Width 18.7 % (11.5-14.5); Segmented Neutrophils % 76.1 %
--- NOTE | 2017-07-24 19:52 | Emergency Department Note ---
Disposition Clinical Impression: Heart failure Disposition: Still a Patient Condition: Fair [facility]: [facility] [Primary Care Provider[facility] - Forms: ED Satisfaction Letter General Adult HPI - General Chief complaint: ED Shortness of Breath/Dyspnea Stated complaint: SOB Time Seen by Provider: 07/24/17 19:11 Source: patient Mode of arrival: wheelchair Limitations: no limitations - History of Present Illness Pain Scale: 3 - Related Data Home Medications Medication Instructions Recorded Confirmed Aspirin 1 mg PO DAILY 11/13/14 06/10/16 Digoxin [Lanoxin] 0.125 mg PO DAILY 11/13/14 06/10/16 Losartan [Cozaar] 25 mg PO DAILY 11/13/14 06/10/16 Nitroglycerin [Nitrostat] 0.4 mg SL Q5M PRN 11/13/14 06/10/16 [place]-3 Fatty Acids [[place]-3] 2,000 mg PO BID 11/13/14 06/10/16 Potassium Chloride 10 meq PO DAILY 11/13/14 06/10/16 Rivaroxaban [Xarelto] 15 mg PO DAILY 11/13/14 06/10/16 Spironolactone 25 mg PO DAILY 11/13/14 06/10/16 Terazosin HCl 1 mg PO HS 11/13/14 06/10/16 Tiotropium [Spiriva] 18 mcg IH DAILY 11/13/14 06/10/16 Acetaminophen [Tylenol] 650 mg PO TID PRN 06/05/16 06/10/16 Albuterol Sulfate [Albuterol 2 puff IH Q6H PRN 06/05/16 06/10/16 Inhaler] Allopurinol [Zyloprim 100 MG] 100 mg PO DAILY 06/05/16 06/10/16 Calcium Citrate 400 mg PO DAILY 06/05/16 06/10/16 Carboxymethylcellulose Sodium 1 drop BOTH EYES QID PRN 06/05/16 06/10/16 [Refresh Liquigel] Cholecalciferol (D-3) [Vitamin D] 2,000 unit PO DAILY 06/05/16 06/10/16 Cyclobenzaprine [Flexeril] 10 mg PO TID PRN 06/05/16 06/10/16 Dextrose [Glucose] 4 gm PO AD PRN 06/05/16 06/10/16 Diclofenac Sodium [Voltaren] 2 gm TP BID PRN 06/05/16 06/10/16 Ergocalciferol (VITAMIN D2) 50,000 unit PO QWEEK 06/05/16 06/10/16 [Vitamin D2] Etanercept [Enbrel Sureclick] 50 mg SQ QWEEK 06/05/16 06/10/16 Eucerin Creme 1 appl TP DAILY PRN 06/05/16 06/10/16 Hydroxychloroquine [Plaquenuil] 200 mg PO BID 06/05/16 06/10/16 Insulin ASPART [NovoLOG] 25 unit SQ TIDWM 06/05/16 06/10/16 Insulin Glargine,Hum.rec.anlog 55 unit SQ BID 06/05/16 06/10/16 [Lantus Solostar] Ketotifen Fumarate 1 drop BOTH EYES BID PRN 06/05/16 06/10/16 Lidocaine 4% CRM (LMX) [Lmx 4] 1 appl TP BID PRN 06/05/16 06/10/16 Metformin HCl [Fortamet] 1,000 mg PO QPM 06/05/16 06/10/16 Mineral Oil/Petrolatum,White 1 appl BOTH EYES HS PRN 06/05/16 06/10/16 [Refresh P.m. Ointment] Olodaterol HCl [[place] Respimat] 2 puff IH DAILY 06/05/16 06/10/16 Omeprazole [PriLOSEC] 20 mg PO DAILY 06/05/16 06/10/16 Pregabalin [Lyrica] 75 mg PO BID 06/05/16 06/10/16 Probenecid [Benemid] 500 mg PO BID 06/05/16 06/10/16 Simvastatin [Zocor] 10 mg PO QPM 06/05/16 06/10/16 Torsemide [Demadex] 40 mg PO BID 06/05/16 06/10/16 metOLazone [Zaroxolyn] 2.5 mg PO 3XW 06/05/16 06/10/16 Previous Rx's Medication Instructions Recorded Amiodarone [Cordarone] 400 mg PO BID #60 tablet 06/09/16 Carvedilol [Coreg] 6.25 mg PO BIDWM #60 tablet 06/09/16 OxyCODONE/APAP 5/325 [Percocet 1 each PO Q4HR PRN #12 tablet 06/09/16 5/325 MG] Allergies Allergy/AdvReac Type Severity Reaction Status Date / Time codeine AdvReac Unknown See Verified 08/23/15 10:10 Comments atorvastatin [From Lipitor] AdvReac See Verified 06/05/16 16:47 Comments lisinopril AdvReac Cough Verified 08/23/15 10:10 pravastatin AdvReac See Verified 06/05/16 16:47 Comments rosuvastatin [From Crestor] AdvReac See Verified 08/23/15 10:10 Comments Constitutional: Reports: as per HPI Eyes: Reports: as per HPI ENT ED: Reports: as per HPI Past Medical History - Past Medical History Medical history: Reports: arthritis, atrial fibrillation, CHF, COPD, diabetes, hyperlipidemia, hypertension, myocardial infarction, RA, syncope Surgical history: Reports: pacemaker/AICD, other Psychiatric history: Reports: no psych history - Social History Smoking Status: Former smoker Smokeless Tobacco Status: No Alcohol use: Reports: none Drug use: Reports: none Physical Exam - General Limitations: no limitations General appearance: alert, in no apparent distress Course Vital Signs Temperature 98.1 F 07/24/17 19:16 Pulse Rate 75 07/24/17 19:16 Respiratory Rate 16 07/24/17 19:16 Blood Pressure 147/75 07/24/17 19:16 O2 Sat by Pulse Oximetry 94 07/24/17 19:16 Temperature 98.1 F 07/24/17 19:16 Pulse Rate 75 07/24/17 19:16 Respiratory Rate 16 07/24/17 19:16 Blood Pressure 147/75 07/24/17 19:16 O2 Sat by Pulse Oximetry 94 07/24/17 19:16 Oxygen Delivery Oxygen Delivery Nasal Cannula Medical Decision Making - Lab Data Result diagrams: 07/24/17 19:38 Lab Results 07/24/17 Range/Units 19:38 WBC 14.9 H (4.3-11.1) K/mcL RBC 3.99 L (4.19-5.50) M/mcL Hgb 9.5 L (12.9-16.9) g/dL Hct 31.2 L (37.5-50.1) % MCV 78.2 L (83.0-100.0) fL MCH 23.8 L (28.0-33.3) pg MCHC 30.4 L (31.6-35.5) g/dL RDW 18.7 H (11.5-14.5) % Plt Count 335 (140-400) K/mcL MPV 10.5 (9.4-12.4) fL Immature Gran % 1.0 (0-4) % Seg Neutrophils % 76.1 % Lymphocytes % 13.2 % Monocytes % 8.0 % Eosinophils % 1.5 % Basophils % 0.2 % Neutrophils # 11.4 H (1.6-8.9) K/mcL Lymphocytes # 2.0 (0.6-4.6) K/mcL Monocytes # 1.2 (0.0-1.3) K/mcL Eosinophils # 0.2 (0.0-0.6) K/mcL Basophils # 0.0 (0.0-0.2) K/mcL Nucleated RBCs/100 WBC 0.1 H (0) /100 WBC Attestation Statement - Attestation Attestation: I examined this patient and my medical decision-making was reviewed with the STATION ATTENDANT/PA/Advanced Practice Nurse/Resident Physician. I agree with the documented findings, disposition and treatment plan as described except to the extent set forth below. I did see the patient is spoke with him and examined him. He does have shortness of breath which is worse the last several days which is worse with exertion and he does have orthopnea and peripheral edema. He is not sure about weight gain. Denies any chest pain tightness or discomfort or pressure. He did not have any pain in the head, neck, chest, abdomen or back. He did have a syncopal episode and he denies any unilateral numbness or weakness of the extremities, slurred speech, facial droop or lesion. Patient will be admitted. Concern for possible arrhythmia which was improved with his AICD. Testing in progress. I did review the EKG showing a paced rhythm. 1950
[2017-07-24 20:01] LABS: Bilirubin,Urine Negative (Negative); Blood,Urine Negative (Negative); Clarity,Urine Clear (Clear); Color,Urine Yellow (Yellow); Glucose,Urine (UA) 250 mg/dL (Normal); Ketones,Urine Negative (Negative); Leukocyte Esterase,Urine Negative (Negative); Nitrite,Urine Negative (Negative); Protein,Urine Negative (Neg-Trace); Specific Gravity,Urine 1.012 (1.010-1.025); Urobilinogen,Urine Normal (Normal)
[2017-07-24 20:13] LABS: Albumin 3.9 g/dL (3.5-5.7); Albumin/Globulin Ratio 1.3 (1.1-2.2); Bilirubin,Direct 0.1 mg/dL (0.0-0.2); Bilirubin,Indirect 0.4 mg/dL (0.0-1.2); Bilirubin,Total 0.5 mg/dL (0.3-1.0); Calcium 9.4 mg/dL (8.6-10.3); Globulin 3.1 g/dL (2.4-3.5); Magnesium 1.7 mg/dL (1.6-2.6); Phosphorous 3.6 mg/dL (2.7-4.5); Potassium 3.2 mEq/L (3.5-5.1)
[2017-07-24] MEDS ORDERED: levoFLOXacin 750 MG TABLET PO ONE (20:13)
[2017-07-24] MEDS ORDERED: Piperacillin/Tazobactam 3.375 GM in 0.9 % Sodium Chloride Mini Bag 100 ML IVPB ONE (20:13)
[2017-07-24 20:15] LABS: Troponin I 0.04 ng/mL (< 0.04)
[2017-07-24] MEDS ORDERED: Naloxone 0.4 MG/ML INJ IVP PRN (21:53)
[2017-07-24] MEDS ORDERED: Acetaminophen 325 MG TABLET PO PRN (21:53)
[2017-07-24] MEDS ORDERED: Lidocaine 4% CREAM (LMX) 5 GM TP PRN (21:59)
[2017-07-24] MEDS ORDERED: Nitroglycerin 0.4 MG TAB.SUBL SL PRN (21:59)
[2017-07-24] MEDS ORDERED: D5% in Water 1,000 ML IVC PRN (22:09)
[2017-07-24] MEDS ORDERED: Dextrose Gel 15 GM/37.5 ML TUBE PO PRN ×2 (22:09)
[2017-07-24] MEDS ORDERED: *HR* Dextrose 50 % in Water (Syg) 50 ML SYRINGE IVP PRN (22:09)
[2017-07-24] MEDS ORDERED: Insulin DETEMIR 100 UNIT/ML X5UNITS SQ SCH (22:15)
[2017-07-24] MEDS: Budesonide/Formoterol 160/4.5 MDI IH SCH (23:31)
[2017-07-25] MEDS: *HR* OxyCODONE Immed Rel 5 MG TABLET PO PRN ×2 (02:04→21:18)
--- NOTE | 2017-07-25 02:43 | Internal Med History&Physical ---
Date of Encounter: 07/24/17 Time of Encounter: 20:00 Internal Medicine - H&P: HPI Chief complaint: Shortness of breath and syncope Admitted From: Home Plans for Post Hospital Care: Home History of present illness: Mr. Altman is a 77 year old male presented to ER for shortness of breath since yesterday and syncope today. His past medical history is significant for systolic CHF, diabetes, COPD, CKD. Patient started to have shortness of breath since yesterday. He has cough, which is productive. Patient denies fever, chest pain, or nausea. Today, patient passed out and almost fell (held by his daughter), syncope lasted about 1 minute. No seizure, no urinary or fecal incontinence. Patient's daughter suspected AICD malfunction. In the emergency room, chest x-ray shows right lower lobe increased density. Patient has leukocytosis. Patient was treated as HCAP because of recent hospitalization one month ago. Patient also admitted for syncope. I have discussed with patient regarding CODE STATUS. He clearly told me he does not want CPR or intubation, DNR/DNI placed Past Med Surg Social Fam HX - Past Medical History Medical history: arthritis, atrial fibrillation, CHF, COPD, diabetes, hyperlipidemia, hypertension, myocardial infarction, RA, syncope Psychiatric history: no psych history - Past Surgical History Surgical History: pacemaker/AICD, other - Social History Smoking Status: Former smoker Smokeless Tobacco Status: No Alcohol use: none Drug use: none - Family History Mother Adopted: No Family Member Ethnicity: Non- Living Status: Hx Family Cardiac Disorders: No (unknown) Hx Family Respiratory Disorders: No (unknown) Hx Family Cancer: No (unknown) Hx Family GI Disorders: No (unknown) Hx Family Endocrine Disorder: No (unknown) Hx Family Neuromuscular Disorders: No (unknown) Hx Family Neurologic Disorders: No (unknown) Hx Family HEENT Disorders: No (unknown) Hx Family Autoimmune Disorders: No (unknown) Internal Medicine - H&P: Meds Aspirin 162 mg PO DAILY 11/13/14 [History] Nitroglycerin [Nitrostat] 0.4 mg SL Q5M PRN 11/13/14 [History] Enterprise-3 Fatty Acids [Enterprise-3] 2,000 mg PO BID 11/13/14 [History] Potassium Chloride 20 meq PO DAILY 11/13/14 [History] Rivaroxaban [Xarelto] 15 mg PO DAILY 11/13/14 [History] Spironolactone 25 mg PO DAILY 11/13/14 [History] Terazosin HCl 1 mg PO HS 11/13/14 [History] Tiotropium [Spiriva] 18 mcg IH DAILY 11/13/14 [History] Acetaminophen [Tylenol] 650 mg PO TID PRN 06/05/16 [History] Albuterol Sulfate [Albuterol Inhaler] 2 puff IH Q6H PRN 06/05/16 [History] Cholecalciferol (D-3) [Vitamin D] 2,000 unit PO DAILY 06/05/16 [History] Diclofenac Sodium [Voltaren] 2 gm TP Q12H 06/05/16 [History] Eucerin Creme 1 appl TP DAILY 06/05/16 [History] Hydroxychloroquine [Plaquenuil] 200 mg PO BID 06/05/16 [History] Insulin ASPART [NovoLOG] 20 unit SQ BID 06/05/16 [History] Insulin Glargine,Hum.rec.anlog [Lantus Solostar] 70 unit SQ BID 06/05/16 [ History] Lidocaine 4% CRM (LMX) [Lmx 4] 1 appl TP BID PRN 06/05/16 [History] Mineral Oil/Petrolatum,White [Refresh P.m. Ointment] 1 appl BOTH EYES HS [History] Omeprazole [PriLOSEC] 20 mg PO BID 06/05/16 [History] Pregabalin [Lyrica] 75 mg PO TID 06/05/16 [History] Simvastatin [Zocor] 10 mg PO QPM 06/05/16 [History] Torsemide [Demadex] 20 mg PO BID 06/05/16 [History] metOLazone [Zaroxolyn] 2.5 mg PO DAILY 06/05/16 [History] Carvedilol [Coreg] 6.25 mg PO BIDWM #60 tablet 06/09/16 [Rx] Allopurinol [Zyloprim] 300 mg PO DAILY 07/24/17 [History] Budesonide/Formoterol 160/4.5 [Symbicort 160/4.5] 2 puff IH BIDR 07/24/17 [ History] Colchicine [Colcrys] 0.6 mg PO DAILY 07/24/17 [History] Insulin ASPART [NovoLOG] 30 unit SQ QPM 07/24/17 [History] Levothyroxine [Synthroid] 12.5 mcg PO QAM 07/24/17 [History] Melatonin [Melatin] 9 mg PO HS 07/24/17 [History] OxyCODONE Immed Rel [Roxicodone 5 MG] 5 mg PO Q6H PRN 07/24/17 [History] 3 Allergy/AdvReac Type Severity Reaction Status Date / Time codeine AdvReac Unknown See Verified 08/23/15 10:10 Comments atorvastatin [From Lipitor] AdvReac See Verified 06/05/16 16:47 Comments lisinopril AdvReac Cough Verified 08/23/15 10:10 pravastatin AdvReac See Verified 06/05/16 16:47 Comments rosuvastatin [From Crestor] AdvReac See Verified 08/23/15 10:10 Comments All Systems PM: A 10-system review of systems was performed and is negative for pertinent findings except as documented above in the HPI. - Constitutional Vitals: Temp Pulse Resp BP Pulse Ox 97.8 F 75 16 160/74 95 07/24/17 23:15 07/24/17 23:15 07/24/17 23:31 07/24/17 23:15 07/24/17 23:31 General appearance: Present: A&O X 3, no acute distress, answers questions appropriately - Head Head exam: Present: atraumatic, normocephalic - Eye Eye exam: Present: PERRL, conjuntiva pink, sclera anicteric Pupils: Present: PERRL - Neck Neck exam general surgery: Present: supple, trachea midline. Absent: lymphadenopathy - Respiratory Respiratory exam: Present: CTAB, rhonchi (Scattered rhonchi bilaterally). Absent: accessory muscle use, rales, wheezes - Cardiovascular Cardiovascular exam: Present: RRR, +S1, +S2. Absent: diastolic murmur, gallop, rubs, systolic murmur - GI/Abdominal GI/Abdominal exam: Present: normal bowel sounds, soft, no peritoneal signs. Absent: distended, tenderness - Extremities Exam Extremities exam: Present: pedal edema (Mild pedal edema bilaterally), warm, radial pulses palpable and symmetrical. Absent: calf tenderness, cyanotic - Neurological Exam Neurological exam: Present: CN II-XII intact, oriented X3, no focal deficits. Absent: pronater drift, facial droop, speech deficit - Skin Skin exam: Present: dry, intact Internal Med - H&P Results - Labs CBC & Chem 7: 07/24/17 19:38 07/24/17 19:38 Labs: Cardiac Enzymes 07/24/17 Range/Units 22:42 Troponin I 0.04 H* (< 0.04) ng/mL - Assessment and plan (1) HCAP (healthcare-associated pneumonia) Current Visit: Yes Status: Acute Assessment and plan: Patient has shortness of breath, increased cough with sputum, chest x-ray shows right lower lobe pneumonia. Patient was admitted recently. Consider HCAP. - Place patient on linezolid, Zosyn and Levaquin - Follow up blood and sputum culture (2) Afib Current Visit: No Status: Acute Assessment and plan: Patient is on pacemaker and right now pacing rhythm. Continue xarelto for anticoagulation Qualifiers: Atrial fibrillation type: chronic Qualified Code(s): I48.2 - Chronic atrial fibrillation (3) CKD (chronic kidney disease) stage 3, GFR 30-59 ml/min Current Visit: No Status: Acute Assessment and plan: Creatinine is at baseline. Avoid nephrotoxic medications. (4) Congestive heart failure Current Visit: No Status: Acute Assessment and plan: Patient has systolic CHF with EF 30-35%. Continue beta martin, ANGELIKA inhibitor, Lasix and spironolactone Qualifiers: Heart failure type: systolic Heart failure chronicity: chronic Qualified Code(s): I50.22 - Chronic systolic (congestive) heart failure (5) DVT prophylaxis Current Visit: No Status: Acute Assessment and plan: Patient is on xarelto. (6) Elevated troponin Current Visit: No Status: Acute Assessment and plan: Patient denies chest pain. Most likely demand ischemia. We will check 3 sets of troponin. (7) Diabetes mellitus type 2, insulin dependent Current Visit: No Status: Chronic Assessment and plan: Continue basal and sliding scale insulin. Closely monitor glucose level (8) Syncope Current Visit: Yes Status: Acute Assessment and plan: Etiology is undetermined. Suspect AICD malfunction. - Continue cardiac monitoring - Echo and duplex carotid - Orthostatic vitals - We will consult cardiology Qualifiers: Syncope type: unspecified Qualified Code(s): R55 - Syncope and collapse - Time Spent With Patient Total time spent is greater than 50% in coordination of care (as documented) at patient's floor/unit and/or counseling patient: Greater than 35 minutes
[2017-07-25] MEDS: (Diclofenac Sodium [Voltaren] 2 GM) TP SCH ×3 (02:44→21:18)
[2017-07-25] MEDS: Insulin LISPRO 300 UNITS/3 ML VIAL SQ SCH ×5 (02:44→21:29)
[2017-07-25] MEDS: Insulin DETEMIR 100 UNIT/ML X5UNITS SQ SCH ×3 (02:45→21:25)
[2017-07-25 06:04] LABS: Basophils % 0.2 %; Eosinophils # 0.3 K/mcL (0.0-0.6); Eosinophils % 1.9 %; Hematocrit 30.7 % (37.5-50.1); Hemoglobin 9.1 g/dL (12.9-16.9); Immature Granulocytes % 0.8 % (0-4); Lymphocytes # 2.2 K/mcL (0.6-4.6); Lymphocytes % 15.3 %; Mean Corpuscular HGB Conc 29.6 g/dL (31.6-35.5); Mean Corpuscular Hemoglobin 23.2 pg (28.0-33.3); Mean Corpuscular Volume 78.1 fL (83.0-100.0); Mean Platelet Volume 10.4 fL (9.4-12.4); Monocytes # 1.3 K/mcL (0.0-1.3); Monocytes % 9.3 %; Neutrophils # 10.3 K/mcL (1.6-8.9); Nucleated Red Blood Cells 0.1 /100 WBC (0); Platelet Count 312 K/mcL (140-400); Red Blood Count 3.93 M/mcL (4.19-5.50); Red Cell Distribution Width 18.8 % (11.5-14.5); Segmented Neutrophils % 72.5 %
[2017-07-25 06:28] LABS: Troponin I 0.04 ng/mL (< 0.04)
[2017-07-25 06:32] LABS: Calcium 9.2 mg/dL (8.6-10.3); Magnesium 1.8 mg/dL (1.6-2.6); Potassium 3.2 mEq/L (3.5-5.1)
[2017-07-25] MEDS: Budesonide/Formoterol 160/4.5 MDI IH SCH ×2 (07:45→21:13)
[2017-07-25] MEDS: Tiotropium 18 MCG inhalation IH SCH (07:46)
[2017-07-25] MEDS: Levothyroxine 25 MCG TABLET PO SCH (08:43)
[2017-07-25] MEDS: Piperacillin/Tazobactam 3.375 GM in 0.9 % Sodium Chloride Mini Bag 100 ML IVPB SCH ×2 (08:43→16:14)
[2017-07-25] MEDS: Pregabalin 75 MG CAPSULE PO SCH ×3 (08:43→21:24)
[2017-07-25] MEDS: metOLazone 2.5 MG TABLET PO SCH (08:43)
[2017-07-25] MEDS: Colchicine 0.6 MG TABLET PO SCH (08:43)
[2017-07-25] MEDS: Spironolactone 25 MG TABLET PO SCH (08:43)
[2017-07-25] MEDS: Torsemide 20 MG TABLET PO SCH ×2 (08:44→21:19)
[2017-07-25] MEDS: Aspirin 81 MG TAB.CHEW PO SCH (08:44)
[2017-07-25] MEDS: *HR* Rivaroxaban 15 MG TABLET PO SCH (08:44)
[2017-07-25] MEDS: Cholecalciferol (D-3) 1,000 UNIT TABLET PO SCH (08:44)
[2017-07-25] MEDS: Eucerin Cream 57 GM TUBE TP SCH (08:45)
[2017-07-25] MEDS: OMEGA PO SCH ×2 (08:46→21:18)
[2017-07-25] MEDS: FATTY ACIDS PO SCH ×2 (08:46→21:18)
--- NOTE | 2017-07-25 11:41 | Internal Med Progress Note ---
Date of Encounter: 07/25/17 Time of Encounter: 11:39 - Assessment and plan (1) HCAP (healthcare-associated pneumonia) Current Visit: Yes Status: Acute Assessment and plan: Patient has shortness of breath, increased cough with sputum, chest x-ray showed right lower lobe pneumonia. on broad spectrum abx with zyvox/zosyn/ levaquin. check urine strep/legionela/sputum cultures. (2) Syncope Current Visit: Yes Status: Acute Assessment and plan: Etiology is undetermined. Suspect AICD malfunction. Will interrogate. Cardiology consulted. echo and carotid duplex pending. Qualifiers: Syncope type: unspecified Qualified Code(s): R55 - Syncope and collapse (3) Anemia Current Visit: Yes Status: Acute Assessment and plan: possibly anemia of chronic disease but MCV is 78. Will check iron studies. no signs of bleeding. Qualifiers: Anemia type: unspecified type Qualified Code(s): D64.9 - Anemia, unspecified (4) Congestive heart failure Current Visit: No Status: Acute Assessment and plan: Patient has systolic CHF with EF 30-35%. Continue beta martin, ANGELIKA inhibitor, Lasix and spironolactone Qualifiers: Heart failure type: systolic Heart failure chronicity: chronic Qualified Code(s): I50.22 - Chronic systolic (congestive) heart failure (5) Diabetes mellitus type 2, insulin dependent Current Visit: No Status: Chronic Assessment and plan: Continue basal and sliding scale insulin. Closely monitor glucose level (6) Elevated troponin Current Visit: No Status: Acute Assessment and plan: Patient denies chest pain. Most likely demand ischemia. .04 x3 (7) Afib Current Visit: No Status: Acute Qualifiers: Atrial fibrillation type: chronic Qualified Code(s): I48.2 - Chronic atrial fibrillation (8) CKD (chronic kidney disease) stage 3, GFR 30-59 ml/min Current Visit: No Status: Acute Assessment and plan: Creatinine is at baseline. Avoid nephrotoxic medications. (9) DVT prophylaxis Current Visit: No Status: Acute Assessment and plan: Patient is on xarelto. - Time Spent With Patient Total time spent is greater than 50% in coordination of care (as documented) at patient's floor/unit and/or counseling patient: - Subjective Interval history: Patient was seen and examined. No acute events. Afebrile. Was admitted yesterday with healthcare associated pneumonia. Daughter is at bedside and reports she [facility] when she noticed him suddenly collapse with some sudden body jerking that she was thinking it was his ICD firing. - Constitutional Vitals: Temp Pulse Resp BP Pulse Ox 97.5 F L 76 19 132/64 97 07/25/17 11:28 07/25/17 11:28 07/25/17 11:28 07/25/17 11:28 07/25/17 11:28 General appearance: Present: A&O X 3, no acute distress, answers questions appropriately Exam: GEN: NAD CVS: RRR. S1, S2, No m/r/g RESP: Diminished with coarse breath sounds bilaterally. ABD: Soft, NT, ND, +BS EXT: Venous changes. Trace lower extremity edema.. 2+ DP. No rashes NEURO: Nonfocal Internal Medicine: Result - Labs CBC & Chem 7: 07/25/17 05:38 07/25/17 05:38 Labs: Short CBC 07/25/17 Range/Units 05:38 WBC 14.3 H (4.3-11.1) K/mcL Hgb 9.1 L (12.9-16.9) g/dL Hct 30.7 L (37.5-50.1) % Plt Count 312 (140-400) K/mcL Neutrophils # 10.3 H (1.6-8.9) K/mcL BMP 07/25/17 05:38 Sodium 134 L Potassium 3.2 L Chloride 89 L Carbon Dioxide 34 H BUN 64 H Creatinine 1.53 H Glucose 325 H Calcium 9.2 Cardiac Enzymes 07/24/17 07/25/17 Range/Units 22:42 05:38 Troponin I 0.04 H* 0.04 H* (< 0.04) ng/mL Consult Discharge Plan - Plan [facility]errals: [facility] [Primary Care Provider[facility] -
--- NOTE | 2017-07-25 12:55 | Cardiology Consult Note ---
<Bri Nair Rene - Last Filed: 07/25/17 13:16> Date of Encounter: 07/25/17 Time of Encounter: 12:30 Assessment and Plan (1) Syncope Current Visit: Yes Status: Acute Etiology unclear. Patient is unsure if device was discharged. Hx of prior syncopal episodes in the past for VT/VF; started on amiodarone but d /c due to symptoms. Given hx of VT/VF, recommend K >4.0, Mg >2.0. Will obtain device check today. Repeat TTE pending. Qualifiers: Syncope type: unspecified Qualified Code(s): R55 - Syncope and collapse (2) Nonischemic cardiomyopathy Current Visit: Yes Status: Acute Longstanding history of NICMP s/p ICD. EF 30% per TTE 2016. Appears volume overload upon exam. Recent hospitalization at [facility], CXR upon admission demonstrates possible PNA, on IV atb. Continue current medications. Strict I&O's, daily weights, Na/fluid restricted diet. (3) Anemia Current Visit: Yes Status: Acute HgB appears to be down ~2 grams from baseline. Monitor closely, on Xarelto. Denies abnormal or unusual bleeding. Defer further mgmt to primary service. Qualifiers: Anemia type: unspecified type Qualified Code(s): D64.9 - Anemia, unspecified (4) PAF (paroxysmal atrial fibrillation) Current Visit: Yes Status: Acute Hx of PAF, on Xarelto. Rate controlled on oral betablocker. Discussion w patient/family: The assessment and plan as outlined above was discussed with the patient and/or family members who expressed understanding and agreement. All questions were answered. Thank you for involving us in the care of your patient. Please call with any questions. The patient will be discussed and reviewed with Dr. Elam; changes to be made accordingly. History of Present Illness Consult date: 07/25/17 Requesting physician: Shon Barrera Consult reason: syncope Chief complaint: syncope History of present illness: Mr. Altman is a 77 year old male with PMHx significant for NICMP s/p BiVICD, VT/VF, PAF (Xarelto), CKD, and COPD who presented to the ED after a syncopal episode yesterday. He reports he was trying to step up in his truck when he "passed out." Reports daughter was present when event occurred, lasted seconds. He is unsure if ICD fired. Reports shortness of breath prior to event. Recent hospitalization at [facility] due to shortness of breath. Past Med Surg Social Fam HX - Past Medical History Attestation: Yes The following information was validated with the patient. Source: patient Medical history: arthritis, atrial fibrillation, CHF, COPD, diabetes, hyperlipidemia, hypertension, myocardial infarction, RA, syncope Psychiatric history: no psych history - Past Surgical History Surgical History: pacemaker/AICD, other - Social History Smoking Status: Former smoker Smokeless Tobacco Status: No Alcohol use: none Drug use: none - Family History Mother Adopted: No Family Member Ethnicity: Non- Living Status: Hx Family Cardiac Disorders: No (unknown) Hx Family Respiratory Disorders: No (unknown) Hx Family Cancer: No (unknown) Hx Family GI Disorders: No (unknown) Hx Family Endocrine Disorder: No (unknown) Hx Family Neuromuscular Disorders: No (unknown) Hx Family Neurologic Disorders: No (unknown) Hx Family HEENT Disorders: No (unknown) Hx Family Autoimmune Disorders: No (unknown) Medications and Allergies Aspirin 162 mg PO DAILY 11/13/14 [History] Nitroglycerin [Nitrostat] 0.4 mg SL Q5M PRN 11/13/14 [History] [place]-3 Fatty Acids [[place]-3] 2,000 mg PO BID 11/13/14 [History] Potassium Chloride 20 meq PO DAILY 11/13/14 [History] Rivaroxaban [Xarelto] 15 mg PO DAILY 11/13/14 [History] Spironolactone 25 mg PO DAILY 11/13/14 [History] Terazosin HCl 1 mg PO HS 11/13/14 [History] Tiotropium [Spiriva] 18 mcg IH DAILY 11/13/14 [History] Acetaminophen [Tylenol] 650 mg PO TID PRN 06/05/16 [History] Albuterol Sulfate [Albuterol Inhaler] 2 puff IH Q6H PRN 06/05/16 [History] Cholecalciferol (D-3) [Vitamin D] 2,000 unit PO DAILY 06/05/16 [History] Diclofenac Sodium [Voltaren] 2 gm TP Q12H 06/05/16 [History] Eucerin Creme 1 appl TP DAILY 06/05/16 [History] Hydroxychloroquine [Plaquenuil] 200 mg PO BID 06/05/16 [History] Insulin ASPART [NovoLOG] 20 unit SQ BID 06/05/16 [History] Insulin Glargine,Hum.rec.anlog [Lantus Solostar] 70 unit SQ BID 06/05/16 [ History] Lidocaine 4% CRM (LMX) [Lmx 4] 1 appl TP BID PRN 06/05/16 [History] Mineral Oil/Petrolatum,White [Refresh P.m. Ointment] 1 appl BOTH EYES HS [History] Omeprazole [PriLOSEC] 20 mg PO BID 06/05/16 [History] Pregabalin [Lyrica] 75 mg PO TID 06/05/16 [History] Simvastatin [Zocor] 10 mg PO QPM 06/05/16 [History] Torsemide [Demadex] 20 mg PO BID 06/05/16 [History] metOLazone [Zaroxolyn] 2.5 mg PO DAILY 06/05/16 [History] Carvedilol [Coreg] 6.25 mg PO BIDWM #60 tablet 06/09/16 [Rx] Allopurinol [Zyloprim] 300 mg PO DAILY 07/24/17 [History] Budesonide/Formoterol 160/4.5 [Symbicort 160/4.5] 2 puff IH BIDR 07/24/17 [ History] Colchicine [Colcrys] 0.6 mg PO DAILY 07/24/17 [History] Insulin ASPART [NovoLOG] 30 unit SQ QPM 07/24/17 [History] Levothyroxine [Synthroid] 12.5 mcg PO QAM 07/24/17 [History] Melatonin [Melatin] 9 mg PO HS 07/24/17 [History] OxyCODONE Immed Rel [Roxicodone 5 MG] 5 mg PO Q6H PRN 07/24/17 [History] 3 Allergy/AdvReac Type Severity Reaction Status Date / Time codeine AdvReac Unknown See Verified 08/23/15 10:10 Comments atorvastatin [From Lipitor] AdvReac See Verified 06/05/16 16:47 Comments lisinopril AdvReac Cough Verified 08/23/15 10:10 pravastatin AdvReac See Verified 06/05/16 16:47 Comments rosuvastatin [From Crestor] AdvReac See Verified 08/23/15 10:10 Comments All Systems Review: The remainder of the systems were reviewed and are negative - Cardiovascular Cardiovascular: as per HPI Physical Examination Vital Signs, Last 4 Hours Temp Pulse Pulse Pulse Pulse Resp BP 07/25/17 12:12 07/25/17 12:08 72 76 75 07/25/17 11:28 97.5 F L 76 19 132/64 BP BP BP Pulse Ox 07/25/17 12:12 98/60 103/54 114/72 07/25/17 12:08 98/60 103/54 114/72 07/25/17 11:28 97 Results 07/25/17 05:38 07/25/17 05:38 Lab Results 07/24/17 07/25/17 07/25/17 22:42 05:38 05:38 WBC 14.3 H Hgb 9.1 L Hct 30.7 L Plt Count 312 Sodium 134 L Potassium 3.2 L Chloride 89 L Carbon Dioxide 34 H BUN 64 H Creatinine 1.53 H Glucose 325 H Calcium 9.2 Magnesium 1.8 Troponin I 0.04 H* 0.04 H* Active Medications Acetaminophen (Tylenol) 650 mg PO Q6HR PRN PRN Reason: Mild Pain/Fever Stop: 01/23/18 21:54 Albuterol Sulfate (Albuterol Inhaler) 2 puff IH Q6H PRN PRN Reason: Shortness Of Breath/Wheezing Stop: 01/23/18 22:00 Allopurinol (Zyloprim) 300 mg PO DAILY [facility] Stop: 01/24/18 09:01 Last Admin: 07/25/17 08:44 Dose: 300 mg Artificial Tears (Akwa Tears) 1 drop BOTH EYES HS [facility] Stop: 01/24/18 21:01 Aspirin (Aspirin) 162 mg PO DAILY JOHN Stop: 01/24/18 09:01 Last Admin: 07/25/17 08:44 Dose: 162 mg Budesonide/Formoterol Fumarate (Symbicort) 2 puff IH BIDR JOHN PRN Reason: Protocol Stop: 01/23/18 22:01 Last Admin: 07/25/17 07:45 Dose: 2 puff Carvedilol (Coreg) 6.25 mg PO BIDWM JOHN PRN Reason: Protocol Stop: 01/24/18 08:01 Last Admin: 07/25/17 08:44 Dose: 6.25 mg Colchicine (Colcrys) 0.6 mg PO DAILY [facility] Stop: 01/24/18 09:01 Last Admin: 07/25/17 08:43 Dose: 0.6 mg Dextrose/Water (Dextrose 50% (Syg)) 25 ml IVP AD PRN PRN Reason: Hypoglycemia Stop: 01/23/18 22:10 Glucagon (Glucagen) 1 mg IM ONCE PRN PRN Reason: Hypoglycemia Stop: 01/23/18 22:10 Glucose (Gluctose) 15 gm PO ONCE PRN PRN Reason: Hypoglycemia Stop: 01/23/18 22:10 Glucose (Gluctose) 30 gm PO ONCE PRN PRN Reason: Hypoglycemia Stop: 01/23/18 22:10 Hydroxychloroquine Sulfate (Plaquenuil) 200 mg PO BID JOHN Stop: 01/24/18 09:01 Last Admin: 07/25/17 08:44 Dose: 200 mg Linezolid/Dextrose (Zyvox Premix 600mg/300ml) 600 mg in 300 mls @ 150 mls/hr IVPB ONCE ONE Stop: 07/25/17 22:12 Levofloxacin/Dextrose (Levaquin Premix 750mg/150 Ml) 750 mg in 150 mls @ 100 mls/hr IVPB Q48H JOHN PRN Reason: Protocol Stop: 01/25/18 22:01 Linezolid/Dextrose (Zyvox Premix 600mg/300ml) 600 mg in 300 mls @ 150 mls/hr IVPB Q12HR [facility] Stop: 01/24/18 06:01 Last Admin: 07/25/17 07:05 Dose: 150 mls/hr Piperacillin Sod/Tazobactam (Sod 3.375 gm/ Sodium Chloride) 100 mls @ 25 mls/ hr IVPB Q8HR [facility] Stop: 01/24/18 08:01 Last Admin: 07/25/17 08:43 Dose: 25 mls/hr Dextrose (Dextrose 5%) 1,000 mls @ 100 mls/hr IVC .Q10H PRN PRN Reason: HYPOGLYCEMIA Stop: 01/23/18 22:10 Insulin Detemir (Levemir) 70 unit SQ BID JOHN Stop: 01/23/18 22:16 Last Admin: 07/25/17 08:42 Dose: 70 unit Insulin Human Lispro (Humalog) 0 units SQ TIDAC JOHN PRN Reason: Protocol Stop: 01/24/18 07:31 Last Admin: 07/25/17 12:41 Dose: 18 units Insulin Human Lispro (Humalog) 0 units SQ HS JOHN PRN Reason: Protocol Stop: 01/23/18 22:12 Last Admin: 07/25/17 02:44 Dose: Not Given Levothyroxine Sodium (Synthroid) 12.5 mcg PO QAM [facility] Stop: 01/24/18 09:01 Last Admin: 07/25/17 08:43 Dose: 12.5 mcg Lidocaine HCl (Lmx 4) 5 gm TP BID PRN PRN Reason: Pain Stop: 01/23/18 22:00 Melatonin (Melatonin) 9 mg PO HS [facility] Stop: 01/24/18 21:01 Metolazone (Zaroxolyn) 2.5 mg PO DAILY [facility] Stop: 01/24/18 09:01 Last Admin: 07/25/17 08:43 Dose: 2.5 mg Multi-Ingredient Ointment (Eucerin Creme) 1 appl TP DAILY [facility] Stop: 01/24/18 09:01 Last Admin: 07/25/17 08:45 Dose: Not Given Naloxone HCl (Narcan) 0.4 mg IVP Q2MIN PRN PRN Reason: SEE COMMENTS Stop: 01/23/18 21:54 Nitroglycerin (Nitroglycerin) 0.4 mg SL Q5M PRN PRN Reason: Chest Pain Stop: 01/23/18 22:00 Omeprazole (Prilosec) 20 mg PO BID JOHN PRN Reason: Protocol Stop: 01/24/18 09:01 Last Admin: 07/25/17 08:43 Dose: 20 mg Oxycodone HCl (Roxicodone) 5 mg PO Q6H PRN; Protocol PRN Reason: Severe Pain Stop: 01/23/18 22:00 Last Admin: 07/25/17 02:04 Dose: 5 mg Pharmacy Profile Note (Patient Taking Own Medication) 0 each TP Q12H [facility] Stop: 01/23/18 22:01 Last Admin: 07/25/17 08:46 Dose: Not Given Pharmacy Profile Note (Patient Taking Own Medication) 0 each PO BID [facility] Stop: 01/24/18 09:01 Last Admin: 07/25/17 08:46 Dose: Not Given Potassium Chloride (Potassium Chloride) 20 meq PO DAILY [facility] Stop: 01/24/18 09:01 Last Admin: 07/25/17 08:43 Dose: 20 meq Pregabalin (Lyrica) 75 mg PO TID JOHN Stop: 01/24/18 09:01 Last Admin: 07/25/17 08:43 Dose: 75 mg Rivaroxaban (Xarelto) 15 mg PO DAILY JOHN Stop: 01/24/18 09:01 Last Admin: 07/25/17 08:44 Dose: 15 mg Simvastatin (Zocor) 10 mg PO QPM JOHN Stop: 01/24/18 18:01 Spironolactone (Aldactone) 25 mg PO DAILY JOHN Stop: 01/24/18 09:01 Last Admin: 07/25/17 08:43 Dose: 25 mg Terazosin HCl (Hytrin) 1 mg PO HS JOHN Stop: 01/24/18 21:01 Tiotropium [place] (Spiriva) 18 mcg IH DAILY [facility] Stop: 01/24/18 09:01 Last Admin: 07/25/17 07:46 Dose: 18 mcg Torsemide (Demadex) 20 mg PO BID JOHN Stop: 01/24/18 09:01 Last Admin: 07/25/17 08:44 Dose: 20 mg Vitamin D (Vitamin D) 1,000 unit PO DAILY JOHN Stop: 01/24/18 09:01 Last Admin: 07/25/17 08:44 Dose: 1,000 unit - Imaging and Cardiology Other Results: 12 hour tele: avg HR=76 - EKG Interpretation EKG results cardiology: personally reviewed Consult Discharge Plan - Plan [facility]errals: [facility]Primary Care Provider[facility] - <Pratik Elam - Last Filed: 07/25/17 20:24> Date of Encounter: 07/25/17 Time of Encounter: 15:00 - Attending Attestation I have personally performed a face to face evaluation on this patient. I have reviewed and agree with the care plan. History and Exam by me shows: CC: Passed out, Pt reports he was walking to the car with complaints of increased shortness of breath, awoke on the ground. Pt reports similar episodes in the past were the result of AICD firing. He notes increased shortness of breath over the last two weeks, since hospital discharge from the [facility]. Pt reports has been feeling worse of the last three days, has been more short of breath, with increased fatique. His family reports he has been more fatigued, diaphoretic and more short of breath with minimal exertion. He denies chest pain, palpitations or shortness of breath. PMH: reviewed PE: Pt seen and examined, agree with findings as documented. IMP/Plan: 1. Ventricular Tachycardia: interrogated AICD, had V tach arrest with successful delivered therapy, now in NSR. Etiology of VT unclear, will monitor for ischemia, hypoxia. Pt was on amiodarone, discontinued for unclear reasons. 2. Severe non ischemic dilated cardiomyopathy, last Ef 30% 3. Pneumonia demonstrated on admission CXR 4. Anemia - unclear etiology, on Xaralto, will monitor for GI blood loss. Assessment and Plan Discussion w patient/family: The assessment and plan as outlined above was discussed with the patient and/or family members who expressed understanding and agreement. All questions were answered. Thank you for involving us in the care of your patient. Please call with any questions. History of Present Illness History of present illness: Mr. Altman is a 77 year old male All Systems Review: The remainder of the systems were reviewed and are negative Physical Examination Vital Signs, Last 4 Hours Temp Pulse Resp BP Pulse Ox 07/25/17 19:28 97.6 F 71 18 131/79 95 07/25/17 16:24 97.4 F L 74 19 118/63 96 Results 07/25/17 05:38 07/25/17 05:38 Lab Results 07/24/17 07/25/17 07/25/17 22:42 05:38 05:38 WBC 14.3 H Hgb 9.1 L Hct 30.7 L Plt Count 312 Sodium 134 L Potassium 3.2 L Chloride 89 L Carbon Dioxide 34 H BUN 64 H Creatinine 1.53 H Glucose 325 H Calcium 9.2 Magnesium 1.8 Troponin I 0.04 H* 0.04 H*
[2017-07-25 14:54] LABS: % Iron Saturation 4 % (20-55); Ferritin 31 ng/ml (20-250); Iron 19 mcg/dL (65-175); Transferrin 351 mg/dL (203-362)
[2017-07-25] MEDS ORDERED: Insulin LISPRO 300 UNITS/3 ML VIAL SQ SCH (21:00)
[2017-07-25] MEDS: Artificial Tears SOLN 15 ML BOTTLE BOTH EYES SCH (21:18)
[2017-07-25] MEDS: Melatonin 3 MG TABLET PO SCH (21:19)
[2017-07-26] MEDS: Piperacillin/Tazobactam 3.375 GM in 0.9 % Sodium Chloride Mini Bag 100 ML IVPB SCH ×4 (01:55→23:44)
[2017-07-26 05:16] LABS: Basophils % 0.2 %; Eosinophils # 0.4 K/mcL (0.0-0.6); Eosinophils % 3.1 %; Hematocrit 31.4 % (37.5-50.1); Hemoglobin 9.5 g/dL (12.9-16.9); Immature Granulocytes % 0.8 % (0-4); Lymphocytes # 2.4 K/mcL (0.6-4.6); Lymphocytes % 17.9 %; Mean Corpuscular HGB Conc 30.3 g/dL (31.6-35.5); Mean Corpuscular Hemoglobin 23.9 pg (28.0-33.3); Mean Corpuscular Volume 79.1 fL (83.0-100.0); Mean Platelet Volume 9.9 fL (9.4-12.4); Monocytes # 1.3 K/mcL (0.0-1.3); Monocytes % 9.7 %; Neutrophils # 9.1 K/mcL (1.6-8.9); Platelet Count 270 K/mcL (140-400); Red Blood Count 3.97 M/mcL (4.19-5.50); Red Cell Distribution Width 18.5 % (11.5-14.5); Segmented Neutrophils % 68.3 %
[2017-07-26 05:36] LABS: Calcium 9.4 mg/dL (8.6-10.3); Magnesium 1.8 mg/dL (1.6-2.6); Potassium 3.1 mEq/L (3.5-5.1)
[2017-07-26] MEDS: Budesonide/Formoterol 160/4.5 MDI IH SCH ×2 (07:39→19:57)
[2017-07-26] MEDS: Tiotropium 18 MCG inhalation IH SCH (07:39)
[2017-07-26] MEDS: Torsemide 20 MG TABLET PO SCH ×2 (07:54→20:38)
[2017-07-26] MEDS: *HR* OxyCODONE Immed Rel 5 MG TABLET PO PRN ×3 (07:54→20:38)
[2017-07-26] MEDS: Spironolactone 25 MG TABLET PO SCH (07:55)
[2017-07-26] MEDS: Levothyroxine 25 MCG TABLET PO SCH (07:55)
[2017-07-26] MEDS: Insulin DETEMIR 100 UNIT/ML X5UNITS SQ SCH ×2 (07:55→20:50)
[2017-07-26] MEDS: Cholecalciferol (D-3) 1,000 UNIT TABLET PO SCH (07:55)
[2017-07-26] MEDS: metOLazone 2.5 MG TABLET PO SCH (07:55)
[2017-07-26] MEDS: Pregabalin 75 MG CAPSULE PO SCH ×3 (07:55→20:37)
[2017-07-26] MEDS: Aspirin 81 MG TAB.CHEW PO SCH (07:55)
[2017-07-26] MEDS: Colchicine 0.6 MG TABLET PO SCH (07:55)
[2017-07-26] MEDS: Insulin LISPRO 300 UNITS/3 ML VIAL SQ SCH ×6 (07:56→20:42)
[2017-07-26] MEDS: (Diclofenac Sodium [Voltaren] 2 GM) TP SCH ×2 (07:57→23:57)
[2017-07-26] MEDS: *HR* Rivaroxaban 15 MG TABLET PO SCH (07:57)
[2017-07-26] MEDS: FATTY ACIDS PO SCH ×2 (07:57→20:40)
[2017-07-26] MEDS: OMEGA PO SCH ×2 (07:57→20:40)
--- NOTE | 2017-07-26 11:34 | Internal Med Progress Note ---
Date of Encounter: 07/26/17 Time of Encounter: 11:31 - Assessment and plan (1) HCAP (healthcare-associated pneumonia) Current Visit: Yes Status: Acute Assessment and plan: Patient has shortness of breath, increased cough with sputum, chest x-ray showed right lower lobe pneumonia. on broad spectrum abx with zyvox/zosyn/ levaquin. negative urine strep/legionela. f/u on sputum cultures. (2) Syncope Current Visit: Yes Status: Acute Assessment and plan: Etiology is undetermined. Suspect AICD malfunction. Will interrogate. Cardiology consulted. echo and carotid duplex pending. Qualifiers: Syncope type: unspecified Qualified Code(s): R55 - Syncope and collapse (3) Anemia Current Visit: Yes Status: Acute Assessment and plan: possibly anemia of chronic disease but MCV is 78. Will check iron studies show low iron stores. Would not give IV iron while treating an active infection. started oral iron. no signs of bleeding. Qualifiers: Anemia type: unspecified type Qualified Code(s): D64.9 - Anemia, unspecified (4) Congestive heart failure Current Visit: No Status: Acute Assessment and plan: Patient has systolic CHF with EF 30-35%. Continue beta martin, ANGELIKA inhibitor, Lasix and spironolactone Qualifiers: Heart failure type: systolic Heart failure chronicity: chronic Qualified Code(s): I50.22 - Chronic systolic (congestive) heart failure (5) Diabetes mellitus type 2, insulin dependent Current Visit: No Status: Chronic Assessment and plan: glucose is elevated in the 300s. will increase basal insulin to 80 units BID from 70 units BID. Will add prandial coverage 10 units. Continue sliding scale insulin. Closely monitor glucose level (6) Elevated troponin Current Visit: No Status: Acute Assessment and plan: Patient denies chest pain. Most likely demand ischemia. .04 x3 (7) Afib Current Visit: No Status: Acute Assessment and plan: Patient is on pacemaker and right now pacing rhythm. Continue xarelto for anticoagulation Qualifiers: Atrial fibrillation type: chronic Qualified Code(s): I48.2 - Chronic atrial fibrillation (8) CKD (chronic kidney disease) stage 3, GFR 30-59 ml/min Current Visit: No Status: Acute Assessment and plan: Creatinine is at baseline. Avoid nephrotoxic medications. (9) DVT prophylaxis Current Visit: No Status: Acute Assessment and plan: Patient is on xarelto. - Time Spent With Patient Total time spent is greater than 50% in coordination of care (as documented) at patient's floor/unit and/or counseling patient: - Subjective Interval history: Patient was seen and examined. No acute events. cough is improved. Afebrile. Was admitted with healthcare associated pneumonia. Daughterreported she was taking her father to the [place] urgent care when she noticed him suddenly collapse with some sudden body jerking that she was thinking it was his ICD firing. - Constitutional Vitals: Temp Pulse Resp BP Pulse Ox 97.3 F L 76 17 108/68 93 07/26/17 11:12 07/26/17 11:12 07/26/17 11:12 07/26/17 11:12 07/26/17 11:12 General appearance: Present: A&O X 3, no acute distress, answers questions appropriately Exam: GEN: NAD CVS: RRR. S1, S2, No m/r/g RESP: Diminished with coarse breath sounds bilaterally. ABD: Soft, NT, ND, +BS EXT: Venous changes. Trace lower extremity edema.. 2+ DP. No rashes NEURO: Nonfocal Internal Medicine: Result - Labs CBC & Chem 7: 07/26/17 05:06 07/26/17 05:06 Labs: Short CBC 07/26/17 Range/Units 05:06 WBC 13.3 H (4.3-11.1) K/mcL Hgb 9.5 L (12.9-16.9) g/dL Hct 31.4 L (37.5-50.1) % Plt Count 270 (140-400) K/mcL Neutrophils # 9.1 H (1.6-8.9) K/mcL BMP 07/26/17 05:06 Sodium 137 Potassium 3.1 L Chloride 91 L Carbon Dioxide 35 H BUN 53 H Creatinine 1.41 H Glucose 197 H Calcium 9.4 Consult Discharge Plan - Plan [facility]errals: [facility] [Primary Care Provider] -
[2017-07-26] MEDS: Eucerin Cream 57 GM TUBE TP SCH (11:36)
[2017-07-26] MEDS ORDERED: Insulin DETEMIR 100 UNIT/ML X5UNITS SQ ONE (11:39)
--- NOTE | 2017-07-26 12:40 | Cardiology Progress Note ---
Date of Encounter: 07/26/17 Time of Encounter: 12:00 Assessment and Plan (1) Syncope Current Visit: Yes Status: Acute [place] scientific ICD interrogated yesterday--s/p x1 appropriate ICD shock for VT. Previously on amiodarone for VT, discontinued for unclear reasons. No further episodes since admission. Continue betablocker and agreesively replace electrolytes, recommend K >4.0, Mg >2.0 Mag rider today, oral potassium replacement today. Repeat TTE pending. Qualifiers: Syncope type: unspecified Qualified Code(s): R55 - Syncope and collapse (2) Nonischemic cardiomyopathy Current Visit: Yes Status: Acute Longstanding history of NICMP s/p ICD. EF 30% per TTE 2017. Appears volume overload upon exam. Recent hospitalization at [place], CXR upon admission demonstrates possible PNA, on IV atb. Continue current medications. Strict I&O's, daily weights, Na/fluid restricted diet. (3) Anemia Current Visit: Yes Status: Acute HgB appears to be down ~2 grams from baseline. Monitor closely, on Xarelto. Denies abnormal or unusual bleeding. Defer further mgmt to primary service. Qualifiers: Anemia type: unspecified type Qualified Code(s): D64.9 - Anemia, unspecified (4) PAF (paroxysmal atrial fibrillation) Current Visit: Yes Status: Acute Hx of PAF, on Xarelto. Currently in NSR. Continue BB. Discussion w patient/family: The assessment and plan as outlined above was discussed with the patient and/or family members who expressed understanding and agreement. All questions were answered. Thank you for involving us in the care of your patient. Please call with any questions. The patient will be discussed and reviewed with Dr. Elam; changes to be made accordingly. Subjective Principal diagnosis: ICD shock Interval history: Seen and examined. No further ICD shocks reported. Breathing seems to be better today, still with significant BLE edema. No chest pain or discomfort. No other symptoms reported including pre-syncope/ syncope. Objective Vital Signs, Last 4 Hours Temp Pulse Resp BP Pulse Ox 07/26/17 11:12 97.3 F L 76 17 108/68 93 General: Conversant HEENT: Atraumatic, Normocephaly Cardiac: Reg Rate and Rhythm, Normal S1 and S2 Lungs: Other (Decreased) Neuro: Alert and responsive Abdomen: Soft Extremities: Other (large BLE edema/redness. Significant LE edema +3) Results 07/26/17 05:06 07/26/17 05:06 Lab Results 07/26/17 07/26/17 05:06 05:06 WBC 13.3 H Hgb 9.5 L Hct 31.4 L Plt Count 270 Sodium 137 Potassium 3.1 L Chloride 91 L Carbon Dioxide 35 H BUN 53 H Creatinine 1.41 H Glucose 197 H Calcium 9.4 Magnesium 1.8 Active Medications Acetaminophen (Tylenol) 650 mg PO Q6HR PRN PRN Reason: Mild Pain/Fever Stop: 01/23/18 21:54 Albuterol Sulfate (Albuterol Inhaler) 2 puff IH Q6H PRN PRN Reason: Shortness Of Breath/Wheezing Stop: 01/23/18 22:00 Allopurinol (Zyloprim) 300 mg PO DAILY [facility] Stop: 01/24/18 09:01 Last Admin: 07/26/17 07:55 Dose: 300 mg Artificial Tears (Akwa Tears) 1 drop BOTH EYES HS [facility] Stop: 01/24/18 21:01 Last Admin: 07/25/17 21:18 Dose: 1 drop Aspirin (Aspirin) 162 mg PO DAILY JOHN Stop: 01/24/18 09:01 Last Admin: 07/26/17 07:55 Dose: 162 mg Budesonide/Formoterol Fumarate (Symbicort) 2 puff IH BIDR JOHN PRN Reason: Protocol Stop: 01/23/18 22:01 Last Admin: 07/26/17 07:39 Dose: 2 puff Carvedilol (Coreg) 6.25 mg PO BIDWM JOHN PRN Reason: Protocol Stop: 01/24/18 08:01 Last Admin: 07/26/17 07:54 Dose: 6.25 mg Colchicine (Colcrys) 0.6 mg PO DAILY JOHN Stop: 01/24/18 09:01 Last Admin: 07/26/17 07:55 Dose: 0.6 mg Dextrose/Water (Dextrose 50% (Syg)) 25 ml IVP AD PRN PRN Reason: Hypoglycemia Stop: 01/23/18 22:10 Ferrous Sulfate (Ferrous Sulfate) 325 mg PO DAILY@0800 JOHN Stop: 01/25/18 08:01 Last Admin: 07/26/17 07:55 Dose: 325 mg Glucagon (Glucagen) 1 mg IM ONCE PRN PRN Reason: Hypoglycemia Stop: 01/23/18 22:10 Glucose (Gluctose) 15 gm PO ONCE PRN PRN Reason: Hypoglycemia Stop: 01/23/18 22:10 Glucose (Gluctose) 30 gm PO ONCE PRN PRN Reason: Hypoglycemia Stop: 01/23/18 22:10 Hydroxychloroquine Sulfate (Plaquenuil) 200 mg PO BID [facility] Stop: 01/24/18 09:01 Last Admin: 07/26/17 07:55 Dose: 200 mg Levofloxacin/Dextrose (Levaquin Premix 750mg/150 Ml) 750 mg in 150 mls @ 100 mls/hr IVPB Q48H JOHN PRN Reason: Protocol Stop: 01/25/18 22:01 Linezolid/Dextrose (Zyvox Premix 600mg/300ml) 600 mg in 300 mls @ 150 mls/hr IVPB Q12HR [facility] Stop: 01/24/18 06:01 Last Admin: 07/26/17 05:51 Dose: 150 mls/hr Piperacillin Sod/Tazobactam (Sod 3.375 gm/ Sodium Chloride) 100 mls @ 25 mls/ hr IVPB Q8HR [facility] Stop: 01/24/18 08:01 Last Admin: 07/26/17 07:56 Dose: 25 mls/hr Dextrose (Dextrose 5%) 1,000 mls @ 100 mls/hr IVC .Q10H PRN PRN Reason: HYPOGLYCEMIA Stop: 01/23/18 22:10 Insulin Detemir (Levemir) 80 unit SQ BID [facility] Stop: 01/25/18 21:01 Insulin Human Lispro (Humalog) 0 units SQ TIDAC [facility] PRN Reason: Protocol Stop: 01/24/18 07:31 Last Admin: 07/26/17 11:36 Dose: 16 units Insulin Human Lispro (Humalog) 0 units SQ HS [facility] PRN Reason: Protocol Stop: 01/23/18 22:12 Last Admin: 07/25/17 21:29 Dose: 6 units Insulin Human Lispro (Humalog) 10 units 0.08 units/kg (10 units) SQ TIDWM [facility] Stop: 01/25/18 12:01 Levothyroxine Sodium (Synthroid) 12.5 mcg PO QAM [facility] Stop: 01/24/18 09:01 Last Admin: 07/26/17 07:55 Dose: 12.5 mcg Lidocaine HCl (Lmx 4) 5 gm TP BID PRN PRN Reason: Pain Stop: 01/23/18 22:00 Melatonin (Melatonin) 9 mg PO HS JOHN Stop: 01/24/18 21:01 Last Admin: 07/25/17 21:19 Dose: 9 mg Metolazone (Zaroxolyn) 2.5 mg PO DAILY JOHN Stop: 01/24/18 09:01 Last Admin: 07/26/17 07:55 Dose: 2.5 mg Multi-Ingredient Ointment (Eucerin Creme) 1 appl TP DAILY JOHN Stop: 01/24/18 09:01 Last Admin: 07/26/17 11:36 Dose: Not Given Naloxone HCl (Narcan) 0.4 mg IVP Q2MIN PRN PRN Reason: SEE COMMENTS Stop: 01/23/18 21:54 Nitroglycerin (Nitroglycerin) 0.4 mg SL Q5M PRN PRN Reason: Chest Pain Stop: 01/23/18 22:00 Omeprazole (Prilosec) 20 mg PO BID JOHN PRN Reason: Protocol Stop: 01/24/18 09:01 Last Admin: 07/26/17 07:54 Dose: 20 mg Oxycodone HCl (Roxicodone) 5 mg PO Q6H PRN; Protocol PRN Reason: Severe Pain Stop: 01/23/18 22:00 Last Admin: 07/26/17 07:54 Dose: 5 mg Pharmacy Profile Note (Patient Taking Own Medication) 0 each TP Q12H JOHN Stop: 01/23/18 22:01 Last Admin: 07/26/17 07:57 Dose: Not Given Pharmacy Profile Note (Patient Taking Own Medication) 0 each PO BID [facility] Stop: 01/24/18 09:01 Last Admin: 07/26/17 07:57 Dose: Not Given Potassium Chloride (Potassium Chloride) 20 meq PO DAILY JOHN Stop: 01/24/18 09:01 Last Admin: 07/26/17 07:54 Dose: 20 meq Pregabalin (Lyrica) 75 mg PO TID JOHN Stop: 01/24/18 09:01 Last Admin: 07/26/17 07:55 Dose: 75 mg Rivaroxaban (Xarelto) 15 mg PO DAILY JOHN Stop: 01/24/18 09:01 Last Admin: 07/26/17 07:57 Dose: 15 mg Simvastatin (Zocor) 10 mg PO QPM JOHN Stop: 01/24/18 18:01 Last Admin: 07/25/17 17:10 Dose: 10 mg Spironolactone (Aldactone) 25 mg PO DAILY [facility] Stop: 01/24/18 09:01 Last Admin: 07/26/17 07:55 Dose: 25 mg Terazosin HCl (Hytrin) 1 mg PO HS JOHN Stop: 01/24/18 21:01 Last Admin: 07/25/17 21:19 Dose: 1 mg Tiotropium [place] (Spiriva) 18 mcg IH DAILY [facility] Stop: 01/24/18 09:01 Last Admin: 07/26/17 07:39 Dose: 18 mcg Torsemide (Demadex) 20 mg PO BID JOHN Stop: 01/24/18 09:01 Last Admin: 07/26/17 07:54 Dose: 20 mg Vitamin D (Vitamin D) 1,000 unit PO DAILY JOHN Stop: 01/24/18 09:01 Last Admin: 07/26/17 07:55 Dose: 1,000 unit - Imaging and Cardiology Echo: pending, report reviewed Other Results: 12 hour tele: avg HR=89 - EKG Interpretation EKG results cardiology: personally reviewed Consult Discharge Plan - Plan [facility]errals: [facility] [Primary Care Provider] -
[2017-07-26] MEDS: Artificial Tears SOLN 15 ML BOTTLE BOTH EYES SCH (20:37)
[2017-07-26] MEDS: Melatonin 3 MG TABLET PO SCH (20:39)
[2017-07-26] MEDS ORDERED: Levofloxacin 750 MG/150 ML 750 MG/150 ML BAG IVPB SCH (22:00)
[2017-07-27 04:09] LABS: Basophils % 0.2 %; Eosinophils # 0.4 K/mcL (0.0-0.6); Eosinophils % 3.3 %; Hematocrit 29.8 % (37.5-50.1); Hemoglobin 8.8 g/dL (12.9-16.9); Immature Granulocytes % 0.6 % (0-4); Lymphocytes # 2.8 K/mcL (0.6-4.6); Lymphocytes % 22.1 %; Mean Corpuscular HGB Conc 29.5 g/dL (31.6-35.5); Mean Corpuscular Hemoglobin 23.5 pg (28.0-33.3); Mean Corpuscular Volume 79.7 fL (83.0-100.0); Mean Platelet Volume 10.3 fL (9.4-12.4); Monocytes # 1.1 K/mcL (0.0-1.3); Neutrophils # 8.1 K/mcL (1.6-8.9); Platelet Count 264 K/mcL (140-400); Red Blood Count 3.74 M/mcL (4.19-5.50); Red Cell Distribution Width 18.6 % (11.5-14.5); Segmented Neutrophils % 64.8 %
[2017-07-27 04:43] LABS: Calcium 8.9 mg/dL (8.6-10.3); Magnesium 1.9 mg/dL (1.6-2.6)
[2017-07-27 04:45] LABS: Thyroid Stimulating Hormone 3.563 mcIU/mL (0.340-5.600)
[2017-07-27 06:07] VITALS: BP 138/77
[2017-07-27] MEDS: Insulin LISPRO 300 UNITS/3 ML VIAL SQ SCH ×4 (08:11→11:48)
[2017-07-27] MEDS: Eucerin Cream 57 GM TUBE TP SCH (08:12)
[2017-07-27] MEDS: Insulin DETEMIR 100 UNIT/ML X5UNITS SQ SCH (08:12)
[2017-07-27] MEDS: metOLazone 2.5 MG TABLET PO SCH (08:12)
[2017-07-27] MEDS: Torsemide 20 MG TABLET PO SCH (08:12)
[2017-07-27] MEDS: Levothyroxine 25 MCG TABLET PO SCH (08:13)
[2017-07-27] MEDS: Spironolactone 25 MG TABLET PO SCH (08:13)
[2017-07-27] MEDS: Colchicine 0.6 MG TABLET PO SCH (08:13)
[2017-07-27] MEDS: Pregabalin 75 MG CAPSULE PO SCH (08:13)
[2017-07-27] MEDS: Piperacillin/Tazobactam 3.375 GM in 0.9 % Sodium Chloride Mini Bag 100 ML IVPB SCH (08:13)
[2017-07-27] MEDS: Cholecalciferol (D-3) 1,000 UNIT TABLET PO SCH (08:13)
[2017-07-27] MEDS: Aspirin 81 MG TAB.CHEW PO SCH (08:13)
[2017-07-27] MEDS: FATTY ACIDS PO SCH (08:14)
[2017-07-27] MEDS: (Diclofenac Sodium [Voltaren] 2 GM) TP SCH (08:14)
[2017-07-27] MEDS: OMEGA PO SCH (08:14)
[2017-07-27] MEDS: *HR* OxyCODONE Immed Rel 5 MG TABLET PO PRN (08:24)
[2017-07-27] MEDS: Budesonide/Formoterol 160/4.5 MDI IH SCH (10:35)
[2017-07-27] MEDS: Tiotropium 18 MCG inhalation IH SCH (10:36)
--- NOTE | 2017-07-27 11:59 | Cardiology Progress Note ---
Date of Encounter: 07/27/17 Time of Encounter: 12:00 Assessment and Plan (1) Syncope Current Visit: Yes Status: Acute [place] scientific ICD interrogated yesterday--s/p x1 appropriate ICD shock for VT. Previously on amiodarone for VT, discontinued for unclear reasons. No further episodes since admission. Continue betablocker and agreesively replace electrolytes, recommend K >4.0, Mg >2.0 Repeat TTE shows improved LVEF, 50-55%. Upon review, patient reports he was not taking medications for a few days leading up to event. BP stable, will increase BB today. No further testing recommended, Cardiology will sign-off. Will coordinate appt in the outpatient setting. Qualifiers: Qualified Code(s): R55 - Syncope and collapse (2) Nonischemic cardiomyopathy Current Visit: Yes Status: Acute Longstanding history of NICMP s/p ICD. EF 30% per TTE 2016. Appears volume overload upon exam. Recent hospitalization at [place], CXR upon admission demonstrates possible PNA, on IV atb. Continue current medications. Strict I&O's, daily weights, Na/fluid restricted diet. TTE this admission shows improved LVEF, 50-55% (3) Anemia Current Visit: Yes Status: Acute HgB appears to be down ~2 grams from baseline. Monitor closely, on Xarelto. Denies abnormal or unusual bleeding. Consider in vs. outpatient GI consult. Defer further mgmt to primary service. Qualifiers: Qualified Code(s): D64.9 - Anemia, unspecified (4) PAF (paroxysmal atrial fibrillation) Current Visit: Yes Status: Acute Hx of PAF, on Xarelto. Currently in NSR. Continue BB. Discussion w patient/family: The assessment and plan as outlined above was discussed with the patient and/or family members who expressed understanding and agreement. All questions were answered. Thank you for involving us in the care of your patient. Please call with any questions. The patient was discussed and reviewed with Dr. Cassidy; Cardiology will sign- off. Subjective Principal diagnosis: ICD shock Interval history: Seen and examined. No further ICD shocks reported. Breathing seems to be better today, still with significant BLE edema. No chest pain or discomfort. No other symptoms reported including pre-syncope/ syncope. Denies abnormal or unusual bleeding including melena. Objective Vital Signs, Last 4 Hours Temp Pulse Resp Pulse Ox 07/27/17 11:25 97.3 F L 76 20 97 07/27/17 08:33 96 General: Conversant, No Apparent Distress HEENT: Atraumatic, Normocephaly, Mucus Membranes Moist Cardiac: Reg Rate and Rhythm, Normal S1 and S2 Lungs: Normal Breath Sounds Neuro: Alert and responsive Abdomen: Soft Extremities: Other (large BLE edema, +2-3) Results 07/27/17 03:13 07/27/17 03:13 Lab Results 07/27/17 07/27/17 03:13 03:13 WBC 12.5 H Hgb 8.8 L Hct 29.8 L Plt Count 264 Sodium 136 Potassium 4.0 D Chloride 96 L Carbon Dioxide 32 H BUN 49 H Creatinine 1.55 H Glucose 197 H Calcium 8.9 Magnesium 1.9 TSH 3.563 Active Medications Acetaminophen (Tylenol) 650 mg PO Q6HR PRN PRN Reason: Mild Pain/Fever Stop: 01/23/18 21:54 Albuterol Sulfate (Albuterol Inhaler) 2 puff IH Q6H PRN PRN Reason: Shortness Of Breath/Wheezing Stop: 01/23/18 22:00 Allopurinol (Zyloprim) 300 mg PO DAILY [facility] Stop: 01/24/18 09:01 Last Admin: 07/27/17 08:12 Dose: 300 mg Artificial Tears (Akwa Tears) 1 drop BOTH EYES HS [facility] Stop: 01/24/18 21:01 Last Admin: 07/26/17 20:37 Dose: 1 drop Aspirin (Aspirin) 162 mg PO DAILY JOHN Stop: 01/24/18 09:01 Last Admin: 07/27/17 08:13 Dose: 162 mg Budesonide/Formoterol Fumarate (Symbicort) 2 puff IH BIDR JOHN PRN Reason: Protocol Stop: 01/23/18 22:01 Last Admin: 07/27/17 10:35 Dose: 2 puff Carvedilol (Coreg) 12.5 mg PO BIDWM JOHN PRN Reason: Protocol Stop: 01/26/18 17:01 Colchicine (Colcrys) 0.6 mg PO DAILY JOHN Stop: 01/24/18 09:01 Last Admin: 07/27/17 08:13 Dose: 0.6 mg Dextrose/Water (Dextrose 50% (Syg)) 25 ml IVP AD PRN PRN Reason: Hypoglycemia Stop: 01/23/18 22:10 Ferrous Sulfate (Ferrous Sulfate) 325 mg PO DAILY@0800 [facility] Stop: 01/25/18 08:01 Last Admin: 07/27/17 08:13 Dose: 325 mg Glucagon (Glucagen) 1 mg IM ONCE PRN PRN Reason: Hypoglycemia Stop: 01/23/18 22:10 Glucose (Gluctose) 15 gm PO ONCE PRN PRN Reason: Hypoglycemia Stop: 01/23/18 22:10 Glucose (Gluctose) 30 gm PO ONCE PRN PRN Reason: Hypoglycemia Stop: 01/23/18 22:10 Hydroxychloroquine Sulfate (Plaquenuil) 200 mg PO BID [facility] Stop: 01/24/18 09:01 Last Admin: 07/27/17 08:13 Dose: 200 mg Levofloxacin/Dextrose (Levaquin Premix 750mg/150 Ml) 750 mg in 150 mls @ 100 mls/hr IVPB Q48H JOHN PRN Reason: Protocol Stop: 01/25/18 22:01 Last Admin: 07/26/17 22:00 Dose: 100 mls/hr Linezolid/Dextrose (Zyvox Premix 600mg/300ml) 600 mg in 300 mls @ 150 mls/hr IVPB Q12HR [facility] Stop: 01/24/18 06:01 Last Admin: 07/27/17 05:34 Dose: 150 mls/hr Piperacillin Sod/Tazobactam (Sod 3.375 gm/ Sodium Chloride) 100 mls @ 25 mls/ hr IVPB Q8HR [facility] Stop: 01/24/18 08:01 Last Admin: 07/27/17 08:13 Dose: 25 mls/hr Dextrose (Dextrose 5%) 1,000 mls @ 100 mls/hr IVC .Q10H PRN PRN Reason: HYPOGLYCEMIA Stop: 01/23/18 22:10 Insulin Detemir (Levemir) 80 unit SQ BID [facility] Stop: 01/25/18 21:01 Last Admin: 07/27/17 08:12 Dose: 80 unit Insulin Human Lispro (Humalog) 0 units SQ TIDAC [facility] PRN Reason: Protocol Stop: 01/24/18 07:31 Last Admin: 07/27/17 11:48 Dose: 12 units Insulin Human Lispro (Humalog) 0 units SQ HS [facility] PRN Reason: Protocol Stop: 01/23/18 22:12 Last Admin: 07/26/17 20:42 Dose: 8 units Insulin Human Lispro (Humalog) 10 units 0.08 units/kg (10 units) SQ TIDWM [facility] Stop: 01/25/18 12:01 Last Admin: 07/27/17 11:48 Dose: 10 units Levothyroxine Sodium (Synthroid) 12.5 mcg PO DAILY@0630 [facility] Stop: 01/27/18 06:31 Lidocaine HCl (Lmx 4) 5 gm TP BID PRN PRN Reason: Pain Stop: 01/23/18 22:00 Melatonin (Melatonin) 9 mg PO HS [facility] Stop: 01/24/18 21:01 Last Admin: 07/26/17 20:39 Dose: Not Given Metolazone (Zaroxolyn) 2.5 mg PO DAILY JOHN Stop: 01/24/18 09:01 Last Admin: 07/27/17 08:12 Dose: 2.5 mg Multi-Ingredient Ointment (Eucerin Creme) 1 appl TP DAILY [facility] Stop: 01/24/18 09:01 Last Admin: 07/27/17 08:12 Dose: Not Given Naloxone HCl (Narcan) 0.4 mg IVP Q2MIN PRN PRN Reason: SEE COMMENTS Stop: 01/23/18 21:54 Nitroglycerin (Nitroglycerin) 0.4 mg SL Q5M PRN PRN Reason: Chest Pain Stop: 01/23/18 22:00 Omeprazole (Prilosec) 20 mg PO BID JOHN PRN Reason: Protocol Stop: 01/24/18 09:01 Last Admin: 07/27/17 08:13 Dose: 20 mg Oxycodone HCl (Roxicodone) 5 mg PO Q6H PRN; Protocol PRN Reason: Severe Pain Stop: 01/23/18 22:00 Last Admin: 07/27/17 08:24 Dose: 5 mg Potassium Chloride (Potassium Chloride) 20 meq PO DAILY [facility] Stop: 01/24/18 09:01 Last Admin: 07/27/17 08:12 Dose: 20 meq Pregabalin (Lyrica) 75 mg PO TID [facility] Stop: 01/24/18 09:01 Last Admin: 07/27/17 08:13 Dose: 75 mg Rivaroxaban (Xarelto) 15 mg PO DAILY [facility] Stop: 01/24/18 09:01 Last Admin: 07/26/17 07:57 Dose: 15 mg Simvastatin (Zocor) 10 mg PO QPM JOHN Stop: 01/24/18 18:01 Last Admin: 07/26/17 16:57 Dose: 10 mg Spironolactone (Aldactone) 25 mg PO DAILY [facility] Stop: 01/24/18 09:01 Last Admin: 07/27/17 08:13 Dose: 25 mg Terazosin HCl (Hytrin) 1 mg PO HS JOHN Stop: 01/24/18 21:01 Last Admin: 07/26/17 20:38 Dose: 1 mg Tiotropium [place] (Spiriva) 18 mcg IH DAILY [facility] Stop: 01/24/18 09:01 Last Admin: 07/27/17 10:36 Dose: 18 mcg Torsemide (Demadex) 20 mg PO BIDDIURETIC JOHN Stop: 01/26/18 17:01 Vitamin D (Vitamin D) 1,000 unit PO DAILY JOHN Stop: 01/24/18 09:01 Last Admin: 07/27/17 08:13 Dose: 1,000 unit - Imaging and Cardiology Echo: report reviewed Other Results: 12 hour tele: avg HR=96 - EKG Interpretation EKG results cardiology: personally reviewed Consult Discharge Plan - Plan [facility]errals: [facility] [Primary Care Provider] -
--- NOTE | 2017-07-27 12:16 | Internal Med Progress Note ---
Date of Encounter: 07/27/17 Time of Encounter: 12:13 - Assessment and plan (1) HCAP (healthcare-associated pneumonia) Current Visit: Yes Status: Acute Assessment and plan: Patient has shortness of breath, increased cough with sputum, chest x-ray showed right lower lobe pneumonia. on broad spectrum abx with zyvox/zosyn/ levaquin. will d/c zyvox/zosyn and keep on levaquin. negative urine strep/ legionela. f/u on sputum cultures. (2) Syncope Current Visit: Yes Status: Acute Assessment and plan: Likely VT. s/p ICD shock. Cardiology consulted. carotids with 60-79% left proximal ICA stenosis. echo with EF of 50-55%. Qualifiers: Syncope type: unspecified Qualified Code(s): R55 - Syncope and collapse (3) Anemia Current Visit: Yes Status: Acute Assessment and plan: possibly anemia of chronic disease but MCV is 78. Has low iron stores. Will check FOBT. Would not give IV iron while treating an active infection. started oral iron. no signs of bleeding. Qualifiers: Anemia type: unspecified type Qualified Code(s): D64.9 - Anemia, unspecified (4) Congestive heart failure Current Visit: No Status: Acute Assessment and plan: Patient has systolic CHF with EF 30-35%. Continue beta martin, ANGELIKA inhibitor, Lasix and spironolactone Qualifiers: Heart failure type: systolic Heart failure chronicity: chronic Qualified Code(s): I50.22 - Chronic systolic (congestive) heart failure (5) Diabetes mellitus type 2, insulin dependent Current Visit: No Status: Chronic Assessment and plan: glucose is better controlled. Basal insulin increased 15 to 80 units BID from 70 units BID. c/w prandial coverage 10 units. Continue sliding scale insulin. Closely monitor glucose level (6) Elevated troponin Current Visit: No Status: Acute Assessment and plan: Patient denies chest pain. Most likely demand ischemia. .04 x3 (7) Afib Current Visit: No Status: Acute Assessment and plan: Patient is on pacemaker and right now pacing rhythm. Continue xarelto for anticoagulation Qualifiers: Atrial fibrillation type: chronic Qualified Code(s): I48.2 - Chronic atrial fibrillation (8) CKD (chronic kidney disease) stage 3, GFR 30-59 ml/min Current Visit: No Status: Acute Assessment and plan: Creatinine is at baseline. Avoid nephrotoxic medications. (9) DVT prophylaxis Current Visit: No Status: Acute Assessment and plan: Patient is on xarelto. - Time Spent With Patient Total time spent is greater than 50% in coordination of care (as documented) at patient's floor/unit and/or counseling patient: - Subjective Interval history: Patient was seen and examined. No acute events. cough is improved. Afebrile. ICD interrogation revealed Vtach s/p shock by ICD. Was admitted with healthcare associated pneumonia. Daughter reported she was taking her father to the [place] urgent care when she noticed him suddenly collapse with some sudden body jerking that she was thinking it was his ICD firing. - Constitutional Vitals: Temp Pulse Resp BP Pulse Ox 97.3 F L 76 20 138/77 97 07/27/17 11:25 07/27/17 11:25 07/27/17 11:25 07/27/17 06:06 07/27/17 11:25 General appearance: Present: A&O X 3, no acute distress, answers questions appropriately Exam: GEN: NAD CVS: RRR. S1, S2, No m/r/g RESP: Diminished with coarse breath sounds bilaterally. ABD: Soft, NT, ND, +BS EXT: Venous changes. Trace lower extremity edema.. 2+ DP. No rashes NEURO: Nonfocal Internal Medicine: Result - Labs CBC & Chem 7: 07/27/17 03:13 07/27/17 03:13 Labs: Short CBC 07/27/17 Range/Units 03:13 WBC 12.5 H (4.3-11.1) K/mcL Hgb 8.8 L (12.9-16.9) g/dL Hct 29.8 L (37.5-50.1) % Plt Count 264 (140-400) K/mcL Neutrophils # 8.1 (1.6-8.9) K/mcL BMP 07/27/17 03:13 Sodium 136 Potassium 4.0 D Chloride 96 L Carbon Dioxide 32 H BUN 49 H Creatinine 1.55 H Glucose 197 H Calcium 8.9 - Impressions Impressions Echocardiogram 07/25/17 22:06 Impressions: LVEF 50-55%. Not all LV wall segments were well visualized. Mild to moderately dilated LV. Indeterminate diastolic function. Atypical septal motion consistent with paced rhythm. Normal right ventricular structure and function. Mild mitral regurgitation. No pulmonary hypertension. Left Ventricular Wall Motion: Rest Echo Findings The mid anterior septal, mid inferior lateral, basal anterior septal and basal inferior lateral bustamante were not visualized. All other wall segments showed normal motion. Findings: Study Quality * Technically challenging due to body habitus. ECG Findings * Paced rhythm. Left Ventricle * Indeterminate diastolic function. * Mild-moderately dilated left ventricle. * LVEF 50-55%. * Atypical septal motion consistent with paced rhythm. Right Ventricle * Normal right ventricular structure and function. Left Atrium * Severely dilated left atrium. Right Atrium * Normal right atrial size. Aortic Valve * Aortic valve not well visualized. * No aortic stenosis. * No aortic regurgitation. Mitral Valve * Mitral valve not well visualized. * Mild mitral regurgitation. * No mitral stenosis. Tricuspid Valve * Tricuspid valve not well visualized. * Estimated RA pressure is 3 mmHg. * Estimated RVSP is 22 mmHg. * No pulmonary hypertension. Pulmonic Valve * Pulmonic valve not well visualized. * No pulmonic stenosis. * No pulmonic regurgitation. Aorta * Not well visualized. Pulmonary Artery * Pulmonary artery not well visualized. Pericardium * There is no pericardial effusion present. Device lead * A device lead was visualized in the right atrium and right ventricle. Interatrial Septum * No evidence of PFO by color Doppler. IVC * Normal IVC dimensions and inspiratory collapse. Consult Discharge Plan - Plan Referrals: [facility] [Primary Care Provider] -
--- NOTE | 2017-07-27 12:42 | Discharge Summary ---
- NOTES TO OUTPATIENT PROVIDER Notes to Outpatient Provider: We treated the patient for HCAP and syncopal episode due to V-tach. Please address those issues: I offered him to stay to check his stools for occult bleeding and he wanted to be discharged as he has a skin procedure on 07/29. His Xarelto is on hold for this procedure. 1 - left ICA stenosis 60-79%. May need referral to vascular or a follow up repeat image in 6-12 months. 2- Patient is noted to have a slow down trend in hgb since 2014. Hgb continue to drop while hospitalized here. Admissin hgb was 9.5 and was 8.8 on discharge. No signs of bleed. He told me he had coloscopy and EGD last year at the [facility] and I do not have those records. Patient is on Xarelto. Orders not resulted at time of discharge: Pending orders 07/25/17 02:48 Sputum Culture [Culture,Sputum with Gram Stain] [RM] Stat 07/27/17 12:20 Stool guiac [Occult Blood,Stool] [BF] Routine Date of Encounter: 07/27/17 Time of Encounter: 12:37 - Discharge Diagnosis (1) V-tach Priority: Primary Status: Acute (2) HCAP (healthcare-associated pneumonia) Priority: Primary Status: Acute (3) Syncope Priority: Primary Status: Acute Qualifiers: Syncope type: unspecified Qualified Code(s): R55 - Syncope and collapse (4) Anemia Priority: Primary Status: Acute Qualifiers: Anemia type: iron deficiency Iron deficiency anemia type: unspecified iron deficiency Qualified Code(s): D50.9 - Iron deficiency anemia, unspecified (5) Congestive heart failure Priority: Secondary Status: Acute Qualifiers: Heart failure type: systolic Heart failure chronicity: chronic Qualified Code(s): I50.22 - Chronic systolic (congestive) heart failure (6) Diabetes mellitus type 2, insulin dependent Priority: Secondary Status: Chronic (7) Elevated troponin Priority: Secondary Status: Acute (8) Afib Priority: Secondary Status: Acute Qualifiers: Atrial fibrillation type: chronic Qualified Code(s): I48.2 - Chronic atrial fibrillation (9) CKD (chronic kidney disease) stage 3, GFR 30-59 ml/min Priority: Secondary Status: Acute (10) Obesity, morbid, BMI 40.0-49.9 Priority: Secondary Status: Acute Hospital course: Mr. Altman is a 77 year old male presented to ER for shortness of breath since yesterday and syncope today. His past medical history is significant for systolic CHF, diabetes, COPD, CKD. He apparently also had a syncopal episode that was noted by his daughter. It was suspected that his ICD had fired. We admitted the patient and treat him for healthcare associated pneumonia and eventually we discharged him on Levaquin. We had cardiology see the patient and his ICD was interrogated and showed an episode of V. tach with appropriate shocking by his ICD. Cardiology up dosed his beta martin. He had carotid ultrasounds which showed left ICA stenosis 60-79%. The patient may need referral to vascular or a follow up repeat image in 6-12 months. An echocardiogram done showed improvement of his EF with an EF of 50-55% compared to 30-35% on previous echo. I did note that the patient had a slow drop in his hemoglobin since the last 3 years and over the last year as well. I did ask the patient if he had workup done in the past and he told me that he does see a access registrar at that [facility] and has had a colonoscopy and an endoscopy as well over the last year. No abnormal findings according to the patient. We did not have any records of those in our system. The patient was eager to be discharged which I was okay with as long as the patient followed up. He has a skin procedure on Saturday 07/29 for which he is holding his Xarelto. The patient had a white count of 14.9 on admission and at discharge was 12.5. He tells me that he has chronic leukocytosis for which a access registrar is following in the outpatient setting. Cultures remain negative at the time of discharge. We discharged the patient on Levaquin renally dosed to finish a 10 day course. - Time Spent with Patient Total time spent providing and/or coordinating discharge services: Greater than 30 minutes - Discharge Medications Prescriptions: Carvedilol [Coreg] 12.5 mg PO BIDWM #60 tablet Ferrous Sulfate 325 mg PO DAILY@0800 #30 tablet Levofloxacin [Levaquin] 750 mg PO Q48H #4 tablet Home Medications: Aspirin 162 mg PO DAILY 11/13/14 [History] Nitroglycerin [Nitrostat] 0.4 mg SL Q5M PRN 11/13/14 [History] [place]-3 Fatty Acids [[place]-3] 2,000 mg PO BID 11/13/14 [History] Potassium Chloride 20 meq PO DAILY 11/13/14 [History] Rivaroxaban [Xarelto] 15 mg PO DAILY 11/13/14 [History] Spironolactone 25 mg PO DAILY 11/13/14 [History] Terazosin HCl 1 mg PO HS 11/13/14 [History] Tiotropium [Spiriva] 18 mcg IH DAILY 11/13/14 [History] Acetaminophen [Tylenol] 650 mg PO TID PRN 06/05/16 [History] Albuterol Sulfate [Albuterol Inhaler] 2 puff IH Q6H PRN 06/05/16 [History] Cholecalciferol (D-3) [Vitamin D] 2,000 unit PO DAILY 06/05/16 [History] Diclofenac Sodium [Voltaren] 2 gm TP Q12H 06/05/16 [History] Eucerin Creme 1 appl TP DAILY 06/05/16 [History] Hydroxychloroquine [Plaquenuil] 200 mg PO BID 06/05/16 [History] Insulin ASPART [NovoLOG] 20 unit SQ BID 06/05/16 [History] Insulin Glargine,Hum.rec.anlog [Lantus Solostar] 70 unit SQ BID 06/05/16 [ History] Lidocaine 4% CRM (LMX) [Lmx 4] 1 appl TP BID PRN 06/05/16 [History] Mineral Oil/Petrolatum,White [Refresh P.m. Ointment] 1 appl BOTH EYES HS [History] Omeprazole [PriLOSEC] 20 mg PO BID 06/05/16 [History] Pregabalin [Lyrica] 75 mg PO TID 06/05/16 [History] Simvastatin [Zocor] 10 mg PO QPM 06/05/16 [History] Torsemide [Demadex] 20 mg PO BID 06/05/16 [History] metOLazone [Zaroxolyn] 2.5 mg PO DAILY 06/05/16 [History] Carvedilol [Coreg] 6.25 mg PO BIDWM #60 tablet 06/09/16 [Rx] Allopurinol [Zyloprim] 300 mg PO DAILY 07/24/17 [History] Budesonide/Formoterol 160/4.5 [Symbicort 160/4.5] 2 puff IH BIDR 07/24/17 [ History] Colchicine [Colcrys] 0.6 mg PO DAILY 07/24/17 [History] Insulin ASPART [NovoLOG] 30 unit SQ QPM 07/24/17 [History] Levothyroxine [Synthroid] 12.5 mcg PO QAM 07/24/17 [History] Melatonin [Melatin] 9 mg PO HS 07/24/17 [History] OxyCODONE Immed Rel [Roxicodone 5 MG] 5 mg PO Q6H PRN 07/24/17 [History] Carvedilol [Coreg] 12.5 mg PO BIDWM #60 tablet 07/27/17 [Rx] Ferrous Sulfate 325 mg PO DAILY@0800 #30 tablet 07/27/17 [Rx] Levofloxacin [Levaquin] 750 mg PO Q48H #4 tablet 07/27/17 [Rx] Allergies/Adverse Reactions: 3 Allergy/AdvReac Type Severity Reaction Status Date / Time codeine AdvReac Unknown See Verified 08/23/15 10:10 Comments atorvastatin [From Lipitor] AdvReac See Verified 06/05/16 16:47 Comments lisinopril AdvReac Cough Verified 08/23/15 10:10 pravastatin AdvReac See Verified 06/05/16 16:47 Comments rosuvastatin [From Crestor] AdvReac See Verified 08/23/15 10:10 Comments Date of admission: 07/24/17 21:53 Primary care physician: [facility] Consults: 07/24/17 22:07 Consult to Cardiology [CONS] Routine Comment: Consulting Provider: Card[facility] [place] Reason for Consult: Syncope suspect AICD malfunction Call Completed: No - Constitutional Vitals: Temp Pulse Resp BP Pulse Ox 97.3 F L 76 20 138/77 97 07/27/17 11:25 07/27/17 11:25 07/27/17 11:25 07/27/17 06:06 07/27/17 11:25 General appearance: Present: A&O X 3, no acute distress, answers questions appropriately Exam: GEN: NAD CVS: RRR. S1, S2, No m/r/g RESP: Diminished with coarse breath sounds bilaterally. ABD: Soft, NT, ND, +BS EXT: Venous changes. Trace lower extremity edema.. 2+ DP. No rashes NEURO: Nonfocal - Patient Status Disposition: Home, Self-Care Condition: Fair Overall status at discharge: patient is progressing back to baseline - Discharge Instructions Instructions: Pneumonia (DC) Follow Up With: [facility] [Primary Care Provider[facility] - 08/04/17 11:00 am (Please follow up as schedule...) - Diet and Activity Activity: increase activity as tolerated Diet: diabetic diet, low salt diet
[2017-07-27] MEDS ORDERED: Torsemide 20 MG TABLET PO SCH (17:00)
[2017-07-28] MEDS ORDERED: Levothyroxine 25 MCG TABLET PO SCH (06:30)
--- NOTE | 2017-07-31 08:57 | Electrocardiograph Report ---
[place] [id number] Test Date: 2017-07-24 Pat Name: Quinn Altman Department: 102 Room: 2A Gender: M Sorter Packer: Al : [id number] Requested By: [id number] Order Number: [id number] Reading MD: Ronald Townsend Measurements Intervals [place] Rate: 75 P: [place]: 0 QRS: 239 QRSD: 196 T: 59 QT: 484 QTc: 512 Interpretive Statements ELECTRONIC VENTRICULAR PACEMAKER ABNORMAL RHYTHM ECG Electronically Signed On 07-31-2017 8:55:44 EDT by Ronald Townsend
== END 2017-07-27 13:24 | disposition home or self-care (01) | DRG 308 ==
LOC: EMEROO 19:05 → 2ANU 19:05
PROVIDERS: ADMIT Internal Medicine; ATTEND Internal Medicine